=== PATIENT | male | born 1995 | race Caucasian/White ===

== ENCOUNTER → 2022-10-08 16:20 | Outpatient (BNVA) | payer SELFPAY | PROVIDERS: Family Provider Pediatrics Adolescent Medicine; PCP Pediatrics Adolescent Medicine; Visit Provider Registered Nurse Neonatal Intensive Care | DX: R50.9 Fever, unspecified (principal) | CPT/HCPCS: 87400 ==

== ENCOUNTER 2023-06-20 07:29 | Inpatient (IN) | payer SELFPAY ==
[2023-06-20] VITALS (50 sets, daily range): BP systolic 129–149; BP diastolic 83–101; PULSE 60–106; RESP 11–23; TEMP 36.9; O2SAT 97–100; BMI 21.7
--- NOTE | 2023-06-20 07:38 | ED_ITS ---
HPI - Abdominal Pain General: Chief Complaint: Abdominal Pain Stated Complaint: abd pain Time Seen by Provider: 06/20/23 07:37 Source: patient Mode of arrival: ambulatory History of Present Illness: 28 yo male presents to the emergency room with complaints of left lower quadrant abdominal pain that he states began yesterday. He denies any dysuria urgency or frequency he has been nauseated and vomited a couple of times. He has not had any hematochezia melena hematemesis or coffee-ground emesis. He is afebrile his vital signs are stable no hematuria dysuria urgency or frequency. MD elicited complaint: abdominal pain Onset (ago): day(s) (1) Location: [facility] Quality: cramping Exacerbating factors: nothing Relieving factors: nothing Associated Symptoms: Reports nausea and vomiting (x1); Denies anorexia, belching, bloating, change in bowel habits, change in stool character, chills, coffee ground emesis, constipation, GI cramping, diarrhea, dyspepsia, dysuria, excessive flatus, fever(s), heartburn, hematochezia, hematuria, hematemesis, fecal incontinence, loose stools, melena, poor appetite and syncope Review of Systems Const: Denies: fever(s) or chills ENMT: Denies: throat pain, ear or mastoid pain, nasal discharge or nasal congestion Card: Denies: chest pain or syncope Resp: Denies: dyspnea, productive cough or non-productive cough GI: Reports: abdominal pain, nausea and vomiting (x1); Denies: hematemesis, coffee ground emesis, heartburn, diarrhea, constipation, bloating, GI cramping, belching, excessive flatus, fecal incontinence, change in bowel habits, change in stool character, hematochezia or melena : Denies: dysuria, urinary frequency, urinary urgency or hematuria Skin/Breast: Denies: rash or pruritus PFSH ED PFSH: Family History (Updated 06/20/23 @ 09:34 by Mauro Harrell MD) Other Cancer Dementia Social History (Updated 06/20/23 @ 09:34 by Mauro Harrell MD) Smoking and tobacco status: current every day smoker Alcohol intake: current Substance/Drug Use: never Physical Exam Const: COMMON NORMALS: no acute distress GENERAL APPEARANCE: cooperative and comfortable ORIENTATION/CONSCIOUSNESS: Yes awake, Yes oriented to person, Yes oriented to place and Yes oriented to time HENMT: COMMON NORMALS: normocephalic, atraumatic and hearing grossly normal bilaterally HEAD & SCALP: normocephalic and atraumatic Resp: COMMON NORMALS: normal respiratory effort, No retractions, No use of accessory muscles and clear to auscultation bilaterally AUSCULTATION: clear to auscultation bilaterally Cardio: COMMON NORMALS: regular rate, regular rhythm and No murmurs present (Cardio) RATE: regular rate RHYTHM: regular rhythm GI: COMMON NORMALS: No hepatosplenomegaly present AUSCULTATION: Yes normoactive bowel sounds PALPATION: Yes Tenderness to palpation present (GI) Details: LLQ, No Guarding due to palpation present (GI) and Yes No hepatosplenomegaly present Extremity: COMMON NORMALS: normal to inspection, capillary refill normal, no clubbing, cyanosis or edema, no calf tenderness and no pedal edema Neuro: SENSORIUM/ORIENTATION: Yes oriented to person, Yes oriented to place and Yes oriented to time Skin: COMMON NORMALS: no rashes or lesions noted GENERAL SKIN EXAM: no rashes or lesions noted Course Vital Signs: Vital signs: Vital Signs Temperature 98.4 F 06/20/23 07:35 Pulse Rate 71 06/20/23 12:55 Respiratory Rate 12 06/20/23 12:55 Blood Pressure 138/101 06/20/23 12:55 Pulse Oximetry 98 06/20/23 12:55 Oxygen Delivery Me thod Room Air 06/20/23 10:26 MDM - Abdominal Pain Medical Decision Making Elevated liver enzymes and pancreatic enzymes. CT abdome showing the acute pancreatitis. No evidence of dilation and common bile duct there is some questi onable early necrotic areas on pancreas. We will admit discussed with hospitalist admit to ICU patient did admit to heavy alcohol use he is last drank 2 days ago he has had problems with withdrawal symptoms in the past Dr. Harrell seen the patient and written orders will admit to the ICU on [facility] protocol. Triglycerides are also elevated. Differential Diagnosis Likely abdominal pain, acute appendicitis, calculus of kidney, gastroenteritis and pancreatitis Medical Records I reviewed the patient's medical records. Lab Data I reviewed the patient's lab results. 06/20/23 07:43 06/20/23 07:43 Labs/Radiology: Laboratory Results WBC 9.78 10^3/uL (3.29-11.43) 06/20/23 07:43 RBC 5.08 10^6/uL (3.85-5.65) 06/20/23 07:43 Hgb 16.90 g/dL (11.27-16.99) 06/20/23 07:43 Hct 48.2 % (37-53) 06/20/23 07:43 MCV 94.9 fl (82-101) 06/20/23 07:43 MCH 33.3 pg (27-33) H 06/20/23 07:43 MCHC 35.1 g/dL (30-55) 06/20/23 07:43 RDW 10.6 % (12.1-15.1) L 06/20/23 07:43 Plt Count 147 10^3/cmm (157-399) L 06/20/23 07:43 MPV 10.6 fL (7.4-10.4) H 06/20/23 07:43 Neut % (Auto) 87.5 % 06/20/23 07:43 Lymph % (Auto) 8.5 % 06/20/23 07:43 [place] % (Auto) 3.4 % 06/20/23 07:43 Eos % (Auto) 0.1 % 06/20/23 07:43 Baso % (Auto) 0.3 % 06/20/23 07:43 Neut # (Auto) 8.56 10^3/uL (1.8-7.7) H 06/20/23 07:43 Lymph # (Auto) 0.8 10^3/uL (0.8-4.8) 06/20/23 07:43 [place] # (Auto) 0.3 10^3/uL (0.2-0.9) 06/20/23 07:43 Eos # (Auto) 0.0 10^3/uL (0.0-0.8) 06/20/23 07:43 Baso # (Auto) 0.0 10^3/uL (0.0-0.1) 06/20/23 07:43 Nucleated RBC % (auto) 0 % 06/20/23 07:43 Nucleated RBCs # 0.0 /100WBC 06/20/23 07:43 PT 12.90 SECONDS (12.1-14.9) 06/20/23 07:43 INR 0.95 (0.8-1.2) 06/20/23 07:43 Sodium 136 mmol/L (136-145) 06/20/23 07:43 Potassium 4.3 mmol/L (3.5-5.1) 06/20/23 07:43 Chloride 93 mmol/L (98-107) L 06/20/23 07:43 Carbon Dioxide 20 mmol/L (22-29) L 06/20/23 07:43 Anion Gap 27.3 (5-19) H 06/20/23 07:43 BUN 14 mg/dL (6-20) 06/20/23 07:43 Creatinine 0.7 mg/dL (0.7-1.2) 06/20/23 07:43 GFR Calculation 133.3 mL/min (90-130) H 06/20/23 07:43 Glucose 110 mg/dL (65-115) 06/20/23 07:43 Calculated Osmolality 283 mOsm/kg (285-295) L 06/20/23 07:43 Lactic Acid 1.1 mmol/L (0.5-2.2) 06/20/23 07:43 Calcium 9.8 mg/dL (8.5-10.5) 06/20/23 07:43 Magnesium 1.7 mg/dL (1.7-2.3) 06/20/23 07:43 Total Bilirubin 3.8 mg/dL (0.15-1.2) H 06/20/23 07:43 AST 357 U/L (0-40) H 06/20/23 07:43 ALT 141 U/L (0-41) H 06/20/23 07:43 Alkaline Phosphatase 343 U/L (40-130) H 06/20/23 07:43 Total Protein 8.8 g/dL (6.6-8.7) H 06/20/23 07:43 Albumin 4.5 g/dL (3.5-5.2) 06/20/23 07:43 Globulin 4.3 g/dL (1.3-4.6) 06/20/23 07:43 Triglycerides 691 mg/dL (0-150) H 06/20/23 07:43 LDL Cholesterol Direct 83 mg/dL (0-100) 06/20/23 07:43 Lipase 637 U/L (13-60) H 06/20/23 07:43 TSH 0.58 uIU/mL (0.27-4.20) 06/20/23 07:43 Urine Color [place] (Yellow) 06/20/23 07:52 Urine Appearance Hazy (CLEAR) A 06/20/23 07:52 Urine pH 5 (5-7) 06/20/23 07:52 Ur Specific [place] 1.025 (1.005-1.030) 06/20/23 07:52 Urine Protein Trace (Negative) 06/20/23 07:52 Urine Glucose (UA) Norm (Normal) 06/20/23 07:52 Urine Ketones 3+ (Negative) H 06/20/23 07:52 Urine Blood Trace (Negative) H 06/20/23 07:52 Urine Nitrate Negative (Negative) 06/20/23 07:52 Urine Bilirubin 2+ (Negative) H 06/20/23 07:52 Urine Urobilinogen 4 mg/dL (Negative) H 06/20/23 07:52 Ur Leukocyte Esterase Trace (Negative) H 06/20/23 07:52 Urine RBC 0-4 /hpf (0-2) H 06/20/23 07:52 Urine WBC 0-4 /hpf (0-5) H 06/20/23 07:52 Ur Squamous Epith Cells 0-4 /hpf (0-5) H 06/20/23 07:52 Ur Transition Epith Cell 0-4 /hpf 06/20/23 07:52 Amorphous Sediment Not Reportable 06/20/23 07:52 Urine Bacteria 2+ /hpf (NONE) H 06/20/23 07:52 Hyaline Casts 0-4 /lpf H 06/20/23 07:52 Coarse Granular Casts Rare /lpf 06/20/23 07:52 Urine Mucus 3+ /hpf 06/20/23 07:52 Hepatitis A IgM Ab Non-reactive (Nonreactive) 06/20/23 07:43 Hep Bs Antigen Non-reactive (Nonreactive) 06/20/23 07:43 Hep B Core IgM Ab Non-reactive (Nonreactive) 06/20/23 07:43 Hepatitis C Antibody Non-reactive (Nonreactive) 06/20/23 07:43 Discharge Plan Discharge Patient Disposition: Admitted As Inpatient Admit Provider: Mauro Harrell Clinical Impression: Acute pancreatitis, Hypertriglyceridemia, Alcoholism, Transaminitis Condition: Stable Coding Level of Care Code ED Research Group Director for [employer]
--- NOTE | 2023-06-20 07:55 | XR_ITS ---
WS: [id number] KUB, AP view, 06/20/2023 Clinical Data: abd pain Comparison: None. Findings: No abnormal intraabdominal masses or calcifications are seen. The central small bowel shows minimal d ilatation. There is air in the stomach and the colon. The bones of the lower thorax, lumbar spine, pe lvis and hips are unremarkable. Impression: Moderate dilatation of central small bowel loops which is probably from an ileus rather than an obstr uction.
[2023-06-20 07:56] LABS: Basophils % 0.3 %; Eosinophils % 0.1 %; Hematocrit 48.2 % (37-53); Lymphocytes # 0.8 10^3/uL (0.8-4.8); Lymphocytes % 8.5 %; Mean Corpuscular HGB Conc 35.1 g/dL (30-55); Mean Corpuscular Hemoglobin 33.3 pg (27-33); Mean Corpuscular Volume 94.9 fl (82-101); Mean Platelet Volume 10.6 fL (7.4-10.4); Monocytes # 0.3 10^3/uL (0.2-0.9); Monocytes % 3.4 %; Neutrophils # 8.56 10^3/uL (1.8-7.7); Neutrophils % 87.5 %; Nucleated Red Blood Cells % 0 %; Platelet Count 147 10^3/cmm (157-399); Red Blood Count 5.08 10^6/uL (3.85-5.65); Red Cell Distribution Width 10.6 % (12.1-15.1); White Blood Count 9.78 10^3/uL (3.29-11.43)
[2023-06-20 08:14] LABS: Add Urine Microscopic? YES; Bilirubin Urine 2+ (Negative); Blood Urine Trace (Negative); Glucose Urine UA Norm (Normal); Ketones Urine 3+ (Negative); Leukocyte Esterase Urine Trace (Negative); Nitrate Urine Negative (Negative); Protein Urine Trace (Negative); Specific Gravity, Urine 1.025 (1.005-1.030); Urine Appearance Hazy (CLEAR); Urine Color Amber (Yellow); Urobilinogen Urine 4 mg/dL (Negative); pH Urine 5 (5-7)
[2023-06-20 08:16] LABS: Bacteria Urine 2+ /hpf; Coarse Granular Casts Urine RARE /lpf; Hyaline Casts Urine 0-4 /lpf; Mucus Urine 3+ /hpf; RBC Urine 0-4 /hpf (0-2); Squamous Epithelial Cell Urine 0-4 /hpf (0-5); Transitional Epi Cells Urine 0-4 /hpf; WBC Urine 0-4 /hpf (0-5)
[2023-06-20 08:17] LABS: Add Urine Culture? No
[2023-06-20 08:18] LABS: Alanine Aminotransferase 141 U/L (0-41); Albumin Level 4.5 g/dL (3.5-5.2); Alkaline Phosphatase 343 U/L (40-130); Aspartate Amino Transferase 357 U/L (0-40); Blood Urea Nitrogen 14 mg/dL (6-20); Calcium 9.8 mg/dL (8.5-10.5); Carbon Dioxide 20 mmol/L (22-29); Chloride 93 mmol/L (98-107); Globulin 4.3 g/dL (1.3-4.6); Glomerular Filtration Rate 133.3 mL/min (90-130); Glucose 110 mg/dL (65-115); Osmolality Calculated 283 mOsm/kg (285-295); Sodium 136 mmol/L (136-145); Total Bilirubin 3.8 mg/dL (0.15-1.2); Total Protein 8.8 g/dL (6.6-8.7)
[2023-06-20 08:21] LABS: Anion Gap 27.3 (5-19); Potassium 4.3 mmol/L (3.5-5.1)
[2023-06-20 08:28] LABS: Lipase 637 U/L (13-60)
[2023-06-20] MEDS: lactated ringers 1,000 ML 999 ML IV ×2 (08:30→09:36)
--- NOTE | 2023-06-20 08:50 | CT_ITS ---
WS: [id number] CT ABDOMEN PELVIS TECHNIQUE: Contrast-enhanced CT of the abdomen and pelvis with coronal and sagittal reformatted image s. CLINICAL INFORMATION: abd pain COMPARISON: None. DLP: 394.[address] scans at [facility] use at least one of these dose optimization techniques: automated e xposure control; mA and/or kV adjustment per patient size (includes targeted exams where dose is matc hed to clinical indication); or iterative reconstruction. FINDINGS: Diffuse edema and heterogeneous enhancement involving pancreas worse involving the pancreatic head wi th diffuse surrounding fluid and edema compatible with acute pancreatitis. No drainable fluid collect ion or abscess. Portal vein and splenic vein appear patent. SMV appears patent. No intrahepatic bilia ry ductal dilatation. No significant common bile duct dilatation. Suggestion of pancreatic divisum. R ecommend follow-up to resolution. Mild gallbladder wall enhancement likely reactive. Hepatomegaly diffuse fatty filtration of the liver . Normal GE junction. Normal caliber abdominal aorta. Celiac and SMA are patent. Adrenal glands are normal. Normal renal pa renchymal enhancement. No hydronephrosis. Fluid and edema extends into the mid abdomen and RIGHT paracolic gutter. Small amount of free fluid i n the pelvis. Lung bases are well aerated. Normal lumbar spine. IMPRESSION: 1. Diffuse edema involving the pancreas worse involving the pancreatic head with diffuse heterogeneo us pancreatic parenchymal enhancement. Prominent surrounding fluid and edema compatible with acute pa ncreatitis. Suggestion of pancreatic divisum with prominent pancreatic head. Recommend follow-up to r esolution. 2. Hepatomegaly diffuse fatty infiltration of the liver. 3. Splenic vein and SMV are patent. Normal portal vein. 4. Common bile duct appears normal caliber of the pancreatic head. Mild reactive gallbladder wall en hancement Notified Alvaro Peck DO at 06/20/2023 9:46 AM.
[2023-06-20 09:12] LABS: INR 0.95 (0.8-1.2)
[2023-06-20 09:17] LABS: Lactic Sepsis W/Reflex 1.1 mmol/L (0.5-2.2); Triglycerides 691 mg/dL (0-150)
[2023-06-20] MEDS: iohexol 350 mg/mL 500 mL Btl (per mL) IV (09:20)
[2023-06-20 09:30] LABS: Hepatitis A Antibody IgM Non-Reactive (Nonreactive); Hepatitis B Core IgM Non-Reactive (Nonreactive); Hepatitis B Surface Antigen Non-Reactive (Nonreactive); Hepatitis C Virus Antibody Non-Reactive (Nonreactive)
--- NOTE | 2023-06-20 09:32 | P.HP_ITS ---
Providers/Chief Complaint Admitting Physician: Mauro Harrell MD Chief Complaint: abd pain History of Present Illness Patrick Gracia is a 28 year old male presenting to the emergency department with abdominal pain and vomiting. This started yesterday. No blood in emesis. No diarrhea. Last bowel movement yesterday, somewhat hard. Denies any past history of pancreatitis. Does admit to heavy drinking, many ounces per day for an extended period of time. Reports that when he stops drinking he usually withdraws within 2 days and it becomes severe enough that he starts drinking again. No history of any liver disease that he recalls. He denies taking any anti-inflammatories at home. No recent fevers, other ill family members, pancreas problems in the family. States his abdominal pain is mainly epigastric. No issues urinating. No history of IV drug use. Review of Systems General: Reports: 10 or more systems reviewed and unremarkable except in HPI and below Card: Denies: chest pain Resp: Denies: dyspnea GI: Reports: abdominal pain, nausea and vomiting; Denies: hematemesis, hematochezia or melena Medications/Allergies Home Medications Medication Instructions Recorded Confirmed Last Taken Type albuterol sulfate 90 mcg/actuation 2 puff inhalation Q6H PRN 10/08/22 06/20/23 Unknown Rx aerosol inhaler (Ventolin HFA) shortness of breath or wheezing #8.5 grams Allergies Allergy/AdvReac Type Severity Reaction Status Date / Time No Known Allergies Allergy Verified 06/20/23 07:39 PFSH Acute PFSH: Family History (Updated 06/20/23 @ 09:34 by Mauro Harrell MD) Other Cancer Dementia Social History (Updated 06/20/23 @ 09:34 by Mauro Harrell MD) Smoking and tobacco status: current every day smoker Alcohol intake: current Substance/Drug Use: never Vitals/I&O/Wt Last Vital Signs Temp 98.4 F 06/20/23 07:35 Pulse 76 06/20/23 07:35 Resp 18 06/20/23 07:35 BP 146/99 06/20/23 07:35 Pulse Ox 100 06/20/23 07:35 O2 Del Method Room Air 06/20/23 07:35 Weight last 48 hrs Weight 74.843 kg Physical Exam Narrative: General exam is a white male, reporting abdominal pain HEENT: Atraumatic and normocephalic. Oropharynx clear. Neck is supple no lymphadenopathy or thyromegaly Cardiovascular regular rate and rhythm without murmur, no S3 or S4 Lungs clear no wheezing or crackles Abdomen tenderness, supraumbilical, mainly in the epigastric and left upper quadrant area. Positive bowel sounds. Extremities no cyanosis clubbing or edema, cap refill brisk Skin no rash Neuro no obvious focal deficits. Data 06/20/23 07:43 06/20/23 07:43 Other Labs: Liver function tests are abnormal with a total bilirubin of 3.8, AST of 357, ALT 141, alk phos of 343. Calcium, albumin normal. Lactate that I obtained is 1.1. Triglyceride level which I instructed ER to obtain was 691. Lipase 637 TSH I have ordered and is pending Urinalysis 0-4 whites, 0-4 reds Hepatitis panel which I ordered is nonreactive KUB demonstrates moderate dilation of central bowel loops, possible ileus CT abdomen pelvis demonstrates diffuse edema of the pancreas, consistent with pancreatitis.Cannot rule out pancreatic divisum. Consider repeat scan in the future. Hepatomegaly is noted. No evidence of splenic or portal vein thrombosis. Bile duct does not appear obstructed. A&P Assessment and plan (1) Acute pancreatitis: Patient presents with symptomatology, and blood work consistent with acute pancreatitis. CT scan demonstrates findings as noted above. For triglyceridemia, will initiate insulin drip, D5, to lower triglyceride level Likely etiology is alcohol. We will provide him with rehabilitation i nformation. N.p.o. for now except ice chips. When no longer vomiting consider clear liquid diet Pain control with morphine No indication for antibiotics currently, continue to monitor closely Secondary to pancreatitis associated with hypertriglyceridemia in the face of alcoholism with high chance of withdrawal as he has reported withdrawal symptoms in the past at home he will be admitted to the ICU. (2) Hypertriglyceridemia: Likely secondary to alcoholism Secondary to pancreatitis with triglyceride level over 500 we will initiate insulin drip. This will require ICU care, close monitoring. Initiate insulin drip 0.1 units/kg/h Initiate D5 to prevent hypoglycemia. Goal of blood sugar 125-200. Check triglyceride level in 12 hours with electrolytes. Plan on discontinuing insulin drip when triglyceride level less than 500. Check TSH (3) Alcoholism: [facility] protocol Rehabilitation materials will be given (4) Transaminitis: Associated with elevated bilirubin as well. No evidence of obstruction on CT. Likely this is secondary to his alcoholism. Monitor this closely. I suspect with treatment his transaminitis will improve. Bilirubin may take several days before it starts decreasing. Repeat INR tomorrow Plan Full code Lovenox for DVT prophylaxis Attestations Medical Necessity Statement*: Will require greater than 2 midnight stay for evaluation and treatment of alc ohol induced pancreatitis Diagnoses Acute pancreatitis K85.90 Hypertriglyceridemia E78.1 Alcoholism F10.20 Transaminitis R74.01 Time Spent (min) 57
[2023-06-20] MEDS: sodium chloride 0.9% 1,000 ML 999 ML IV (09:36)
[2023-06-20 09:49] LABS: Magnesium 1.7 mg/dL (1.7-2.3); Thyroid Stimulating Hormone 0.58 uIU/mL (0.27-4.20)
[2023-06-20 10:01] LABS: LDL Cholesterol Direct 83 mg/dL (0-100)
[2023-06-20] MEDS: dextrose 5%-ns + KCl 20 20 MEQ/1,000 ML BAG 125 MEQ IV (11:19)
[2023-06-20] MEDS: pantoprazole 40 mg SDV IVP ×2 (11:20→22:01)
[2023-06-20] MEDS: morphine 4 mg/mL SDV 1 mL 2 MG IVP ×2 (11:20→13:02)
[2023-06-20] MEDS: enoxaparin 40 mg/0.4 mL Syringe SUBCUT (11:20)
[2023-06-20] MEDS: nicotine 21 mg Patch 1 PATCH TRANSDERMA (11:20)
[2023-06-20] MEDS: insulin regular-human 250 UNIT in sodium chloride 0.9% 250 ML 7.07 UNIT IV (11:22)
[2023-06-20 13:26] LABS: Glucose Point of Care 107 mg/dL (70-110)
[2023-06-20 13:26] LABS: Glucose Point of Care 87 mg/dL (70-110)
[2023-06-20 14:34] LABS: Glucose Point of Care 76 mg/dL (70-110)
[2023-06-20] MEDS: morphine 4 mg/mL SDV 1 mL IVP ×4 (15:10→23:53)
[2023-06-20] MEDS: dextrose 10% 1,000 ML 50 ML IV (16:05)
[2023-06-20 16:12] LABS: Glucose Point of Care 80 mg/dL (70-110)
[2023-06-20 17:20] LABS: Glucose Point of Care 57 mg/dL (70-110)
[2023-06-20 18:03] LABS: Glucose Point of Care 142 mg/dL (70-110)
[2023-06-20 18:16] LABS: Blood Urea Nitrogen 6 mg/dL (6-20); Calcium 8.4 mg/dL (8.5-10.5); Carbon Dioxide 26 mmol/L (22-29); Chloride 98 mmol/L (98-107); Glomerular Filtration Rate 159.3 mL/min (90-130); Glucose 145 mg/dL (65-115); Magnesium 1.7 mg/dL (1.7-2.3); Osmolality Calculated 278 mOsm/kg (285-295); Phosphorus 1.4 mg/dL (2.5-4.5); Sodium 134 mmol/L (136-145); Triglycerides 253 mg/dL (0-150)
[2023-06-20 18:18] LABS: Anion Gap 13.6 (5-19); Potassium 3.6 mmol/L (3.5-5.1)
[2023-06-20] MEDS: sodium chlor 0.9% + KCl 20 mEq 20 MEQ/1,000 ML BAG 125 MEQ IV (18:29)
[2023-06-20] MEDS: oxyCODONE-APAP 5-325 mg Tablet 1 TAB PO ×2 (19:26→23:03)
[2023-06-20 20:53] LABS: Glucose Point of Care 116 mg/dL (70-110)
[2023-06-21] VITALS (47 sets, daily range): BP systolic 113–148; BP diastolic 71–111; PULSE 57–101; RESP 13–23; TEMP 36.5–37.1; O2SAT 90–99
[2023-06-21] MEDS: TRAMadol 50 mg Tablet PO (00:47)
[2023-06-21] MEDS: LORazepam 2 mg/mL INJ 1 mL IVP ×2 (00:47→21:10)
[2023-06-21] MEDS: sodium chlor 0.9% + KCl 20 mEq 20 MEQ/1,000 ML BAG 125 MEQ IV ×3 (02:39→18:34)
[2023-06-21] MEDS: morphine 4 mg/mL SDV 1 mL IVP ×4 (02:42→14:11)
[2023-06-21 05:08] LABS: Basophils % 0.4 %; Eosinophils % 0.2 %; Hematocrit 43.3 % (37-53); Lymphocytes # 1.2 10^3/uL (0.8-4.8); Lymphocytes % 22.6 %; Mean Corpuscular HGB Conc 34.4 g/dL (30-55); Mean Corpuscular Hemoglobin 33.2 pg (27-33); Mean Corpuscular Volume 96.4 fl (82-101); Monocytes # 0.2 10^3/uL (0.2-0.9); Monocytes % 3.9 %; Neutrophils # 3.95 10^3/uL (1.8-7.7); Neutrophils % 72.5 %; Nucleated Red Blood Cells % 0 %; Platelet Count 98 10^3/cmm (157-399); Red Blood Count 4.49 10^6/uL (3.85-5.65); Red Cell Distribution Width 10.6 % (12.1-15.1); White Blood Count 5.44 10^3/uL (3.29-11.43)
[2023-06-21 05:27] LABS: Alanine Aminotransferase 82 U/L (0-41); Albumin Level 3.1 g/dL (3.5-5.2); Alkaline Phosphatase 218 U/L (40-130); Anion Gap 13.1 (5-19); Aspartate Amino Transferase 194 U/L (0-40); Blood Urea Nitrogen 6 mg/dL (6-20); Calcium 8.5 mg/dL (8.5-10.5); Carbon Dioxide 28 mmol/L (22-29); Chloride 99 mmol/L (98-107); Globulin 3.4 g/dL (1.3-4.6); Glomerular Filtration Rate 159.3 mL/min (90-130); Glucose 92 mg/dL (65-115); Magnesium 1.7 mg/dL (1.7-2.3); Osmolality Calculated 279 mOsm/kg (285-295); Potassium 4.1 mmol/L (3.5-5.1); Sodium 136 mmol/L (136-145); Total Bilirubin 2.8 mg/dL (0.15-1.2); Total Protein 6.5 g/dL (6.6-8.7); Triglycerides 198 mg/dL (0-150)
[2023-06-21 05:43] LABS: Slide Review Slide Review Perform
--- NOTE | 2023-06-21 08:54 | PC.NURSE ---
0730 Patient sleeping well with normal respirations, vitals stable.
[2023-06-21] MEDS: multivitamin therapeutic Tablet 1 TAB PO (09:22)
[2023-06-21] MEDS: folic acid 1 mg Tablet PO (09:31)
[2023-06-21] MEDS: thiamine 100 mg Tablet PO (09:31)
[2023-06-21] MEDS: enoxaparin 40 mg/0.4 mL Syringe SUBCUT (10:32)
[2023-06-21] MEDS: pantoprazole 40 mg SDV IVP ×2 (10:32→22:54)
[2023-06-21] MEDS: oxyCODONE-APAP 5-325 mg Tablet 1 TAB PO ×3 (10:54→21:10)
--- NOTE | 2023-06-21 13:34 | P.PN_ITS ---
Subjective Subjective: Patient tolerating clear liquids Complaining of mild discomfort midepigastric region Insulin drip turned off Vitals/I&O/Wt Last Vital Signs Temp 98.4 F 06/20/23 07:35 Pulse 76 06/21/23 08:30 Resp 16 06/21/23 10:54 BP 136/96 06/21/23 08:30 Pulse Ox 99 06/21/23 10:54 O2 Del Method Room Air 06/20/23 10:26 06/20/23 06/21/23 06/21/23 22:59 06:59 14:59 Intake Total 4043.598 / 5043.598 1000 / 6043.598 975 / 975 Output Total 600 / 600 500 / 500 Balance 4043.598 / 5043.598 400 / 5443.598 475 / 475 Weight last 48 hrs Weight 74.843 kg Physical Exam Narrative: Patient is awake and alert Mild tenderness midepigastric region Signs of dehydration improving Nonfocal neuro exam GCS 15 Currently on room Data 06/21/23 04:07 06/21/23 04:07 A&P Assessment and plan (1) Transaminitis: (2) Alcoholism: (3) Hypertriglyceridemia: (4) Acute pancreatitis: Plan I have asked patient to let us know if his pain is tolerable with advancement of diet which is clear liquids for today I have asked him to continue clear liquids for next 24 to 72 hours and then advance gradually, he will let us know by 4 PM if he would like to go home I will give him opioids, thiamine and folic acid He is motivated for alcohol cessation Full code Insulin drip turned off for hypertriglyceridemia Attestations Medical Necessity Statement*: Discharge later today versus tomorrow Diagnoses Transaminitis R74.01 Alcoholism F10.20 Hypertriglyceridemia E78.1 Acute pancreatitis K85.90
[2023-06-21] MEDS: ondansetron 2 mg/ML SDV 2 mL 4 MG IVP (21:10)
[2023-06-22] VITALS (10 sets, daily range): BP systolic 104–142; BP diastolic 78–96; PULSE 83–89; RESP 19–30; TEMP 36.9; O2SAT 96–97
[2023-06-22] MEDS: sodium chlor 0.9% + KCl 20 mEq 20 MEQ/1,000 ML BAG 125 MEQ IV (01:44)
--- NOTE | 2023-06-22 07:44 | P.DS_ITS ---
Discharge Providers Date of Admission: 06/20/23 09:12 Date of Discharge: June 21, 2023 Attending Provider at Admission: Mauro Harrell MD Attending Provider at Discharge: Richard Aguilera MD Diagnoses at Discharge Discharge Diagnosis (1) Acute pancreatitis: Status: Acute (2) Hypertriglyceridemia: Status: Acute (3) Alcoholism: Status: Acute (4) Transaminitis: Status: Acute Reason for Visit Reason for Visit: abd pain Hospital Course Hospital Course 28-year-old male who was admitted for management evaluation of abdominal pain, nausea and vomiting he was diagnosed with alcohol induced pancreatitis, he was started on insulin drip in the ICU for hypertriglyceridemia of 700, overnight his triglyceridemia improved he was started on clear liquid diet, insulin drip stopped, patient is requiring opioids for abdominal discomfort nausea vomiting has improved. I have counseled patient to quit alcohol. Patient is motivated for alcohol cessation. At the time of discharge I will give him opioids, thiamine and folic acid Physical Exam Narrative: Young male Signs of dehydration Mild abdominal tenderness on deep palpation midepigastric region Hemodynamically stable Afebrile Pleasant and cooperative No signs of confusion Discharge Data Studies Completed and Pending Completed Studies During Hospitalization Category Date Time Status CT abdomen pelvis w con* [id number] Stat Cat Scan 06/20/23 08:50 Completed XR KUB portable [id number] Stat Exams 06/20/23 07:55 Completed Laboratory Results WBC 5.44 10^3/uL (3.29-11.43) 06/21/23 04:07 RBC 4.49 10^6/uL (3.85-5.65) 06/21/23 04:07 Hgb 14.90 g/dL (11.27-16.99) 06/21/23 04:07 Hct 43.3 % (37-53) 06/21/23 04:07 MCV 96.4 fl (82-101) 06/21/23 04:07 MCH 33.2 pg (27-33) H 06/21/23 04:07 MCHC 34.4 g/dL (30-55) 06/21/23 04:07 RDW 10.6 % (12.1-15.1) L 06/21/23 04:07 Plt Count 98 10^3/cmm (157-399) L D 06/21/23 04:07 MPV 11.0 fL (7.4-10.4) H 06/21/23 04:07 Neut % (Auto) 72.5 % 06/21/23 04:07 Lymph % (Auto) 22.6 % 06/21/23 04:07 [place] % (Auto) 3.9 % 06/21/23 04:07 Eos % (Auto) 0.2 % 06/21/23 04:07 Baso % (Auto) 0.4 % 06/21/23 04:07 Neut # (Auto) 3.95 10^3/uL (1.8-7.7) 06/21/23 04:07 Lymph # (Auto) 1.2 10^3/uL (0.8-4.8) 06/21/23 04:07 [place] # (Auto) 0.2 10^3/uL (0.2-0.9) 06/21/23 04:07 Eos # (Auto) 0.0 10^3/uL (0.0-0.8) 06/21/23 04:07 Baso # (Auto) 0.0 10^3/uL (0.0-0.1) 06/21/23 04:07 Nucleated RBC % (auto) 0 % 06/21/23 04:07 Nucleated RBCs # 0.0 /100WBC 06/21/23 04:07 PT 12.90 SECONDS (12.1-14.9) 06/20/23 07:43 INR 0.95 (0.8-1.2) 06/20/23 07:43 Sodium 136 mmol/L (136-145) 06/21/23 04:07 Potassium 4.1 mmol/L (3.5-5.1) 06/21/23 04:07 Chloride 99 mmol/L (98-107) 06/21/23 04:07 Carbon Dioxide 28 mmol/L (22-29) 06/21/23 04:07 Anion Gap 13.1 (5-19) 06/21/23 04:07 BUN 6 mg/dL (6-20) 06/21/23 04:07 Creatinine 0.6 mg/dL (0.7-1.2) L 06/21/23 04:07 GFR Calculation 159.3 mL/min (90-130) H 06/21/23 04:07 Glucose 92 mg/dL (65-115) 06/21/23 04:07 POC Glucose 116 mg/dL (70-110) H 06/20/23 20:05 Calculated Osmolality 279 mOsm/kg (285-295) L 06/21/23 04:07 Lactic Acid 1.1 mmol/L (0.5-2.2) 06/20/23 07:43 Calcium 8.5 mg/dL (8.5-10.5) 06/21/23 04:07 Phosphorus 1.4 mg/dL (2.5-4.5) L 06/20/23 17:45 Magnesium 1.7 mg/dL (1.7-2.3) 06/21/23 04:07 Total Bilirubin 2.8 mg/dL (0.15-1.2) H 06/21/23 04:07 AST 194 U/L (0-40) H 06/21/23 04:07 ALT 82 U/L (0-41) H 06/21/23 04:07 Alkaline Phosphatase 218 U/L (40-130) H 06/21/23 04:07 Total Protein 6.5 g/dL (6.6-8.7) L D 06/21/23 04:07 Albumin 3.1 g/dL (3.5-5.2) L 06/21/23 04:07 Globulin 3.4 g/dL (1.3-4.6) 06/21/23 04:07 Triglycerides 198 mg/dL (0-150) H 06/21/23 04:07 LDL Cholesterol Direct 83 mg/dL (0-100) 06/20/23 07:43 Lipase 637 U/L (13-60) H 06/20/23 07:43 TSH 0.58 uIU/mL (0.27-4.20) 06/20/23 07:43 Urine Color [place] (Yellow) 06/20/23 07:52 Urine Appearance Hazy (CLEAR) A 06/20/23 07:52 Urine pH 5 (5-7) 06/20/23 07:52 Ur Specific [place] 1.025 (1.005-1.030) 06/20/23 07:52 Urine Protein Trace (Negative) 06/20/23 07:52 Urine Glucose (UA) Norm (Normal) 06/20/23 07:52 Urine Ketones 3+ (Negative) H 06/20/23 07:52 Urine Blood Trace (Negative) H 06/20/23 07:52 Urine Nitrate Negative (Negative) 06/20/23 07:52 Urine Bilirubin 2+ (Negative) H 06/20/23 07:52 Urine Urobilinogen 4 mg/dL (Negative) H 06/20/23 07:52 Ur Leukocyte Esterase Trace (Negative) H 06/20/23 07:52 Urine RBC 0-4 /hpf (0-2) H 06/20/23 07:52 Urine WBC 0-4 /hpf (0-5) H 06/20/23 07:52 Ur Squamous Epith Cells 0-4 /hpf (0-5) H 06/20/23 07:52 Ur Transition Epith Cell 0-4 /hpf 06/20/23 07:52 Amorphous Sediment Not Reportable 06/20/23 07:52 Urine Bacteria 2+ /hpf (NONE) H 06/20/23 07:52 Hyaline Casts 0-4 /lpf H 06/20/23 07:52 Coarse Granular Casts Rare /lpf 06/20/23 07:52 Urine Mucus 3+ /hpf 06/20/23 07:52 Hepatitis A IgM Ab Non-reactive (Nonreactive) 06/20/23 07:43 Hep Bs Antigen Non-reactive (Nonreactive) 06/20/23 07:43 Hep B Core IgM Ab Non-reactive (Nonreactive) 06/20/23 07:43 Hepatitis C Antibody Non-reactive (Nonreactive) 06/20/23 07:43 Vitals Last Vital Signs Temp 98.4 F 06/20/23 07:35 Pulse 76 06/21/23 08:30 Resp 16 06/21/23 10:54 BP 136/96 06/21/23 08:30 Pulse Ox 99 06/21/23 10:54 O2 Del Method Room Air 06/20/23 10:26 Discharge Plan Discharge Patient Disposition: Home Condition: Stable Prescriptions: New oxycodone-acetaminophen 5-325 mg Tablet 1 tab PO Q4H PRN (Reason: Moderate Pain) Qty: 14 0RF folic acid 1 mg Tablet 1 mg PO DAILY Qty: 30 0RF thiamine mononitrate (vit B1) [Vitamin B-1 (mononitrate)] 100 mg Tablet 100 mg PO DAILY Qty: 30 0RF ondansetron HCl 4 mg tablet 4 mg PO DAILY PRN (Reason: nausea and vomiting) 4 Days Qty: 14 0RF Continued acetaminophen 500 mg tablet 1,000 mg PO ONCE Qty: 2 0RF albuterol sulfate [Ventolin HFA] 90 mcg/actuation HFA aerosol inhaler 2 puff inhalation Q6H PRN (Reason: shortness of breath or wheezing) Qty: 8.5 0RF Discharge Orders: Discharge Order (Routine); Ordered 06/22/23 Ordered By: Richard Aguilera Discharge Diet: Clear Liquid Patient Instructions: Opioid Safety Discharge Attestations Time Spent in Discharge Care*: greater than 30 min Quality Metrics Clinical Quality Measures [ No reported AMI, CVA or VTE this stay] Coding Level of Care Code Acute Code for g Fwd Diagnoses Acute pancreatitis K85.90 Hypertriglyceridemia E78.1 Alcoholism F10.20 Transaminitis R74.01
[2023-06-22] MEDS: thiamine 100 mg Tablet PO (07:48)
[2023-06-22] MEDS: folic acid 1 mg Tablet PO (07:48)
[2023-06-22] MEDS: multivitamin therapeutic Tablet 1 TAB PO (07:49)
[2023-06-22] MEDS: oxyCODONE-APAP 5-325 mg Tablet 1 TAB PO (07:49)
== END 2023-06-22 10:22 | disposition home or self-care (01) | DRG 440 ==
LOC: ER 07:40 → ICU 09:44
PROVIDERS: Admitting Provider Internal Medicine; Emergency Provider Family Medicine; Visit Provider Internal Medicine
DX: K85.20 Alcohol induced acute pancreatitis without necrosis or infection (principal); E78.1 Pure hyperglyceridemia; E86.0 Dehydration; Z79.51 Long term (current) use of inhaled steroids; F10.20 Alcohol dependence, uncomplicated; F17.200 Nicotine dependence, unspecified, uncomplicated
CPT/HCPCS: 36415; 36416; 74018; 74177; 80048; 80053; 80074; 81001; 82962; 83605; 83690; 83721; 83735; 84100; 84443; 84478; 85025; 85610; 96360; 96361; 96372; 96376; 99285; C9113; J1650; J1815; J2060; J2270; J2405; J3411; J3480; J7030; J7050; J7120; Q9967

== ENCOUNTER 2023-06-24 20:13 | Emergency (ER) | payer SELFPAY ==
[2023-06-24 20:36] VITALS: BP 142/92; PULSE 97; RESP 18; TEMP 36.8; O2SAT 100; BMI 21.7
--- NOTE | 2023-06-24 21:32 | W.ED.ABDPA2 ---
Documented by User: Sammy Boyle MD 06/24/23 21:40 HPI - Abdominal Pain General: Chief Complaint: Abdominal Pain Stated Complaint: Eyes turning Yellow Time Seen by Provider: 06/24/23 20:24 Source: patient and family (mother and girlfriend) History of Present Illness: This 28-year-old male who was discharged from the hospital 3 days ago with acute pancreatitis, presents to the ER stating that his sclera and skin have been noticeably jaundiced and his urine has been deep yellow in color. He also complains of the left lower quadrant pain that has worsened. He denies fever, nausea or vomiting. He noted that as at yesterday, the jaundice was worse but today, it slightly better. He appears clinically stable. Associated Symptoms: Denies chills and dysuria Review of Systems Narrative: Jaundice Const: Denies: chills, body aches or change in appetite Eyes: Denies: change in vision or eye discharge ENMT: Denies: throat pain, dental pain or nasal discharge Card: Denies: chest pain or lightheadedness GI: Reports: abdominal pain (LLQ) : Denies: dysuria Musc: Denies: neck pain or back pain Neuro: Denies: headache(s) or weakness in extremities Psych: Denies: depression Asad/Lymph: Denies: easy bruising All/Imm: Denies: urticaria, tongue swelling or facial swelling PFSH ED PFSH: Medical History (Updated 06/25/23 @ 00:45 by Norman Vieyra DO) Acute pancreatitis Alcoholism Hypertriglyceridemia Transaminitis Family History (Updated 06/20/23 @ 09:34 by Mauro Harrell MD) Other Cancer Dementia Social History (Updated 06/20/23 @ 09:34 by Mauro Harrell MD) Smoking and tobacco status: current every day smoker Alcohol intake: current Substance/Drug Use: never Physical Exam Const: COMMON NORMALS: no acute distress, patient oriented x3, no limitations and alert HENMT: COMMON NORMALS: normocephalic HEAD & SCALP: normocephalic Eye: COMMON NORMALS: EOMs intact bilaterally Neck/C-Spine: COMMON NORMALS: full ROM and supple Chest: COMMONS NORMALS: normal inspection of the chest Resp: COMMON NORMALS: normal respiratory effort, No retractions, No use of accessory muscles and clear to auscultation bilaterally AUSCULTATION: clear to auscultation bilaterally Cardio: COMMON NORMALS: regular rate, regular rhythm and No murmurs present (Cardio) RATE: regular rate RHYTHM: regular rhythm GI: COMMON NORMALS: Normal to inspection, nondistended, normoactive bowel sounds present PALPATION: Yes Tenderness to palpation present (GI) Details: LLQ : COMMON NORMALS: Yes no CVA tenderness BLADDER/KIDNEY EXAM: Yes no CVA tenderness Back/Pelvis: COMMON NORMALS: no CVA tenderness and no thoracic nor lumbar tenderness Extremity: GENERAL: Yes normal exam except as noted Neuro: COMMON NORMALS: patient oriented x3 and no focal motor deficits SENSORIUM/ORIENTATION: Yes alert Psych: COMMON NORMALS: mental status grossly normal and cooperative Course Vital Signs: Vital signs: Vital Signs Temperature 98.2 F 06/24/23 20:36 Pulse Rate 84 06/25/23 00:42 Respiratory Rate 16 06/25/23 00:42 Blood Pressure 141/97 06/25/23 00:42 Pulse Oximetry 100 06/25/23 00:42 Oxygen Delivery Me thod Room Air 06/24/23 20:36 MDM - Abdominal Pain Lab Data 06/24/23 21:56 06/24/23 21:56 Labs/Radiology: Radiology Impressions Abdomen/Pelvis CT 06/24/23 21:40 IMPRESSION: Findings of pancreatitis showing some improvement compared with 06/20/2023. Laboratory Results WBC 5.34 10^3/uL (3.29-11.43) 06/24/23 21:56 RBC 3.65 10^6/uL (3.85-5.65) L 06/24/23 21:56 Hgb 12.10 g/dL (11.27-16.99) 06/24/23 21:56 Hct 34.8 % (37-53) L 06/24/23 21:56 MCV 95.3 fl (82-101) 06/24/23 21:56 MCH 33.2 pg (27-33) H 06/24/23 21:56 MCHC 34.8 g/dL (30-55) 06/24/23 21:56 RDW 10.8 % (12.1-15.1) L 06/24/23 21:56 Plt Count 179 10^3/cmm (157-399) 06/24/23 21:56 MPV 9.6 fL (7.4-10.4) 06/24/23 21:56 Neut % (Auto) 53.0 % 06/24/23 21:56 Lymph % (Auto) 27.3 % 06/24/23 21:56 Gregg % (Auto) 15.7 % 06/24/23 21:56 Eos % (Auto) 1.9 % 06/24/23 21:56 Baso % (Auto) 0.6 % 06/24/23 21:56 Neut # (Auto) 2.83 10^3/uL (1.8-7.7) 06/24/23 21:56 Lymph # (Auto) 1.5 10^3/uL (0.8-4.8) 06/24/23 21:56 Gregg # (Auto) 0.8 10^3/uL (0.2-0.9) 06/24/23 21:56 Eos # (Auto) 0.1 10^3/uL (0.0-0.8) 06/24/23 21:56 Baso # (Auto) 0.0 10^3/uL (0.0-0.1) 06/24/23 21:56 Nucleated RBC % (auto) 0 % 06/24/23 21:56 Nucleated RBCs # 0.0 /100WBC 06/24/23 21:56 PT 13.10 SECONDS (12.1-14.9) 06/24/23 21:56 INR 0.96 (0.8-1.2) 06/24/23 21:56 Sodium 138 mmol/L (136-145) 06/24/23 21:56 Potassium 3.2 mmol/L (3.5-5.1) L 06/24/23 21:56 Chloride 99 mmol/L (98-107) 06/24/23 21:56 Carbon Dioxide 29 mmol/L (22-29) 06/24/23 21:56 Anion Gap 13.2 (5-19) 06/24/23 21:56 BUN 6 mg/dL (6-20) 06/24/23 21:56 Creatinine 0.5 mg/dL (0.7-1.2) L 06/24/23 21:56 GFR Calculation 196.6 mL/min (90-130) H 06/24/23 21:56 Glucose 98 mg/dL (65-115) 06/24/23 21:56 Calculated Osmolality 284 mOsm/kg (285-295) L 06/24/23 21:56 Calcium 9.8 mg/dL (8.5-10.5) 06/24/23 21:56 Total Bilirubin 1.9 mg/dL (0.15-1.2) H 06/24/23 21:56 Total Bilirubin 2.0 mg/dL (0.15-1.2) H 06/24/23 21:56 Direct Bilirubin 1.00 mg/dL (0.00-0.30) H 06/24/23 21:56 Indirect Bilirubin 1.00 06/24/23 21:56 AST 89 U/L (0-40) H 06/24/23 21:56 ALT 60 U/L (0-41) H 06/24/23 21:56 Alkaline Phosphatase 201 U/L (40-130) H 06/24/23 21:56 Total Protein 7.7 g/dL (6.6-8.7) 06/24/23 21:56 Albumin 3.9 g/dL (3.5-5.2) 06/24/23 21:56 Globulin 3.8 g/dL (1.3-4.6) 06/24/23 21:56 Urine Color Dark yellow (Yellow) 06/24/23 22:08 Urine Appearance Clear (CLEAR) 06/24/23 22:08 Urine pH 7 (5-7) 06/24/23 22:08 Ur Specific [place] 1.020 (1.005-1.030) 06/24/23 22:08 Urine Protein Neg (Negative) 06/24/23 22:08 Urine Glucose (UA) Norm (Normal) 06/24/23 22:08 Urine Ketones Negative (Negative) 06/24/23 22:08 Urine Blood Neg (Negative) 06/24/23 22:08 Urine Nitrate Negative (Negative) 06/24/23 22:08 Urine Bilirubin 2+ (Negative) H 06/24/23 22:08 Urine Urobilinogen 4+ mg/dL (Negative) H 06/24/23 22:08 Ur Leukocyte Esterase Negative (Negative) 06/24/23 22:08 Discharge Plan Discharge Patient Disposition: Home Clinical Impression: Acute pancreatitis Qualifiers: Pancreatitis type: unspecified pancreatitis type Acute pancreatitis complication: unspecified Qualified Code(s): K85.90 - Acute pancreatitis without necrosis or infection, unspecified Condition: Stable Prescriptions: No Action acetaminophen 500 mg tablet 1,000 mg PO ONCE Qty: 2 0RF albuterol sulfate [Ventolin HFA] 90 mcg/actuation HFA aerosol inhaler 2 puff inhalation Q6H PRN (Reason: shortness of breath or wheezing) Qty: 8.5 0RF oxycodone-acetaminophen 5-325 mg Tablet 1 tab PO Q4H PRN (Reason: Moderate Pain) Qty: 14 0RF folic acid 1 mg Tablet 1 mg PO DAILY Qty: 30 0RF Vitamin B-1 (mononitrate) 100 mg Tablet 100 mg PO DAILY Qty: 30 0RF ondansetron HCl 4 mg tablet 4 mg PO DAILY PRN (Reason: nausea and vomiting) 4 Days Qty: 14 0RF Discharge Orders: Discharge ED (Routine); Ordered 06/25/23 Ordered By: Norman Vieyra Referrals: Katlin Sheppard FNP [Primary Care Provider] - 1 week Patient Instructions: Pancreatitis (ED) Activity Restrictions/Additional Instructions: Follow-up with your primary care practitioner within the next 7 days for further evaluation and testing including lab work. Sign Out Sign Out Data: Sign Out Comment: Patient was discharged from this hospital following an admission for acute pancreatitis. He presents with worsening jaundice and left lower quadrant pain. Labs and CT abdomen/pelvis ordered. Patient care transferred to Dr. Vieyra at end of shift. Last updated by Sammy Boyle MD at 06/24/23 22:51 Coding Level of Care Code ED Clinical Research Spec for Chg Fwd Documented by User: Norman Vieyra, 06/25/23 00:47 HPI - Abdominal Pain General: Chief Complaint: Abdominal Pain Stated Complaint: Eyes turning Yellow Time Seen by Provider: 06/24/23 20:24 PFSH ED PFSH: Medical History (Updated 06/25/23 @ 00:45 by Norman Vieyra DO) Acute pancreatitis Alcoholism Hypertriglyceridemia Transaminitis Family History (Updated 06/20/23 @ 09:34 by Mauro Harrell MD) Other Cancer Dementia Social History (Updated 06/20/23 @ 09:34 by Mauro Harrell MD) Smoking and tobacco status: current every day smoker Alcohol intake: current Substance/Drug Use: never Course Vital Signs: Vital signs: Vital Signs Temperature 98.2 F 06/24/23 20:36 Pulse Rate 84 06/25/23 00:42 Respiratory Rate 16 06/25/23 00:42 Blood Pressure 141/97 06/25/23 00:42 Pulse Oximetry 100 06/25/23 00:42 Oxygen Delivery Me thod Room Air 06/24/23 20:36 MDM - Abdominal Pain Medical Decision Making Patient presents to the ER with worsening jaundice and suspected diagnosis of pancreatitis on Friday. Lab work was obtained as well as CT scan all of which essentially are improving. Patient be discharged home to follow-up with PCP within the next 7 days. Medical Records I reviewed the patient's medical records. Lab Data I reviewed the patient's lab results. 06/24/23 21:56 06/24/23 21:56 Labs/Radiology: Radiology Impressions Abdomen/Pelvis CT 06/24/23 21:40 IMPRESSION: Findings of pancreatitis showing some improvement compared with 06/20/2023. Laboratory Results WBC 5.34 10^3/uL (3.29-11.43) 06/24/23 21:56 RBC 3.65 10^6/uL (3.85-5.65) L 06/24/23 21:56 Hgb 12.10 g/dL (11.27-16.99) 06/24/23 21:56 Hct 34.8 % (37-53) L 06/24/23 21:56 MCV 95.3 fl (82-101) 06/24/23 21:56 MCH 33.2 pg (27-33) H 06/24/23 21:56 MCHC 34.8 g/dL (30-55) 06/24/23 21:56 RDW 10.8 % (12.1-15.1) L 06/24/23 21:56 Plt Count 179 10^3/cmm (157-399) 06/24/23 21:56 MPV 9.6 fL (7.4-10.4) 06/24/23 21:56 Neut % (Auto) 53.0 % 06/24/23 21:56 Lymph % (Auto) 27.3 % 06/24/23 21:56 Gregg % (Auto) 15.7 % 06/24/23 21:56 Eos % (Auto) 1.9 % 06/24/23 21:56 Baso % (Auto) 0.6 % 06/24/23 21:56 Neut # (Auto) 2.83 10^3/uL (1.8-7.7) 06/24/23 21:56 Lymph # (Auto) 1.5 10^3/uL (0.8-4.8) 06/24/23 21:56 Gregg # (Auto) 0.8 10^3/uL (0.2-0.9) 06/24/23 21:56 Eos # (Auto) 0.1 10^3/uL (0.0-0.8) 06/24/23 21:56 Baso # (Auto) 0.0 10^3/uL (0.0-0.1) 06/24/23 21:56 Nucleated RBC % (auto) 0 % 06/24/23 21:56 Nucleated RBCs # 0.0 /100WBC 06/24/23 21:56 PT 13.10 SECONDS (12.1-14.9) 06/24/23 21:56 INR 0.96 (0.8-1.2) 06/24/23 21:56 Sodium 138 mmol/L (136-145) 06/24/23 21:56 Potassium 3.2 mmol/L (3.5-5.1) L 06/24/23 21:56 Chloride 99 mmol/L (98-107) 06/24/23 21:56 Carbon Dioxide 29 mmol/L (22-29) 06/24/23 21:56 Anion Gap 13.2 (5-19) 06/24/23 21:56 BUN 6 mg/dL (6-20) 06/24/23 21:56 Creatinine 0.5 mg/dL (0.7-1.2) L 06/24/23 21:56 GFR Calculation 196.6 mL/min (90-130) H 06/24/23 21:56 Glucose 98 mg/dL (65-115) 06/24/23 21:56 Calculated Osmolality 284 mOsm/kg (285-295) L 06/24/23 21:56 Calcium 9.8 mg/dL (8.5-10.5) 06/24/23 21:56 Total Bilirubin 1.9 mg/dL (0.15-1.2) H 06/24/23 21:56 Total Bilirubin 2.0 mg/dL (0.15-1.2) H 06/24/23 21:56 Direct Bilirubin 1.00 mg/dL (0.00-0.30) H 06/24/23 21:56 Indirect Bilirubin 1.00 06/24/23 21:56 AST 89 U/L (0-40) H 06/24/23 21:56 ALT 60 U/L (0-41) H 06/24/23 21:56 Alkaline Phosphatase 201 U/L (40-130) H 06/24/23 21:56 Total Protein 7.7 g/dL (6.6-8.7) 06/24/23 21:56 Albumin 3.9 g/dL (3.5-5.2) 06/24/23 21:56 Globulin 3.8 g/dL (1.3-4.6) 06/24/23 21:56 Urine Color Dark yellow (Yellow) 06/24/23 22:08 Urine Appearance Clear (CLEAR) 06/24/23 22:08 Urine pH 7 (5-7) 06/24/23 22:08 Ur Specific [place] 1.020 (1.005-1.030) 06/24/23 22:08 Urine Protein Neg (Negative) 06/24/23 22:08 Urine Glucose (UA) Norm (Normal) 06/24/23 22:08 Urine Ketones Negative (Negative) 06/24/23 22:08 Urine Blood Neg (Negative) 06/24/23 22:08 Urine Nitrate Negative (Negative) 06/24/23 22:08 Urine Bilirubin 2+ (Negative) H 06/24/23 22:08 Urine Urobilinogen 4+ mg/dL (Negative) H 06/24/23 22:08 Ur Leukocyte Esterase Negative (Negative) 06/24/23 22:08 Discharge Plan Discharge Patient Disposition: Home Clinical Impression: Acute pancreatitis Qualifiers: Pancreatitis type: unspecified pancreatitis type Acute pancreatitis complication: unspecified Qualified Code(s): K85.90 - Acute pancreatitis without necrosis or infection, unspecified Condition: Stable Prescriptions: No Action acetaminophen 500 mg tablet 1,000 mg PO ONCE Qty: 2 0RF albuterol sulfate [Ventolin HFA] 90 mcg/actuation HFA aerosol inhaler 2 puff inhalation Q6H PRN (Reason: shortness of breath or wheezing) Qty: 8.5 0RF oxycodone-acetaminophen 5-325 mg Tablet 1 tab PO Q4H PRN (Reason: Moderate Pain) Qty: 14 0RF folic acid 1 mg Tablet 1 mg PO DAILY Qty: 30 0RF Vitamin B-1 (mononitrate) 100 mg Tablet 100 mg PO DAILY Qty: 30 0RF ondansetron HCl 4 mg tablet 4 mg PO DAILY PRN (Reason: nausea and vomiting) 4 Days Qty: 14 0RF Discharge Orders: Discharge ED (Routine); Ordered 06/25/23 Ordered By: Norman Vieyra Referrals: Katlin Sheppard FNP [Primary Care Provider] - 1 week Patient Instructions: Pancreatitis (ED) Activity Restrictions/Additional Instructions: Follow-up with your primary care practitioner within the next 7 days for further evaluation and testing including lab work. Sign Out Sign Out Data: Sign Out Comment: Patient was discharged from this hospital following an admission for acute pancreatitis. He presents with worsening jaundice and left lower quadrant pain. Labs and CT abdomen/pelvis ordered. Patient care transferred to Dr. Vieyar at end of shift. Last updated by Sammy Boyle MD at 06/24/23 22:51 Coding Level of Care Code ED Clinical Research Spec for [facility]
--- NOTE | 2023-06-24 21:40 | CTR_ITS ---
PROCEDURE INFORMATION: Exam: CT Abdomen And Pelvis With Contrast Exam date and time: 06/24/2023 10:15 PM Age: 28 years old Clinical indication: Abdominal pain; Localized; Left lower quadrant (llq); Patient HX: Patient was just in icu here last weekend, abdn labs and pancreatitis. Patient says his urine has gotten really dark TECHNIQUE: Imaging protocol: Computed tomography of the abdomen and pelvis with contrast. Radiation optimization: All CT scans at this facility use at least one of these dose optimization techniques: automated exposure control; mA and/or kV adjustment per patient size (includes targeted exams where dose is matched to clinical indication); or iterative reconstruction. Contrast material: OMNI 350; Contrast volume: 80 ml; Contrast route: INTRAVENOUS (IV); REPORTING DATA: Count of CT and Cardiac NM exams in prior 12 months: This patient has received [address] and 0 known cardiac nuclear medicine studies in the 12 months prior to the current study. COMPARISON: CT abdomen pelvis w con* [id number] 06/20/2023 8:56 AM RADIATION DOSE METRICS: Total DLP (mGy-cm): 426.83 FINDINGS: Liver: There is no focal abnormality within the liver. Gallbladder and bile ducts: There is mild diffuse thickening of the gallbladder wall. Gallbladder is not distended. This could be reactive to the pancreatitis. There is no common bile duct dilation. Pancreas: Pancreas enhances uniformly. Spleen: The spleen is normal. Adrenal glands: The adrenal glands are normal. Kidneys and ureters: The kidneys are normal. There is no evidence of hydronephrosis. There is no evidence of renal or ureteral calcifications. Stomach and bowel: There is no evidence of colitis/diverticulitis. There is no evidence of intestinal obstruction. Appendix: Not identified Intraperitoneal space: There is a small amount of ascites within the posterior pelvis. Vasculature: The aorta is normal. There is no evidence of an abdominal aortic aneurysm. Lymph nodes: There are small periaortic lymph nodes but no adenopathy. Urinary bladder: Unremarkable as visualized. Reproductive: Unremarkable as visualized. Bones/joints: Unremarkable. No acute fracture. Soft tissues: There is enlargement of the pancreas diffusely with peripancreatic fluid and some fluid extending along Gerota's fascia on the left consistent with acute pancreatitis. The amount of peripancreatic fluid is decreased compared with 06/20/2023. No drainable fluid collection or pseudocyst is identified. CT/CT abdomen pelvis w con* [id number] IMPRESSION: Findings of pancreatitis showing some improvement compared with 06/20/2023.
[2023-06-24] MEDS: morphine 4 mg/mL SDV 1 mL IVP (21:55)
[2023-06-24 22:03] LABS: Basophils % 0.6 %; Eosinophils # 0.1 10^3/uL (0.0-0.8); Eosinophils % 1.9 %; Hematocrit 34.8 % (37-53); Lymphocytes # 1.5 10^3/uL (0.8-4.8); Lymphocytes % 27.3 %; Mean Corpuscular HGB Conc 34.8 g/dL (30-55); Mean Corpuscular Hemoglobin 33.2 pg (27-33); Mean Corpuscular Volume 95.3 fl (82-101); Mean Platelet Volume 9.6 fL (7.4-10.4); Monocytes # 0.8 10^3/uL (0.2-0.9); Monocytes % 15.7 %; Neutrophils # 2.83 10^3/uL (1.8-7.7); Nucleated Red Blood Cells % 0 %; Platelet Count 179 10^3/cmm (157-399); Red Blood Count 3.65 10^6/uL (3.85-5.65); Red Cell Distribution Width 10.8 % (12.1-15.1); White Blood Count 5.34 10^3/uL (3.29-11.43)
[2023-06-24 22:16] LABS: Add Urine Microscopic? NO; Charge for UA Resulting for Rev
[2023-06-24 22:17] LABS: INR 0.96 (0.8-1.2)
[2023-06-24] MEDS: iohexol 350 mg/mL 500 mL Btl (per mL) IV (22:19)
[2023-06-24 22:25] VITALS: BP 148/100; PULSE 95; RESP 16; O2SAT 96
[2023-06-24 22:28] LABS: Alanine Aminotransferase 60 U/L (0-41); Albumin Level 3.9 g/dL (3.5-5.2); Alkaline Phosphatase 201 U/L (40-130); Anion Gap 13.2 (5-19); Aspartate Amino Transferase 89 U/L (0-40); Blood Urea Nitrogen 6 mg/dL (6-20); Calcium 9.8 mg/dL (8.5-10.5); Carbon Dioxide 29 mmol/L (22-29); Chloride 99 mmol/L (98-107); Globulin 3.8 g/dL (1.3-4.6); Glomerular Filtration Rate 196.6 mL/min (90-130); Glucose 98 mg/dL (65-115); Osmolality Calculated 284 mOsm/kg (285-295); Potassium 3.2 mmol/L (3.5-5.1); Sodium 138 mmol/L (136-145); Total Bilirubin 1.9 mg/dL (0.15-1.2); Total Protein 7.7 g/dL (6.6-8.7)
[2023-06-24 22:31] LABS: Bilirubin Urine 2+ (Negative); Blood Urine Neg (Negative); Glucose Urine UA Norm (Normal); Ketones Urine Negative (Negative); Leukocyte Esterase Urine Negative (Negative); Nitrate Urine Negative (Negative); Protein Urine Neg (Negative); Urine Appearance Clear (CLEAR); Urine Color Dark Yellow (Yellow); Urobilinogen Urine 4+ mg/dL (Negative); pH Urine 7 (5-7)
[2023-06-25] MEDS: morphine 4 mg/mL SDV 1 mL IVP (00:27)
[2023-06-25 00:42] VITALS: BP 141/97; PULSE 84; RESP 16; O2SAT 100
[2023-06-25 00:59] VITALS: BP 141/97; PULSE 84; RESP 16; TEMP 36.8; O2SAT 100
== END 2023-06-25 00:59 | disposition home or self-care (01) ==
PROVIDERS: Emergency Provider Family Medicine; PCP Registered Nurse
DX: K85.90 Acute pancreatitis without necrosis or infection, unspecified (principal); F17.210 Nicotine dependence, cigarettes, uncomplicated
CPT/HCPCS: 36415; 74177; 80053; 81003; 82247; 82248; 85025; 85610; 96374; 96376; 99285; J2270; Q9967

== ENCOUNTER 2023-09-16 11:57 | Emergency (ER) | payer SELFPAY ==
[2023-09-16 12:00] VITALS: BP 159/108; PULSE 116; RESP 18; TEMP 36.8; O2SAT 98; BMI 21.7
--- NOTE | 2023-09-16 13:12 | W.ED.ABDPA2 ---
HPI - Abdominal Pain General: Chief Complaint: Abdominal Pain Stated Complaint: abd pain,dx pancreatitis Time Seen by Provider: 09/16/23 11:59 Source: patient Mode of arrival: ambulatory Limitations: no limitations History of Present Illness: Patient is a nice 28-year-old male who presents to ED today with complaint of upper abdominal pain. Patient states he has a history of pancreatitis related to alcohol use and states his symptoms feel similar. He is not reporting nausea or vomiting. No changes in bowel movements. He states pain started a few days ago and initially progressively worsened but upon arrival states I think I'm over the worst of it . Patient states his last drink was approximately 2 days ago. No fevers. MD elicited complaint: abdominal pain Pertinent past history: other (pancreatitis, chronic alcohol use) Onset (ago): day(s) Pain Consistency: constant Location: Epigastric, LUQ and RUQ Severity: severe Quality: stabbing and sharp Radiation: none Migration to: no migration Exacerbating factors: eating Relieving factors: nothing Context: history of similar episodes Associated Symptoms: Denies change in bowel habits, chills, diarrhea, dysuria, fever(s), hematochezia, melena, nausea and vomiting Review of Systems Const: Denies: fever(s), chills, body aches, fatigue or malaise Card: Denies: chest pain Resp: Denies: dyspnea GI: Reports: abdominal pain; Denies: nausea, vomiting, diarrhea, change in bowel habits, hematochezia or melena : Denies: flank pain, difficulty urinating, dysuria, urinary frequency, urinary urgency or urinary hesitancy Musc: Denies: neck pain, back pain, extremity pain or joint pain Skin/Breast: Denies: rash Neuro: Denies: headache(s), numbness in extremities, weakness in extremities or sensory changes PFSH ED PFSH: Medical History Transaminitis Alcoholism Hypertriglyceridemia Acute pancreatitis Family History Other Cancer Dementia Social History Smoking and tobacco/nicotine status: current every day tobacco/nicotine user Alcohol intake: current Substance/Drug Use: never Physical Exam Const: COMMON NORMALS: no acute distress, average body habitus, patient oriented x3, no limitations, healthy appearing, alert and well nourished GENERAL APPEARANCE: cooperative ORIENTATION/CONSCIOUSNESS: Yes awake, Yes oriented to person, Yes oriented to place and Yes oriented to time Eye: COMMON NORMALS: no scleral icterus Resp: COMMON NORMALS: normal respiratory effort and clear to auscultation bilaterally AUSCULTATION: clear to auscultation bilaterally Cardio: COMMON NORMALS: regular rate and regular rhythm RATE: regular rate RHYTHM: regular rhythm GI: COMMON NORMALS: Normal to inspection, nondistended, normoactive bowel sounds present, Soft to palpation, No hepatosplenomegaly present and no masses INSPECTION: Yes normal to inspection PALPATION: Yes Soft to palpation, Yes Tenderness to palpation present (GI) (throughout upper abdomen), No Guarding due to palpation present (GI), No Rigid due to palpation and Yes No hepatosplenomegaly present Extremity: GENERAL: Yes normal exam except as noted Neuro: DOMINGA COMA SCALE: document GCS findings Dominga coma scale eye opening: Spontaneous Davis coma scale verbal response: Orientated Davis coma scale motor response: Obey commands Dominga coma scale total score: 15 COMMON NORMALS: patient oriented x3, moves all extremities, no focal motor deficits, no sensory deficits noted and gait normal SENSORIUM/ORIENTATION: Yes alert, Yes oriented to person, Yes oriented to place and Yes oriented to time Skin: COMMON NORMALS: no rashes or lesions noted GENERAL SKIN EXAM: no rashes or lesions noted Course Vital Signs: Vital signs: Vital Signs Temperature 98.2 F 09/16/23 12:00 Pulse Rate 116 H 09/16/23 12:00 Respiratory Rate 15 09/16/23 14:03 Blood Pressure 159/108 09/16/23 12:00 Pulse Oximetry 100 09/16/23 14:03 Oxygen Delivery Me thod Room Air 09/16/23 12:00 MDM - Abdominal Pain Medical Decision Making Patient feeling better here with IV fluids/pain/nausea meds. Labs today show a normal tbili. He has minor elevations to his AST and alk phos. Lipase is 85. Patient feels like his pain can be controlled at home thus we will attempt outpatient management. Strict return to ED precautions given. Lab Data 09/16/23 12:58 09/16/23 12:58 Labs/Radiology: Laboratory Results WBC 6.03 10^3/uL (3.29-11.43) 09/16/23 12:58 RBC 4.92 10^6/uL (3.85-5.65) 09/16/23 12:58 Hgb 16.70 g/dL (11.27-16.99) 09/16/23 12:58 Hct 47.1 % (37-53) 09/16/23 12:58 MCV 95.7 fl (82-101) 09/16/23 12:58 MCH 33.9 pg (27-33) H 09/16/23 12:58 MCHC 35.5 g/dL (30-55) 09/16/23 12:58 RDW 11.4 % (12.1-15.1) L 09/16/23 12:58 Plt Count 153 10^3/cmm (157-399) L 09/16/23 12:58 MPV 10.5 fL (7.4-10.4) H 09/16/23 12:58 Neut % (Auto) 74.5 % 09/16/23 12:58 Lymph % (Auto) 19.6 % 09/16/23 12:58 [place] % (Auto) 5.1 % 09/16/23 12:58 Eos % (Auto) 0.3 % 09/16/23 12:58 Baso % (Auto) 0.3 % 09/16/23 12:58 Neut # (Auto) 4.49 10^3/uL (1.8-7.7) 09/16/23 12:58 Lymph # (Auto) 1.2 10^3/uL (0.8-4.8) 09/16/23 12:58 [place] # (Auto) 0.3 10^3/uL (0.2-0.9) 09/16/23 12:58 Eos # (Auto) 0.0 10^3/uL (0.0-0.8) 09/16/23 12:58 Baso # (Auto) 0.0 10^3/uL (0.0-0.1) 09/16/23 12:58 Nucleated RBC % (auto) 0 % 09/16/23 12:58 Nucleated RBCs # 0.0 /100WBC 09/16/23 12:58 Sodium 139 mmol/L (136-145) 09/16/23 12:58 Potassium 4.4 mmol/L (3.5-5.1) 09/16/23 12:58 Chloride 99 mmol/L (98-107) 09/16/23 12:58 Carbon Dioxide 26 mmol/L (22-29) 09/16/23 12:58 Anion Gap 18.4 (5-19) 09/16/23 12:58 BUN 8 mg/dL (6-20) 09/16/23 12:58 Creatinine 0.5 mg/dL (0.7-1.2) L 09/16/23 12:58 GFR Calculation 196.6 mL/min (90-130) H 09/16/23 12:58 Glucose 112 mg/dL (65-115) 09/16/23 12:58 Calculated Osmolality 287 mOsm/kg (285-295) 09/16/23 12:58 Calcium 10.6 mg/dL (8.5-10.5) H 09/16/23 12:58 Total Bilirubin 0.7 mg/dL (0.15-1.2) 09/16/23 12:58 AST 65 U/L (0-40) H 09/16/23 12:58 ALT 40 U/L (0-41) 09/16/23 12:58 Alkaline Phosphatase 190 U/L (40-130) H 09/16/23 12:58 Total Protein 9.2 g/dL (6.6-8.7) H 09/16/23 12:58 Albumin 5.0 g/dL (3.5-5.2) 09/16/23 12:58 Globulin 4.2 g/dL (1.3-4.6) 09/16/23 12:58 Lipase 85 U/L (13-60) H 09/16/23 12:58 No radiology studies performed this visit Discharge Plan Discharge Patient Disposition: Home Clinical Impression: Pancreatitis Qualifiers: Chronicity: acute Pancreatitis type: alcohol induced Acute pancreatitis complication: no infection or necrosis Qualified Code(s): K85.20 - Alcohol induced acute pancreatitis without necrosis or infection Condition: Stable Prescriptions: New hydrocodone-acetaminophen 5-325 mg tablet 1 tab PO Q4H PRN (Reason: pain) Qty: 15 0RF ondansetron 4 mg tablet,disintegrating 4 mg PO Q8H PRN (Reason: nausea and vomiting) Qty: 14 0RF Discharge Orders: Discharge ED (Routine); Ordered 09/16/23 Ordered By: Jasmin Nielson Referrals: Katlin Sheppard FNP [Primary Care Provider] - Patient Instructions: Pancreatitis Activity Restrictions/Additional Instructions: As we discussed I want you to do a clear liquid diet over the next 48 hours. From there you can slowly advance to soft foods and then slowly work up to a normal diet as tolerated. As we discussed you need to return to the emergency department for worsening abdominal pain, repeated episodes of nausea/vomiting, fevers, feeling worse or unwell, or any other concerns you may have. I hope you begin to feel better soon. As we discussed I would like to strongly urge you to consider placement into a rehabilitation facility for alcohol abuse or utilize counseling. Coding Level of Care Code ED Boarding Specialist for [facility]
[2023-09-16 13:15] LABS: Basophils % 0.3 %; Eosinophils % 0.3 %; Hematocrit 47.1 % (37-53); Lymphocytes # 1.2 10^3/uL (0.8-4.8); Lymphocytes % 19.6 %; Mean Corpuscular HGB Conc 35.5 g/dL (30-55); Mean Corpuscular Hemoglobin 33.9 pg (27-33); Mean Corpuscular Volume 95.7 fl (82-101); Mean Platelet Volume 10.5 fL (7.4-10.4); Monocytes # 0.3 10^3/uL (0.2-0.9); Monocytes % 5.1 %; Neutrophils # 4.49 10^3/uL (1.8-7.7); Neutrophils % 74.5 %; Nucleated Red Blood Cells % 0 %; Platelet Count 153 10^3/cmm (157-399); Red Blood Count 4.92 10^6/uL (3.85-5.65); Red Cell Distribution Width 11.4 % (12.1-15.1); White Blood Count 6.03 10^3/uL (3.29-11.43)
[2023-09-16 13:26] LABS: Alkaline Phosphatase 190 U/L (40-130); Blood Urea Nitrogen 8 mg/dL (6-20); Calcium 10.6 mg/dL (8.5-10.5); Carbon Dioxide 26 mmol/L (22-29); Chloride 99 mmol/L (98-107); Globulin 4.2 g/dL (1.3-4.6); Glomerular Filtration Rate 196.6 mL/min (90-130); Glucose 112 mg/dL (65-115); Lipase 85 U/L (13-60); Osmolality Calculated 287 mOsm/kg (285-295); Sodium 139 mmol/L (136-145); Total Bilirubin 0.7 mg/dL (0.15-1.2); Total Protein 9.2 g/dL (6.6-8.7)
[2023-09-16 13:27] LABS: Alanine Aminotransferase 40 U/L (0-41); Anion Gap 18.4 (5-19); Aspartate Amino Transferase 65 U/L (0-40); Potassium 4.4 mmol/L (3.5-5.1)
[2023-09-16] MEDS: ondansetron 2 mg/ML SDV 2 mL 4 MG IVP (13:28)
[2023-09-16 13:29] VITALS: RESP 14; O2SAT 98
[2023-09-16] MEDS: HYDROmorphone 1 mg/mL INJ 1 mL IVP (13:29)
[2023-09-16] MEDS: sodium chloride 0.9% 1,000 ML 999 ML IV (13:31)
[2023-09-16 14:03] VITALS: RESP 15; O2SAT 100
[2023-09-16] MEDS: fentaNYL 50 mcg/mL INJ 2mL IVP (14:03)
[2023-09-16] MEDS: lidocaine 2% viscous 15 ML, aluminum-mag hydrox-simethicon 30 ML, sucralfate oral liq 1 GM PO (14:03)
[2023-09-16 14:53] VITALS: BP 157/108; PULSE 75; O2SAT 97
== END 2023-09-16 14:57 | disposition home or self-care (01) ==
PROVIDERS: Emergency Medicine; Emergency Provider Physician Assistant; PCP Registered Nurse
DX: K85.20 Alcohol induced acute pancreatitis without necrosis or infection (principal); Z72.0 Tobacco use
CPT/HCPCS: 80053; 83690; 85025; 96374; 96375; 99284; J1170; J2405; J3010; J7030

== ENCOUNTER 2023-11-24 14:05 | Inpatient (IN) | payer MEDICAID, SELFPAY ==
[2023-11-24] VITALS (42 sets, daily range): BP systolic 136–152; BP diastolic 93–107; PULSE 62–93; RESP 0–25; TEMP 36.3; O2SAT 95–98; BMI 21.7
--- NOTE | 2023-11-24 14:16 | ED_ITS ---
HPI - Abdominal Pain 2 General: Chief Complaint: Abdominal Pain Stated Complaint: abd pain Time Seen by Provider: 11/24/23 14:10 Source: patient Mode of arrival: ambulatory Limitations: no limitations History of Present Illness: 28-year-old male who states that he has a history of pancreatitis from alcohol states he has been drinking he has been having abdominal pain is worsened since this morning states is epigastric in nature he rates it a 9 out of 10 he had nausea and vomiting as well he denies any fever denies any diarrhea. Associated Symptoms: Reports nausea and vomiting; Denies chills, diarrhea, dysuria and fever(s) Review of Systems 2 Const: Denies: fever(s), chills, body aches or change in appetite ENMT: Denies: throat pain or dental pain Card: Denies: chest pain Resp: Denies: dyspnea GI: Reports: abdominal pain, nausea and vomiting; Denies: diarrhea : Denies: dysuria Musc: Denies: neck pain or back pain Skin/Breast: Denies: rash Neuro: Denies: headache(s) PFSH ED 2 PFSH: Medical History Transaminitis Alcoholism Hypertriglyceridemia Acute pancreatitis Family History Other Cancer Dementia Social History Smoking and tobacco/nicotine status: current every day tobacco/nicotine user Alcohol intake: current Substance/Drug Use: never Physical Exam 2 Const: COMMON NORMALS: no acute distress, patient oriented x3 and healthy appearing HENMT: COMMON NORMALS: normocephalic and atraumatic HEAD & SCALP: n ormocephalic and atraumatic Neck/C-Spine: COMMON NORMALS: full ROM and supple Chest: COMMONS NORMALS: normal inspection of the chest Resp: COMMON NORMALS: normal respiratory effort, No retractions, No use of accessory muscles and clear to auscultation bilaterally AUSCULTATION: clear to auscultation bilaterally Cardio: COMMON NORMALS: regular rate, regular rhythm and No murmurs present (Cardio) RATE: regular rate RHYTHM: regular rhythm GI: COMMON NORMALS: Normal to inspection, nondistended, normoactive bowel sounds present, Soft to palpation and no masses PALPATION: Yes Soft to palpation OTHER: epigastric tenderness Extremity: COMMON NORMALS: normal to inspection and full ROM Neuro: COMMON NORMALS: patient oriented x3, moves all extremities and no focal motor deficits Psych: COMMON NORMALS: mental status grossly normal, Normal thought process present and cooperative THOUGHT PROCESS: Normal thought process present Skin: COMMON NORMALS: no rashes or lesions noted and no wounds GENERAL SKIN EXAM: no rashes or lesions noted Course 2 Vital Signs: Vital signs: Vital Signs Temperature 97.4 F L 11/24/23 14:09 Pulse Rate 80 11/24/23 14:09 Respiratory Rate 15 11/24/23 14:36 Blood Pressure 142/94 11/24/23 14:09 Pulse Oximetry 97 11/24/23 14:09 Oxygen Delivery Me thod Room Air 11/24/23 14:09 MDM - Abdominal Pain Medical Decision Making Patient presents with pancreatitis seen on CT with a mildly elevated lipase. States he continues to have pain and nausea I did speak to the hospitalist will admit for observation. Medical Records I reviewed the patient's medical records. Lab Data I reviewed the patient's lab results. 11/24/23 14:17 11/24/23 14:17 Labs/Radiology: Laboratory Results WBC 5.11 10^3/uL (3.29-11.43) 11/24/23 14:17 RBC 4.27 10^6/uL (3.85-5.65) 11/24/23 14:17 Hgb 14.90 g/dL (11.27-16.99) 11/24/23 14:17 Hct 40.8 % (37-53) 11/24/23 14:17 MCV 95.6 fl (82-101) 11/24/23 14:17 MCH 34.9 pg (27-33) H 11/24/23 14:17 MCHC 36.5 g/dL (30-55) 11/24/23 14:17 RDW 11.9 % (12.1-15.1) L 11/24/23 14:17 Plt Count 228 10^3/cmm (157-399) 11/24/23 14:17 MPV 9.3 fL (7.4-10.4) 11/24/23 14:17 Neut % (Auto) 68.8 % 11/24/23 14:17 Lymph % (Auto) 23.5 % 11/24/23 14:17 [place] % (Auto) 6.5 % 11/24/23 14:17 Eos % (Auto) 0.2 % 11/24/23 14:17 Baso % (Auto) 0.8 % 11/24/23 14:17 Neut # (Auto) 3.52 10^3/uL (1.8-7.7) 11/24/23 14:17 Lymph # (Auto) 1.2 10^3/uL (0.8-4.8) 11/24/23 14:17 [place] # (Auto) 0.3 10^3/uL (0.2-0.9) 11/24/23 14:17 Eos # (Auto) 0.0 10^3/uL (0.0-0.8) 11/24/23 14:17 Baso # (Auto) 0.0 10^3/uL (0.0-0.1) 11/24/23 14:17 Nucleated RBC % (auto) 0 % 11/24/23 14:17 Nucleated RBCs # 0.0 /100WBC 11/24/23 14:17 Sodium 136 mmol/L (136-145) 11/24/23 14:17 Potassium 4.1 mmol/L (3.5-5.1) 11/24/23 14:17 Chloride 96 mmol/L (98-107) L 11/24/23 14:17 Carbon Dioxide 25 mmol/L (22-29) 11/24/23 14:17 Anion Gap 19.1 (5-19) H 11/24/23 14:17 BUN 18 mg/dL (6-20) 11/24/23 14:17 Creatinine 0.7 mg/dL (0.7-1.2) 11/24/23 14:17 GFR Calculation 133.3 mL/min (90-130) H 11/24/23 14:17 Glucose 148 mg/dL (65-115) H 11/24/23 14:17 Calculated Osmolality 287 mOsm/kg (285-295) 11/24/23 14:17 Calcium 9.1 mg/dL (8.5-10.5) 11/24/23 14:17 Total Bilirubin 1.0 mg/dL (0.15-1.2) 11/24/23 14:17 AST 293 U/L (0-40) H 11/24/23 14:17 ALT 114 U/L (0-41) H 11/24/23 14:17 Alkaline Phosphatase 213 U/L (40-130) H 11/24/23 14:17 Total Protein 8.5 g/dL (6.6-8.7) 11/24/23 14:17 Albumin 4.4 g/dL (3.5-5.2) 11/24/23 14:17 Globulin 4.1 g/dL (1.3-4.6) 11/24/23 14:17 Lipase 165 U/L (13-60) H 11/24/23 14:17 All radiology interpretation(s) finalized by discharge Discharge Plan Discharge Patient Disposition: Admitted As Inpatient Clinical Impression: Pancreatitis Condition: Stable Prescriptions: No Action No Known Home Medications Referrals: Katlin Sheppard FNP [Primary Care Provider] - Coding Level of Care Code ED Deputy Coroner for Agueda Nation
[2023-11-24 14:26] LABS: Basophils % 0.8 %; Eosinophils % 0.2 %; Hematocrit 40.8 % (37-53); Lymphocytes # 1.2 10^3/uL (0.8-4.8); Lymphocytes % 23.5 %; Mean Corpuscular HGB Conc 36.5 g/dL (30-55); Mean Corpuscular Hemoglobin 34.9 pg (27-33); Mean Corpuscular Volume 95.6 fl (82-101); Mean Platelet Volume 9.3 fL (7.4-10.4); Monocytes # 0.3 10^3/uL (0.2-0.9); Monocytes % 6.5 %; Neutrophils # 3.52 10^3/uL (1.8-7.7); Neutrophils % 68.8 %; Nucleated Red Blood Cells % 0 %; Platelet Count 228 10^3/cmm (157-399); Red Blood Count 4.27 10^6/uL (3.85-5.65); Red Cell Distribution Width 11.9 % (12.1-15.1); White Blood Count 5.11 10^3/uL (3.29-11.43)
[2023-11-24] MEDS: sodium chloride 0.9% 1,000 ML 999 ML IV (14:32)
[2023-11-24] MEDS: ondansetron 2 mg/ML SDV 2 mL 4 MG IVP (14:34)
[2023-11-24] MEDS: HYDROmorphone 1 mg/mL INJ 1 mL IVP (14:36)
[2023-11-24 14:40] LABS: Alanine Aminotransferase 114 U/L (0-41); Albumin Level 4.4 g/dL (3.5-5.2); Alkaline Phosphatase 213 U/L (40-130); Anion Gap 19.1 (5-19); Aspartate Amino Transferase 293 U/L (0-40); Blood Urea Nitrogen 18 mg/dL (6-20); Calcium 9.1 mg/dL (8.5-10.5); Carbon Dioxide 25 mmol/L (22-29); Chloride 96 mmol/L (98-107); Globulin 4.1 g/dL (1.3-4.6); Glomerular Filtration Rate 133.3 mL/min (90-130); Glucose 148 mg/dL (65-115); Lipase 165 U/L (13-60); Osmolality Calculated 287 mOsm/kg (285-295); Potassium 4.1 mmol/L (3.5-5.1); Sodium 136 mmol/L (136-145); Total Protein 8.5 g/dL (6.6-8.7)
--- NOTE | 2023-11-24 14:44 | CT_ITS ---
WS: [id number] CT ABDOMEN AND PELVIS WITH CONTRAST HISTORY: abd pain, history of pancreatitis. TECHNIQUE: Imaging performed of the abdomen and pelvis with IV contrast. Single phase imaging of the abdomen. Coronal and sagittal reformats are submitted. All CT scans at [facility] use at [facility] st one of these dose optimization techniques: automated exposure control; mA and/or kV adjustment per patient size (includes targeted exams where dose is matched to clinical indication); or iterative re construction. IV CONTRAST: Omnipaque 350; 100 mL IV. Oral contrast: No DLP: 422.63 mGy.cm COMPARISON: 06/24/2023 Lower thorax: Lung bases are clear. Heart is normal size. No hiatal hernia. Liver/biliary system: Enlarged liver. No bile duct dilatation or mass. Gallbladder: Mildly hydropic gallbladder. There is mild wall thickening and a small amount of adjacen t fluid. Pancreas: Pancreas is abnormal. There is enlargement and heterogeneity involving the head, uncinate p rocess and neck of the pancreas with extension into the body. This is most consistent with acute panc reatitis. There is mild variable enhancement but there is no hemorrhage or necrosis at this time. Sim ilar findings were present on 06/24/2023. The acute pancreatitis is not as advanced as on the prior [facility]. Peripancreatic edema but no pseudocyst. The edema extends to involve the duodenum and the adjace nt gallbladder. Spleen: Normal size spleen. No mass or infarct. Adrenal glands: Normal. Right kidney: Normal. Left kidney: Normal. Aorta: Normal. Lymphadenopathy: None. Free fluid: There is free fluid surrounding the pancreas and the duodenum and extending into the mese ntery and along the RIGHT pararenal fascia. GI tract: Normal stomach. Mild hyperemia and wall thickening of the duodenal C-loop. No small bowel o bstruction. No colon obstruction. Appendix not identified.. Abdominal wall: Unremarkable abdominal wall. No hernia. Pelvis: No free fluid or adenopathy within the pelvis. Bones: Unremarkable. IMPRESSION: 1. Moderate acute pancreatitis. There is a large amount of fluid surrounding the pancreas and extend ing to involve the duodenum and the adjacent gallbladder. No necrosis or hemorrhagic pancreatitis. Si milar findings were present on the prior study of 06/24/2023 but there has been moderate improvement. 2. No pseudocyst. 3. No bile duct dilatation.
[2023-11-24] MEDS: iohexol 350 mg/mL 500 mL Btl (per mL) IV (14:55)
--- NOTE | 2023-11-24 16:26 | P.HP_ITS ---
Providers/Chief Complaint 2 Primary Care Provider: LAZARO Le Chief Complaint: abd pain History of Present Illness Patrick Gracia is a 28 year old male present to the hospital for worsening abdominal pain with recurrent vomiting. Patient stating that he drinks 6-8 shots of whiskey every day, he had a lot of alcohol at [employer], his symptoms started last night he is in excruciating pain that prompted his visit to the ER. He has been diagnosed with hypertriglyceridemia induced pancreatitis. He will go to ICU with insulin. He will stay n.p.o. on insulin drip, D5 LR with Accu- Cheks every hour. No fever will check drug screen. Will keep him n.p.o. Review of Systems 2 Const: Denies: fever(s) Eyes: Denies: change in vision ENMT: Denies: throat pain Card: Denies: chest pain Resp: Denies: dyspnea GI: Reports: abdominal pain, nausea and vomiting : Denies: flank pain Medications/Allergies Home Medications Medication Instructions Recorded Confirmed Last Taken Type No Known Home Medications 11/24/23 11/24/23 Unknown History Allergies Allergy/AdvReac Type Severity Reaction Status Date / Time No Known Allergies Allergy Verified 11/24/23 14:09 PFSH Acute 2 PFSH: Medical History (Updated 11/24/23 @ 18:45 by Richard Aguilera MD) Hypertriglyceridemia Transaminitis Alcoholism Acute pancreatitis Family History Other Cancer Dementia Social History Smoking and tobacco/nicotine status: current every day tobacco/nicotine user Alcohol intake: current Substance/Drug Use: never Vitals/I&O/Wt Last Vital Signs Temp 97.4 F L 11/24/23 14:09 Pulse 68 11/24/23 14:43 Resp 13 11/24/23 14:43 BP 150/107 11/24/23 14:43 Pulse Ox 97 11/24/23 14:43 O2 Del Method Room Air 11/24/23 14:09 11/24/23 11/24/23 11/24/23 06:59 14:59 22:59 Intake Total 1000 / 1000 Balance 1000 / 1000 Weight last 48 hrs Weight 74.843 kg Physical Exam 2 Narrative: Pleasant young male Laying supine Complaining of epigastric pain GCS 15 Looks dehydrated Sinus rhythm Currently on room air Hypertensive related pain Data 11/24/23 14:17 11/24/23 14:17 A&P Assessment and plan (1) Pancreatitis: (2) Hypertriglyceridemia: Plan Hypertriglyceridemia induced pancreatitis N.p.o. D5 LR at 100 mill per hour Accu-Cheks every hour Start insulin at 0.5 international units/kg/h If he becomes hypoglycemic we can run insulin at lower rate Patient is full code Never had any withdrawal symptoms Will keep him on thiamine folic acid and Ativan on as-needed basis Hypotension is related to his abdominal pain No sign of pseudocyst No sign of necrotic pancreas Alcohol use CIWA protocol along thiamine and folic acid Attestations 2 Medical Necessity Statement*: Admit to ICU for insulin Diagnoses Pancreatitis K85.90 Hypertriglyceridemia E78.1
[2023-11-24 17:09] LABS: Triglycerides 1396 mg/dL (0-150)
[2023-11-24 17:21] LABS: LDL Cholesterol Direct 19 mg/dL (0-100)
[2023-11-24] MEDS: HYDROmorphone 1 mg/mL INJ 1 mL 0.4 MG IVP ×2 (17:23→22:00)
[2023-11-24] MEDS: enoxaparin 40 mg/0.4 mL Syringe SUBCUT (17:23)
[2023-11-24] MEDS: pantoprazole 40 mg SDV IVP (17:23)
[2023-11-24] MEDS: dextrose 5%-lactated ringers 1,000 ML 100 ML IV (17:23)
[2023-11-24 17:32] LABS: Amphetamines Screen Urine Negative (Negative); Barbiturates Screen Urine Negative (Negative); Benzodiazepines Screen Urine Negative (Negative); Cocaine Screen Urine Negative (Negative); Opiate Screen Urine Positive (Negative); PCP Screen Urine Negative (Negative); THC Screen Urine Positive (Negative)
[2023-11-24] MEDS: morphine IR 15 mg Tablet PO (18:35)
[2023-11-24 19:34] LABS: Triglycerides 1279 mg/dL (0-150)
[2023-11-24 20:22] LABS: Glucose Point of Care 136 mg/dL (70-110)
[2023-11-24 20:43] LABS: LDL Cholesterol Direct 21 mg/dL (0-100)
[2023-11-24 20:47] LABS: Glucose Point of Care 117 mg/dL (70-110)
--- NOTE | 2023-11-24 21:37 | PC.NURSE ---
Transfer to ICU: At shift change pt was to be transferred to ICU to start an insulin drip. Report already called by the day shift nurse.
[2023-11-24] MEDS: insulin regular-human 250 UNIT in sodium chloride 0.9% 250 ML 5.05 UNIT IV (21:45)
[2023-11-24 22:06] LABS: Glucose Point of Care 127 mg/dL (70-110)
[2023-11-24] MEDS: ketorolac 30 mg/mL INJ IVP (22:38)
[2023-11-24 23:03] LABS: Glucose Point of Care 103 mg/dL (70-110)
[2023-11-25] VITALS (88 sets, daily range): BP systolic 120–152; BP diastolic 83–105; PULSE 62–93; RESP 10–29; TEMP 36.8–37.2; O2SAT 92–98
[2023-11-25 00:04] LABS: Glucose Point of Care 80 mg/dL (70-110)
[2023-11-25] MEDS: dextrose 10% 1,000 ML 50 ML IV (00:19)
[2023-11-25] MEDS: HYDROmorphone 1 mg/mL INJ 1 mL IVP ×3 (00:19→08:56)
[2023-11-25 00:43] LABS: Estmated Average Glucose 97
[2023-11-25 01:14] LABS: Glucose Point of Care 91 mg/dL (70-110)
[2023-11-25] MEDS: dextrose 5%-lactated ringers 1,000 ML 150 ML IV (01:45)
[2023-11-25 02:02] LABS: Glucose Point of Care 84 mg/dL (70-110)
[2023-11-25 03:03] LABS: Glucose Point of Care 79 mg/dL (70-110)
[2023-11-25] MEDS: morphine IR 15 mg Tablet PO ×2 (04:10→12:00)
[2023-11-25 04:18] LABS: Glucose Point of Care 77 mg/dL (70-110)
[2023-11-25 05:14] LABS: Glucose Point of Care 71 mg/dL (70-110)
[2023-11-25 05:22] LABS: Basophils % 0.1 %; Eosinophils % 0.1 %; Hematocrit 37.6 % (37-53); Lymphocytes # 0.7 10^3/uL (0.8-4.8); Lymphocytes % 10.1 %; Mean Corpuscular HGB Conc 36.2 g/dL (30-55); Mean Corpuscular Hemoglobin 34.5 pg (27-33); Mean Corpuscular Volume 95.4 fl (82-101); Mean Platelet Volume 9.6 fL (7.4-10.4); Monocytes # 0.4 10^3/uL (0.2-0.9); Monocytes % 5.7 %; Neutrophils # 5.99 10^3/uL (1.8-7.7); Neutrophils % 83.7 %; Nucleated Red Blood Cells % 0 %; Platelet Count 169 10^3/cmm (157-399); Red Blood Count 3.94 10^6/uL (3.85-5.65); Red Cell Distribution Width 11.9 % (12.1-15.1); White Blood Count 7.16 10^3/uL (3.29-11.43)
--- NOTE | 2023-11-25 05:23 | PC.NURSE ---
Hospitalist notified of concerns over starting insulin dose rate of 37.5 per mar. Hospitalist ordered starting rate of 5 units and increased D5LR.
[2023-11-25 05:48] LABS: Alanine Aminotransferase 83 U/L (0-41); Albumin Level 3.8 g/dL (3.5-5.2); Alkaline Phosphatase 174 U/L (40-130); Blood Urea Nitrogen 10 mg/dL (6-20); C Reactive Protein 10.1 mg/L (0.0-4.9); Carbon Dioxide 27 mmol/L (22-29); Chloride 98 mmol/L (98-107); Globulin 3.5 g/dL (1.3-4.6); Glomerular Filtration Rate 159.3 mL/min (90-130); Glucose 67 mg/dL (65-115); Magnesium 1.8 mg/dL (1.7-2.3); Osmolality Calculated 281 mOsm/kg (285-295); Sodium 137 mmol/L (136-145); Total Bilirubin 1.6 mg/dL (0.15-1.2); Total Protein 7.3 g/dL (6.6-8.7)
[2023-11-25 05:49] LABS: Anion Gap 15.5 (5-19); Aspartate Amino Transferase 185 U/L (0-40); Potassium 3.5 mmol/L (3.5-5.1)
--- NOTE | 2023-11-25 05:53 | PC.NURSE ---
Hospitalist notified of dropping BG and orders received to adjust D10. BG dropped to 71 @ 0500. Order to pause insulin and increase D10 to 175mls/hr and hold D5LR. BG returned to 116 and Insulin restarted.
[2023-11-25 05:55] LABS: Triglycerides 505 mg/dL (0-150)
[2023-11-25 06:01] LABS: Glucose Point of Care 116 mg/dL (70-110)
[2023-11-25 06:08] LABS: LDL Cholesterol Direct 37 mg/dL (0-100)
[2023-11-25 07:07] LABS: Glucose Point of Care 99 mg/dL (70-110)
[2023-11-25] MEDS: ketorolac 30 mg/mL INJ IVP (07:12)
[2023-11-25] MEDS: pantoprazole 40 mg SDV IVP (08:57)
--- NOTE | 2023-11-25 10:54 | PM.DCS ---
Discharge Providers Date of Admission: 11/24/23 15:32 Date of Discharge: November 25, 2023 Attending Provider at Admission: Richard Aguilera MD Attending Provider at Discharge: Richard Aguilera MD Primary Care Provider: LAZARO Le Diagnoses at Discharge Discharge Diagnosis (1) Pancreatitis: Status: Acute (2) Hypertriglyceridemia: Status: Acute Reason for Visit Reason for Visit: abd pain Hospital Course Hospital Course 28 male with history of alcohol abuse, presented with pancreatitis he was diagnosed with hypertriglyceridemia, I started him on insulin drip because hyperglycemia we had to use very low concentration,, his triglyceride improved from 1300-to 500 within 24 hours, patient did not experience any withdrawal symptoms of alcohol, lipase 165, 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 Abnormal transaminases: Improving no active emesis, I will discharge him home with counseling to avoid alcohol Physical Exam Narrative: Awake and alert Signs of dehydration improving abdomen soft midepigastric tenderness GCS 15 nonfocal neuroexam S1, S2 Discharge Data Studies Completed and Pending Completed Studies During Hospitalization Category Date Time Status CT abdomen pelvis w con* [id number] Stat Cat Scan 11/24/23 14:44 Completed Pending at discharge Category Date Time Status Triglycerides Q12H Lab 11/25/23 18:27 Ordered Triglycerides Q12H Lab 11/26/23 06:27 Ordered Laboratory Results WBC 7.16 10^3/uL (3.29-11.43) 11/25/23 05:09 RBC 3.94 10^6/uL (3.85-5.65) 11/25/23 05:09 Hgb 13.60 g/dL (11.27-16.99) 11/25/23 05:09 Hct 37.6 % (37-53) 11/25/23 05:09 MCV 95.4 fl (82-101) 11/25/23 05:09 MCH 34.5 pg (27-33) H 11/25/23 05:09 MCHC 36.2 g/dL (30-55) 11/25/23 05:09 RDW 11.9 % (12.1-15.1) L 11/25/23 05:09 Plt Count 169 10^3/cmm (157-399) 11/25/23 05:09 MPV 9.6 fL (7.4-10.4) 11/25/23 05:09 Neut % (Auto) 83.7 % 11/25/23 05:09 Lymph % (Auto) 10.1 % 11/25/23 05:09 [place] % (Auto) 5.7 % 11/25/23 05:09 Eos % (Auto) 0.1 % 11/25/23 05:09 Baso % (Auto) 0.1 % 11/25/23 05:09 Neut # (Auto) 5.99 10^3/uL (1.8-7.7) 11/25/23 05:09 Lymph # (Auto) 0.7 10^3/uL (0.8-4.8) L 11/25/23 05:09 [place] # (Auto) 0.4 10^3/uL (0.2-0.9) 11/25/23 05:09 Eos # (Auto) 0.0 10^3/uL (0.0-0.8) 11/25/23 05:09 Baso # (Auto) 0.0 10^3/uL (0.0-0.1) 11/25/23 05:09 Nucleated RBC % (auto) 0 % 11/25/23 05:09 Nucleated RBCs # 0.0 /100WBC 11/25/23 05:09 Sodium 137 mmol/L (136-145) 11/25/23 05:09 Potassium 3.5 mmol/L (3.5-5.1) 11/25/23 05:09 Chloride 98 mmol/L (98-107) 11/25/23 05:09 Carbon Dioxide 27 mmol/L (22-29) 11/25/23 05:09 Anion Gap 15.5 (5-19) 11/25/23 05:09 BUN 10 mg/dL (6-20) 11/25/23 05:09 Creatinine 0.6 mg/dL (0.7-1.2) L 11/25/23 05:09 GFR Calculation 159.3 mL/min (90-130) H 11/25/23 05:09 Glucose 67 mg/dL (65-115) 11/25/23 05:09 POC Glucose 99 mg/dL (70-110) 11/25/23 07:00 Estimat Average Glucose 97 11/24/23 14:17 Hemoglobin A1c 5.0 % (4.0-6.0) 11/24/23 14:17 Calculated Osmolality 281 mOsm/kg (285-295) L 11/25/23 05:09 Calcium 9.0 mg/dL (8.5-10.5) 11/25/23 05:09 Magnesium 1.8 mg/dL (1.7-2.3) 11/25/23 05:09 Total Bilirubin 1.6 mg/dL (0.15-1.2) H 11/25/23 05:09 AST 185 U/L (0-40) H 11/25/23 05:09 ALT 83 U/L (0-41) H 11/25/23 05:09 Alkaline Phosphatase 174 U/L (40-130) H 11/25/23 05:09 C-Reactive Protein 10.1 mg/L (0.0-4.9) H 11/25/23 05:09 Total Protein 7.3 g/dL (6.6-8.7) 11/25/23 05:09 Albumin 3.8 g/dL (3.5-5.2) 11/25/23 05:09 Globulin 3.5 g/dL (1.3-4.6) 11/25/23 05:09 Triglycerides 505 mg/dL (0-150) H 11/25/23 05:09 LDL Cholesterol Direct 37 mg/dL (0-100) 11/25/23 05:09 Lipase 165 U/L (13-60) H 11/24/23 14:17 Urine Opiates Screen Positive ng/mL (Negative) H 11/24/23 17:06 Ur Barbiturates Screen Negative ng/mL (Negative) 11/24/23 17:06 Ur Phencyclidine Scrn Negative ng/mL (Negative) 11/24/23 17:06 Ur Amphetamines Screen Negative ng/mL (Negative) 11/24/23 17:06 U Benzodiazepines Scrn Negative ng/mL (Negative) 11/24/23 17:06 Urine Cocaine Screen Negative ng/mL (Negative) 11/24/23 17:06 U Marijuana (THC) Screen Positive ng/mL (Negative) H 11/24/23 17:06 Vitals Last Vital Signs Temp 99 F 11/25/23 01:10 Pulse 77 11/25/23 10:00 Resp 18 11/25/23 10:00 BP 134/93 11/25/23 06:05 Pulse Ox 96 11/25/23 10:00 O2 Del Method Room Air 11/25/23 10:00 Discharge Plan Discharge Patient Disposition: Home Condition: Stable Prescriptions: New oxycodone-acetaminophen 5-325 mg tablet 1 tab PO Q8H PRN (Reason: pain) Qty: 10 0RF fenofibrate 150 mg capsule 150 mg PO DAILY Qty: 30 0RF Discharge Orders: Discharge Order (Routine); Ordered 11/25/23 Ordered By: Richard Aguilera Referrals: Katlin Sheppard FNP [Primary Care Provider] - Patient Instructions: Opioid Safety Activity Restrictions/Additional Instructions: Please avoid alcohol this will be considered very toxic for your pancreas and liver I am giving you pain medications please use it only as needed because they can cause severe constipation High triglyceride you can use fenofibrate and discussed with the primary care doctor if you need to continue I do believe this is related to alcohol abuse. To avoid worsening abdominal pain keep yourself on clear liquid diet for next 2 days and gradually advance her diet in next 10 days Discharge Attestations Time Spent in Discharge Care*: greater than 30 min Quality Metrics Clinical Quality Measures [ No reported AMI, CVA or VTE this stay] Coding Level of Care Code Acute Code for Chg Fwd Diagnoses Pancreatitis K85.90 Hypertriglyceridemia E78.1
[2023-11-25 12:03] LABS: Glucose Point of Care 92 mg/dL (70-110)
[2023-11-25 12:03] LABS: Glucose Point of Care 79 mg/dL (70-110)
[2023-11-25 12:14] LABS: Glucose Point of Care 104 mg/dL (70-110)
--- NOTE | 2023-11-25 12:20 | PC.NURSE ---
Pt's IV sites removed. Catheter tip intact. Pt tolerated well. Pt states pain level remains high but has not worsened since arrival. Discharge instructions given. Pt denies questions.
== END 2023-11-25 12:15 | disposition home or self-care (01) | DRG 440 ==
LOC: ER 15:38 → MEDSURG 16:27 → ICU 20:47
PROVIDERS: Admitting Provider Internal Medicine; Emergency Provider Emergency Medicine; PCP Registered Nurse; Visit Provider Internal Medicine
DX: K85.80 Other acute pancreatitis without necrosis or infection (principal); I95.9 Hypotension, unspecified; E86.0 Dehydration; F17.210 Nicotine dependence, cigarettes, uncomplicated; E78.1 Pure hyperglyceridemia; F10.20 Alcohol dependence, uncomplicated
CPT/HCPCS: 36415; 36416; 74177; 80053; 80306; 82962; 83036; 83690; 83721; 83735; 84478; 85025; 86140; 96372; 96374; 96375; 96376; 99285; C9113; J1170; J1650; J1815; J1885; J2405; J7030; J7050; J7121; Q9967

== ENCOUNTER 2024-10-20 12:29 | Emergency (ER) | payer BC, MEDICAID, SELFPAY ==
[2024-10-20] VITALS (9 sets, daily range): BP systolic 138–159; BP diastolic 84–103; PULSE 80–110; RESP 16–18; TEMP 36.6; O2SAT 95–98
[2024-10-20 13:23] LABS: Basophils % 0.3 %; Hematocrit 50.5 % (37-53); Lymphocytes # 1.1 10^3/uL (0.8-4.8); Lymphocytes % 11.1 %; Mean Corpuscular HGB Conc 34.1 g/dL (30-55); Mean Corpuscular Hemoglobin 31.3 pg (27-33); Mean Platelet Volume 9.7 fL (7.4-10.4); Monocytes # 0.3 10^3/uL (0.2-0.9); Monocytes % 3.3 %; Neutrophils # 8.36 10^3/uL (1.8-7.7); Nucleated Red Blood Cells % 0 %; Platelet Count 264 10^3/cmm (157-399); Red Blood Count 5.49 10^6/uL (3.85-5.65); Red Cell Distribution Width 10.5 % (12.1-15.1); White Blood Count 9.83 10^3/uL (3.29-11.43)
--- NOTE | 2024-10-20 13:31 | W.ED.ABDPA2 ---
HPI - Abdominal Pain General: Chief Complaint: Abdominal Pain Stated Complaint: Pancre Flare up Time Seen by Provider: 10/20/24 13:25 History of Present Illness: 29-year-old male presents with epigastric pain. Patient has a history of recurrent alcoholic pancreatitis. Patient reports that his symptoms have been going on for couple days. That he had a small drink today but is recently went through some withdrawals. Patient reports he has not been able to eat anything for the last 2 days. Patient reports has been hospitalized in the ICU a couple times due to his pancreatitis. Associated Symptoms: Reports nausea; Denies chills and fever(s) Related Data Home Medications Medication Instructions Recorded Confirmed buspirone 10 mg tablet 10 mg PO TID 05/11/24 10/20/24 Previous Rx's Medication Instructions Recorded pantoprazole 40 mg tablet,delayed 40 mg PO BID 14 days #28 tabs 10/20/24 release sucralfate 100 mg/mL oral 1 g (10 mL) PO BID 8 weeks #1,120 10/20/24 suspension (Carafate) mL Allergies Allergy/AdvReac Type Severity Reaction Status Date / Time No Known Allergies Allergy Verified 05/12/24 11:45 Review of Systems Const: Reports: malaise; Denies: fever(s) or chills Card: Denies: chest pain or palpitations Resp: Denies: dyspnea or productive cough GI: Reports: abdominal pain and nausea : Denies: flank pain or difficulty urinating Musc: Denies: neck pain or back pain Psych: Denies: anxiety or depression [facility] ED PFSH: Medical History Hypertriglyceridemia Transaminitis Alcoholism Acute pancreatitis Family History Other Cancer Dementia Social History Smoking and tobacco/nicotine status: unknown if used tobacco/nicotine Alcohol intake: current Substance/Drug Use: never Physical Exam Const: COMMON NORMALS: average body habitus, patient oriented x3 and alert Resp: COMMON NORMALS: normal respiratory effort, No retractions and No use of accessory muscles Cardio: COMMON NORMALS: regular rhythm RATE: tachycardic RHYTHM: regular rhythm GI: COMMON NORMALS: Soft to palpation PALPATION: Yes Soft to palpation and Yes Tenderness to palpation present (GI) (Epigastric) Neuro: COMMON NORMALS: patient oriented x3, no focal motor deficits and no sensory deficits noted SENSORIUM/ORIENTATION: Yes alert Psych: COMMON NORMALS: Normal thought process present and cooperative THOUGHT PROCESS: Normal thought process present Skin: COMMON NORMALS: no rashes or lesions noted and turgor normal GENERAL SKIN EXAM: no rashes or lesions noted and turgor normal Course Vital Signs: Vital signs: Vital Signs Temperature 97.8 F 10/20/24 12:51 Pulse Rate 102 H 10/20/24 18:57 Respiratory Rate 16 10/20/24 18:57 Blood Pressure 146/99 10/20/24 18:57 Pulse Oximetry 96 10/20/24 18:57 Oxygen Delivery Me thod Room Air 10/20/24 18:57 MDM - Abdominal Pain Medical Decision Making Patient's diagnostic studies were ordered reviewed interpreted by me. Patient's labs showed no significant acute findings. Patient was concerned and they requested a abdominal CT. Findings were compatible with a likely peptic ulcer. Did discuss findings with general surgery. They recommended Protonix 40 mg twice daily along with Carafate twice daily. That he will likely need a EGD in about 6 weeks but not while it is acutely inflamed. I discussed findings with patient who voices understanding. Recommended they should consider refraining from ibuprofen at this time. Patient is stable and discharged home Lab Data 10/20/24 13:11 10/20/24 13:11 Labs/Radiology: Radiology Impressions Abdomen/Pelvis CT 10/20/24 16:15 IMPRESSION: 1. Severe irregular wall thickening of the gastric antrum and duodenal sweep with probable associated ulceration is a perigastric/periduodenal edema. Findings are compatible with gastroenteritis/peptic ulcer disease. Consider endoscopy. 2. Additional findings, as above. Laboratory Results WBC 9.83 10^3/uL (3.29-11.43) 10/20/24 13:11 RBC 5.49 10^6/uL (3.85-5.65) 10/20/24 13:11 Hgb 17.20 g/dL (11.27-16.99) H 10/20/24 13:11 Hct 50.5 % (37-53) 10/20/24 13:11 MCV 92.0 fl (82-101) 10/20/24 13:11 MCH 31.3 pg (27-33) 10/20/24 13:11 MCHC 34.1 g/dL (30-55) 10/20/24 13:11 RDW 10.5 % (12.1-15.1) L 10/20/24 13:11 Plt Count 264 10^3/cmm (157-399) 10/20/24 13:11 MPV 9.7 fL (7.4-10.4) 10/20/24 13:11 Neut % (Auto) 85.0 % 10/20/24 13:11 Lymph % (Auto) 11.1 % 10/20/24 13:11 [place] % (Auto) 3.3 % 10/20/24 13:11 Eos % (Auto) 0.0 % 10/20/24 13:11 Baso % (Auto) 0.3 % 10/20/24 13:11 Neut # (Auto) 8.36 10^3/uL (1.8-7.7) H 10/20/24 13:11 Lymph # (Auto) 1.1 10^3/uL (0.8-4.8) 10/20/24 13:11 [place] # (Auto) 0.3 10^3/uL (0.2-0.9) 10/20/24 13:11 Eos # (Auto) 0.0 10^3/uL (0.0-0.8) 10/20/24 13:11 Baso # (Auto) 0.0 10^3/uL (0.0-0.1) 10/20/24 13:11 Nucleated RBC % (auto) 0 % 10/20/24 13:11 Nucleated RBCs # 0.0 /100WBC 10/20/24 13:11 Sodium 135 mmol/L (136-145) L 10/20/24 13:11 Potassium 4.2 mmol/L (3.5-5.1) 10/20/24 13:11 Chloride 93 mmol/L (98-107) L 10/20/24 13:11 Carbon Dioxide 20 mmol/L (22-29) L 10/20/24 13:11 Anion Gap 26.2 (5-19) H 10/20/24 13:11 BUN 14 mg/dL (6-20) 10/20/24 13:11 Creatinine 0.9 mg/dL (0.7-1.2) 10/20/24 13:11 GFR Calculation 99.1 mL/min (90-130) 10/20/24 13:11 Glucose 98 mg/dL (65-115) 10/20/24 13:11 Calculated Osmolality 280 mOsm/kg (285-295) L 10/20/24 13:11 Calcium 9.9 mg/dL (8.5-10.5) 10/20/24 13:11 Total Bilirubin 0.7 mg/dL (0.15-1.2) 10/20/24 13:11 AST 20 U/L (0-40) 10/20/24 13:11 ALT 14 U/L (0-41) 10/20/24 13:11 Alkaline Phosphatase 104 U/L (40-130) 10/20/24 13:11 Total Protein 8.5 g/dL (6.6-8.7) 10/20/24 13:11 Albumin 4.9 g/dL (3.5-5.2) 10/20/24 13:11 Globulin 3.6 g/dL (1.3-4.6) 10/20/24 13:11 Lipase 96 U/L (13-60) H 10/20/24 13:11 All radiology interpretation(s) finalized by discharge Discharge Plan Discharge Patient Disposition: Home Clinical Impression: Peptic ulcer disease Condition: Stable Prescriptions: New pantoprazole 40 mg tablet,delayed release (DR/EC) 40 mg PO BID 14 Days Qty: 28 0RF sucralfate [Carafate] 100 mg/mL suspension 1 g PO BID 56 Days Qty: 1120 0RF No Action buspirone 10 mg tablet 10 mg PO TID Discharge Orders: Discharge ED (Routine); Ordered 10/20/24 Ordered By: Miles Hwang Referrals: Katlin Sheppard FNP [Primary Care Provider] - Discharge Diet: Advance as tolerated Discharge Activity: Resume usual activity Patient Instructions: Peptic Ulcer (ED), Diet for Stomach Ulcers and Gastritis (ED), Opioid Safety, Pain Management Activity Restrictions/Additional Instructions: Please follow-up with a GI specialist or general surgery for further outpatient management. Please follow your primary care provider as needed for medication renewal Stand Alone Forms: Work/School Release Coding Level of Care Code ED Library Paraprofessional for Chg Fwd
[2024-10-20 13:38] LABS: Alanine Aminotransferase 14 U/L (0-41); Albumin Level 4.9 g/dL (3.5-5.2); Alkaline Phosphatase 104 U/L (40-130); Anion Gap 26.2 (5-19); Aspartate Amino Transferase 20 U/L (0-40); Blood Urea Nitrogen 14 mg/dL (6-20); Calcium 9.9 mg/dL (8.5-10.5); Carbon Dioxide 20 mmol/L (22-29); Chloride 93 mmol/L (98-107); Globulin 3.6 g/dL (1.3-4.6); Glomerular Filtration Rate 99.1 mL/min (90-130); Glucose 98 mg/dL (65-115); Lipase 96 U/L (13-60); Osmolality Calculated 280 mOsm/kg (285-295); Potassium 4.2 mmol/L (3.5-5.1); Sodium 135 mmol/L (136-145); Total Bilirubin 0.7 mg/dL (0.15-1.2); Total Protein 8.5 g/dL (6.6-8.7)
[2024-10-20] MEDS: ondansetron 2 mg/ML SDV 2 mL 4 MG IVP (13:50)
[2024-10-20] MEDS: morphine 4 mg/mL SDV 1 mL IVP (13:56)
[2024-10-20] MEDS: pantoprazole 40 mg SDV IVP (14:02)
[2024-10-20] MEDS: lidocaine 2% viscous 15 ML, aluminum-mag hydrox-simethicon 30 ML, sucralfate oral liq 1 GM PO (14:51)
[2024-10-20] MEDS: lactated ringers 1,000 ML 999 ML IV (15:34)
--- NOTE | 2024-10-20 16:15 | CTR_ITS ---
PROCEDURE INFORMATION: Exam: CT Abdomen And Pelvis With Contrast Exam date and time: 10/20/2024 5:55 PM Age: 29 years old Clinical indication: Abdominal pain; Additional info: Abdominal pain, history of recurrent pancreatitis TECHNIQUE: Imaging protocol: Computed tomography of the abdomen and pelvis with contrast. Axial, coronal and sagittal reformatted images were created and reviewed. Radiation optimization: All CT scans at this facility use at least one of these dose optimization techniques: automated exposure control; mA and/or kV adjustment per patient size (includes targeted exams where dose is matched to clinical indication); or iterative reconstruction. Contrast material: OMNI 350; Contrast volume: 100 ml; Contrast route: INTRAVENOUS (IV); COMPARISON: CT abdomen pelvis w con* [id number] 11/24/2023 2:51 PM RADIATION DOSE METRICS: Total DLP (mGy-cm): 428.4 FINDINGS: Liver: Unremarkable. Gallbladder and biliary ducts: No radiodense gallstones. No biliary ductal dilatation. Pancreas: Unremarkable. Spleen: Unremarkable. Adrenal glands: Normal. No mass. Kidneys and ureters: No mass. No radiodense calculi. No hydronephrosis. Stomach and bowel: Severe irregular wall thickening of the gastric antrum and duodenal sweep with probable associated ulceration is a perigastric/periduodenal edema. No obstruction. No pneumatosis. Appendix: Normal. Intraperitoneal space: No free fluid. No organized fluid collection. No free air. Vasculature: Unremarkable. No aneurysm. Lymph nodes: No pathologically enlarged lymph nodes. Urinary bladder: Unremarkable as visualized. Reproductive: Unremarkable. Bones/joints: No acute osseous abnormality. Soft tissues: Unremarkable. CT/CT abdomen pelvis w con* [id number] IMPRESSION: 1. Severe irregular wall thickening of the gastric antrum and duodenal sweep with probable associated ulceration is a perigastric/periduodenal edema. Findings are compatible with gastroenteritis/peptic ulcer disease. Consider endoscopy. 2. Additional findings, as above.
[2024-10-20] MEDS: ketorolac 30 mg/mL INJ 15 MG IVP (16:41)
[2024-10-20] MEDS: iohexol 350 mg/mL 500 mL Btl (per mL) IV (17:59)
[2024-10-20] MEDS: acetaminophen 1,000 MG/100 ML PIGGYBACK 400 MG IV (19:13)
== END 2024-10-20 19:47 | disposition home or self-care (01) ==
PROVIDERS: Emergency Medicine; Emergency Provider Student in an Organized Health Care Education/Training Program; PCP Registered Nurse
DX: K27.9 Peptic ulcer, site unspecified, unspecified as acute or chronic, without hemorrhage or perforation (principal)
CPT/HCPCS: 36415; 74177; 80053; 83690; 85025; 96361; 96374; 96375; 99285; J0131; J1885; J2270; J2405; J2470; J7120

== ENCOUNTER 2024-11-09 12:17 | Inpatient (IN) | payer BC, SELFPAY ==
[2024-11-09] VITALS (17 sets, daily range): BP systolic 132–150; BP diastolic 88–99; PULSE 72–117; RESP 16–18; TEMP 36.7; O2SAT 93–98; BMI 22.4
[2024-11-09 14:05] LABS: Basophils % 0.2 %; Hematocrit 47.4 % (37-53); Lymphocytes # 0.7 10^3/uL (0.8-4.8); Lymphocytes % 9.1 %; Mean Corpuscular HGB Conc 34.8 g/dL (30-55); Mean Corpuscular Hemoglobin 31.6 pg (27-33); Mean Corpuscular Volume 90.8 fl (82-101); Mean Platelet Volume 9.4 fL (7.4-10.4); Monocytes # 0.4 10^3/uL (0.2-0.9); Monocytes % 4.7 %; Neutrophils # 6.99 10^3/uL (1.8-7.7); Neutrophils % 85.8 %; Nucleated Red Blood Cells % 0 %; Platelet Count 236 10^3/cmm (157-399); Red Blood Count 5.22 10^6/uL (3.85-5.65); Red Cell Distribution Width 11.3 % (12.1-15.1); White Blood Count 8.15 10^3/uL (3.29-11.43)
--- NOTE | 2024-11-09 14:19 | ED_ITS ---
HPI - Abdominal Pain 2 General: Chief Complaint: Abdominal Pain Stated Complaint: severe upper abd pain Time Seen by Provider: 11/09/24 14:09 History of Present Illness: 29-year-old male presents emergency room complaining of upper abdominal abdominal pain radiating to his back. Associated Symptoms: Denies chills, dysuria and fever(s) Related Data Home Medications Medication Instructions Recorded Confirmed buspirone 10 mg tablet 10 mg PO TID 05/11/24 11/09/24 Previous Rx's Medication Instructions Recorded sucralfate 100 mg/mL oral 1 g (10 mL) PO BID 8 weeks #1,120 10/20/24 suspension (Carafate) mL Allergies Allergy/AdvReac Type Severity Reaction Status Date / Time No Known Allergies Allergy Verified 11/09/24 12:25 Review of Systems 2 Const: Denies: fever(s) or chills Card: Denies: chest pain Resp: Denies: dyspnea GI: Denies: abdominal pain : Denies: dysuria, urinary frequency or urinary urgency Musc: Denies: neck pain or back pain Skin/Breast: Denies: rash PFSH ED 2 PFSH: Medical History Hypertriglyceridemia Transaminitis Alcoholism Acute pancreatitis Family History Other Cancer Dementia Social History Smoking and tobacco/nicotine status: unknown if used tobacco/nicotine Alcohol intake: current Substance/Drug Use: never Physical Exam 2 Const: COMMON NORMALS: no acute distress GENERAL APPEARANCE: cooperative and comfortable ORIENTATION/CONSCIOUSNESS: Yes awake, Yes oriented to person, Yes oriented to place and Yes oriented to time HENMT: COMMON NORMALS: normocephalic, atraumatic and hearing grossly normal bilaterally HEAD & SCALP: normocephalic and atraumatic Resp: COMMON NORMALS: normal respiratory effort, No retractions, No use of accessory muscles and clear to auscultation bilaterally AUSCULTATION: clear to auscultation bilaterally Cardio: COMMON NORMALS: regular rate, regular rhythm and No murmurs present (Cardio) RATE: regular rate RHYTHM: regular rhythm GI: COMMON NORMALS: Soft to palpation and No hepatosplenomegaly present A USCULTATION: Yes normoactive bowel sounds PALPATION: Yes Soft to palpation, No Tenderness to palpation present (GI), No Guarding due to palpation present (GI) and Yes No hepatosplenomegaly present Extremity: COMMON NORMALS: normal to inspection, capillary refill normal, no clubbing, cyanosis or edema, no calf tenderness and no pedal edema Neuro: SENSORIUM/ORIENTATION: Yes oriented to person, Yes oriented to place and Yes oriented to time Skin: COMMON NORMALS: no rashes or lesions noted GENERAL SKIN EXAM: no rashes or lesions noted Course 2 Vital Signs: Vital signs: Vital Signs Temperature 98.1 F 11/09/24 12:21 Pulse Rate 92 11/09/24 12:21 Blood Pressure 141/99 11/09/24 12:21 Pulse Oximetry 98 11/09/24 12:21 Oxygen Delivery Me thod Room Air 11/09/24 12:21 MDM - Abdominal Pain Lab Data 11/09/24 13:55 11/09/24 13:55 Labs/Radiology: Laboratory Results WBC 8.15 10^3/uL (3.29-11.43) 11/09/24 13:55 RBC 5.22 10^6/uL (3.85-5.65) 11/09/24 13:55 Hgb 16.50 g/dL (11.27-16.99) 11/09/24 13:55 Hct 47.4 % (37-53) 11/09/24 13:55 MCV 90.8 fl (82-101) 11/09/24 13:55 MCH 31.6 pg (27-33) 11/09/24 13:55 MCHC 34.8 g/dL (30-55) 11/09/24 13:55 RDW 11.3 % (12.1-15.1) L 11/09/24 13:55 Plt Count 236 10^3/cmm (157-399) 11/09/24 13:55 MPV 9.4 fL (7.4-10.4) 11/09/24 13:55 Neut % (Auto) 85.8 % 11/09/24 13:55 Lymph % (Auto) 9.1 % 11/09/24 13:55 [place] % (Auto) 4.7 % 11/09/24 13:55 Eos % (Auto) 0.0 % 11/09/24 13:55 Baso % (Auto) 0.2 % 11/09/24 13:55 Neut # (Auto) 6.99 10^3/uL (1.8-7.7) 11/09/24 13:55 Lymph # (Auto) 0.7 10^3/uL (0.8-4.8) L 11/09/24 13:55 [place] # (Auto) 0.4 10^3/uL (0.2-0.9) 11/09/24 13:55 Eos # (Auto) 0.0 10^3/uL (0.0-0.8) 11/09/24 13:55 Baso # (Auto) 0.0 10^3/uL (0.0-0.1) 11/09/24 13:55 Nucleated RBC % (auto) 0 % 11/09/24 13:55 Nucleated RBCs # 0.0 /100WBC 11/09/24 13:55 Discharge Plan Discharge Condition: Stable Prescriptions: No Action buspirone 10 mg tablet 10 mg PO TID sucralfate [Carafate] 100 mg/mL suspension 1 g PO BID 56 Days Qty: 1120 0RF Referrals: Katlin Sheppard FNP [Primary Care Provider] - Coding Level of Care Code ED Fixture Relamper for Agueda Nation
[2024-11-09 14:20] LABS: Alanine Aminotransferase 23 U/L (0-41); Albumin Level 4.7 g/dL (3.5-5.2); Alkaline Phosphatase 102 U/L (40-130); Anion Gap 16.3 (5-19); Aspartate Amino Transferase 24 U/L (0-40); Blood Urea Nitrogen 9 mg/dL (6-20); Carbon Dioxide 27 mmol/L (22-29); Chloride 101 mmol/L (98-107); Creatinine Clr Calc Pharmacy 166.9582; Globulin 3.3 g/dL (1.3-4.6); Glomerular Filtration Rate 132.4 mL/min (90-130); Glucose 146 mg/dL (65-115); Lipase 180 U/L (13-60); Osmolality Calculated 291 mOsm/kg (285-295); Potassium 4.3 mmol/L (3.5-5.1); Sodium 140 mmol/L (136-145); Total Bilirubin 0.6 mg/dL (0.15-1.2)
--- NOTE | 2024-11-09 14:32 | CTR_ITS ---
PROCEDURE INFORMATION: Exam: CT Abdomen And Pelvis With Contrast Exam date and time: 11/09/2024 2:52 PM Age: 29 years old Clinical indication: Abdominal pain; Additional info: Umbilical abd pain x 4 days. Recently dx with ulcer. HX of recurrent pancreatitis. No trauma TECHNIQUE: Imaging protocol: Computed tomography of the abdomen and pelvis with contrast. Radiation optimization: All CT scans at this facility use at least one of these dose optimization techniques: automated exposure control; mA and/or kV adjustment per patient size (includes targeted exams where dose is matched to clinical indication); or iterative reconstruction. Contrast material: OMNI 350; Contrast volume: 100 ml; Contrast route: INTRAVENOUS (IV); COMPARISON: CT abdomen pelvis w con* [id number] 10/20/2024 5:55 PM RADIATION DOSE METRICS: Total DLP (mGy-cm): 459.93 FINDINGS: Liver: Normal. No mass. Gallbladder and biliary ducts: No biliary ductal dilation. Pancreas: No significant peripancreatic inflammatory changes or ductal dilation. Spleen: Normal. No splenomegaly. Adrenal glands: Normal. No mass. Kidneys and ureters: Normal. No hydronephrosis. Stomach and bowel: Severe inflammation to the gastric antrum and 1st-2nd duodenal segments with a large amount of surrounding free fluid and a questionable 1.8 x 1.6 cm fluid collection in the pancreatico duodenal groove. Mild contiguous inflammation to the pancreatic head hepatic flexure, and CBD. No bowel obstruction or other significant bowel wall thickening. Appendix: Appendix is distended with intraluminal fecal material, measuring up to 1 cm, but without any inflammatory changes. This is of chronic etiology and does not represent acute appendicitis at this time. Intraperitoneal space: Free fluid and inflammatory changes throughout the right upper quadrant mesentery with additional free fluid layering along the pelvis and tracking along the right paracolic gutter. No free intraperitoneal air. Vasculature: Unremarkable. No abdominal aortic aneurysm. Lymph nodes: Unremarkable. No enlarged lymph nodes. Urinary bladder: Unremarkable as visualized. Reproductive: Unremarkable as visualized. Bones/joints: Unremarkable. No acute fracture. Soft tissues: Unremarkable. CT/CT abdomen pelvis w con* [id number] IMPRESSION: 1. Severe inflammation to the gastric antrum and proximal duodenal segments with a questionable fluid collection in the duodenal wall (possible ulceration), again highly concerning for peptic ulcer disease. Gastroenterology consultation is recommended. 2. Mild contiguous inflammation to the pancreatic head hepatic flexure, and CBD. 3. Mild reactive ascites.
[2024-11-09] MEDS: iohexol 350 mg/mL 500 mL Btl (per mL) IV (14:53)
[2024-11-09] MEDS: ondansetron 2 mg/ML SDV 2 mL 4 MG IVP (15:09)
[2024-11-09] MEDS: morphine 4 mg/mL SDV 1 mL IVP (15:11)
--- NOTE | 2024-11-09 16:31 | P.HP_ITS ---
Providers/Chief Complaint 2 Primary Care Provider: LAZARO Le Chief Complaint: severe upper abd pain History of Present Illness Patrick Gracia is a 29 year old male with a past medical history of acute pancreatitis, hypertriglyceridemia induced pancreatitis, alcoholism, nausea, vomiting, abdominal pain, diarrhea. Patient since June 2023, has had 2 hospitalizations for acute pancreatitis, both hypertriglyceridemia induced pancreatitis requiring insulin drip. He in addition has had 5 ER visits in the last year for abdominal pain.Patient was seen in the emergency room on 06/01/2025, for abdominal pain, with concerns for alcoholism, concern for withdrawals, imaging at that time showed concerns for possible peptic ulcer disease, he was supposed to follow-up with general surgery as outpatient for EGD, managed on Protonix. And Carafate. He tells me that since then he continues to have abdominal pain, nausea, vomiting, diarrhea reports drinking up to 5 beers a day, no other alcohol use, he does report vaping, does report using cigarettes, he denies current drug use but has reported drug abuse in the past. He denies any hemoptysis or hematemesis or bloody or black tarry stools. Or coffee-ground emesis. No family history of gastric ulcers, for his hypertriglyceridemia he is not on any medications he has not followed up with primary care provider or endocrinology. In the emergency room, he was diagnosed with severe inflammation of the gastric And proximal duodenum segments highly concerning for peptic ulcer disease, fluid collection 1.8 x 1.6 cm in the pancreas duodenal groove. Mild contiguous inflammation to the pancreatic head hepatic flexure and CBD. Mild reactive ascites. Lipase was 180. General surgery has been consulted, plans on EGD tomorrow morning. Concerns for pancreatitis, has been given Protonix, Zofran, pain control. Discussed with ER provider will get a triglyceride level, if triglycerides are over 500, will likely require ICU admission for insulin drip, Review of Systems 2 Const: Denies: fever(s) or chills Card: Denies: chest pain Resp: Denies: dyspnea GI: Reports: abdominal pain, nausea, vomiting, heartburn and diarrhea; Denies: coffee ground emesis, hematochezia, melena or mucus in stool Medications/Allergies Home Medications Medication Instructions Recorded Confirmed Last Taken Type buspirone 10 mg tablet 10 mg PO TID 05/11/24 11/09/2425 History sucralfate 100 mg/mL oral 1 g (10 mL) PO BID 8 weeks #1,120 10/20/24 11/09/24 Unknown Rx suspension (Carafate) mL Allergies Allergy/AdvReac Type Severity Reaction Status Date / Time No Known Allergies Allergy Verified 11/09/24 12:25 PFSH Acute 2 PFSH: Medical History Hypertriglyceridemia Transaminitis Alcoholism Acute pancreatitis Family History Other Cancer Dementia Social History Smoking and tobacco/nicotine status: unknown if used tobacco/nicotine Alcohol intake: current Substance/Drug Use: never Vitals/I&O/Wt Last Vital Signs Temp 98.1 F 11/09/24 12:21 Pulse 92 11/09/24 12:21 Resp 16 11/09/24 15:11 BP 141/99 11/09/24 12:21 Pulse Ox 96 11/09/24 15:11 O2 Del Method Room Air 11/09/24 12:21 Weight last 48 hrs Weight 74.843 kg Physical Exam 2 Const: COMMON NORMALS: no acute distress and patient oriented x3 HENMT: COMMON NORMALS: normocephalic HEAD & SCALP: normocephalic Neck/C-Spine: COMMON NORMALS: no JVD Resp: COMMON NORMALS: normal respiratory effort, No retractions, No use of accessory muscles and clear to auscultation bilaterally AUSCULTATION: clear to auscultation bilaterally Cardio: COMMON NORMALS: no JVD, regular rate, regular rhythm, S1 normal heart sound present and S2 normal heart sound present RATE: regular rate RHYTHM: regular rhythm HEART SOUNDS: S1 normal heart sound present and S2 normal heart sound present GI: OTHER: Abdomen is soft, distended, diminished bowel sounds in all 4 quadrants, no guarding, no rebound, no rigidity, but does have diffuse tenderness Extremity: COMMON NORMALS: no calf tenderness and no pedal edema Neuro: COMMON NORMALS: patient oriented x3, CN's II-XII intact bilaterally and moves all extremities Psych: COMMON NORMALS: mental status grossly normal Data 11/09/24 13:55 11/09/24 13:55 A&P Assessment and plan (1) Pancreatitis: Qualifiers: Acute pancreatitis complication: no infection or necrosis Chronicity: a cute Pancreatitis type: alcohol induced Qualified Code(s): K85.20 - Alcohol induced acute pancreatitis without necrosis or infection (2) Duodenitis: (3) Peptic ulcer disease: (4) Alcohol withdrawal: (5) Alcoholism: (6) Hypertriglyceridemia: Plan Concern for peptic ulcer disease, concerns for gastric/duodenal ulcer, duodenitis, gastritis CT/CT abdomen pelvis w con* [id number] IMPRESSION: 1. Severe inflammation to the gastric antrum and proximal duodenal segments with a questionable fluid collection in the duodenal wall (possible ulceration), again highly concerning for peptic ulcer disease. Gastroenterology consultation is recommended. 2. Mild contiguous inflammation to the pancreatic head hepatic flexure, and CBD. 3. Mild reactive ascites. Plan -General Surgery consulted -N.p.o. -IV fluids -Protonix 40 IV twice daily -Carafate -Zosyn -Nausea control Zofran, Reglan -Plans on EGD tomorrow Pancreatitis -Check for triglycerides over 500 likely has a component of hypertriglyceridemia pancreatitis in addition to alcoholism -Will need ICU admission for insulin drip -IV fluids -N.p.o. -Protonix -Zosyn -Dilaudid for pain control -Nausea control Zofran, Reglan -Abdominal exams Hypertriglyceridemia- -will have to start patient on gemfibrozil, statin -IV fluids Alcohol withdrawal, CIWA protocol Full code SCDs for DVT prophylax Lovenox relatively contraindicated given concerns for gastric/duodenal ulcer Attestations 2 Medical Necessity Statement*: Patient requires hospitalization, inpatient, greater than 2 minutes, for acute pancreatitis, duodenitis, concerns for hypertriglyceridemia due to pancreatitis, peptic ulcer disease, alcohol withdrawal, Diagnoses Pancreatitis K85.20 Acute pancreatitis complication: no infection or necrosis Chronicity: acute Pancreatitis type: alcohol induced Duodenitis K29.80 Peptic ulcer disease K27.9 Alcohol withdrawal F10.939 Alcoholism F10.20 Hypertriglyceridemia E78.1
--- NOTE | 2024-11-09 16:42 | P.CONIM_ITS ---
Providers/Reason For Consult 2 Consulting Physician/Specialty*: General Surgery Reason for Consult*: Severe duodenitis Primary Care Provider: LAZARO Le History of Present Illness History of Present Illness Patrick Gracia is a 29 year old male Who has a history of alcohol induced pancreatitis, hypertriglyceridemia and history of duodenitis. Presents with severe upper abdominal pain nausea and vomiting. Patient presented with similar symptoms at the beginning of October CT scan show evidence of severe duodenitis with possible ulceration. Patient was placed on twice a day PPI and Carafate. Since then his symptoms mildly improved but 3 days ago symptoms worsened significantly. According to the patient he is still drinking intermittently, almost every other day 2-3 beers. Review of Systems 2 General: Reports: 10 or more systems reviewed and unremarkable except in HPI and below Medications/Allergies Home Medications Medication Instructions Recorded Confirmed Last Taken Type buspirone 10 mg tablet 10 mg PO TID 05/11/24 11/09/24 10/19/24 History sucralfate 100 mg/mL oral 1 g (10 mL) PO BID 8 weeks #1,120 10/20/24 11/09/24 Unknown Rx suspension (Carafate) mL Allergies Allergy/AdvReac Type Severity Reaction Status Date / Time No Known Allergies Allergy Verified 11/09/24 12:25 PFSH Acute 2 PFSH: Medical History Hypertriglyceridemia Transaminitis Alcoholism Acute pancreatitis Family History Other Cancer Dementia Social History Smoking and tobacco/nicotine status: unknown if used tobacco/nicotine Alcohol intake: current Substance/Drug Use: never Vitals/I&O/Wt Last Vital Signs Temp 98.1 F 11/09/24 12:21 Pulse 92 11/09/24 12:21 Resp 16 11/09/24 15:11 BP 141/99 11/09/24 12:21 Pulse Ox 96 11/09/24 15:11 O2 Del Method Room Air 11/09/24 12:21 Weight last 48 hrs Weight 165 lb Physical Exam 2 Narrative: General : Patient is well developed , no acute distress, oriented x3 Head : Normal cephalic, a-traumatic. Nose : Mucous membranes are without erythema. Lungs : Equal chest rise bilaterally, no use of accessory muscles, trachea is midline. CV : Rate and rhythm are normal. Abdomen : Soft, Tender in the epigastrium, nondistended. Extremities : No edema. Upper extremities are normal bilaterally. Back : non-tender to palpation, no CVA tenderness. Data 11/09/24 13:55 11/09/24 13:55 A&P Assessment and plan (1) Duodenitis: (2) Alcohol withdrawal: Plan After complete history, physical examination and review of all available clinical data the following is my assessment. Patient presents with severe duodenitis pancreatitis in the setting of chronic alcohol intake. At this moment patient will require supportive care with IV fluid resuscitation, IV antibiotics, IV Protonix and Carafate. At the moment there is no signs or symptoms concerning for the possibility of perforation. Vital signs are stable and abdominal exam is grossly benign. While there is severe inflammation at this time, since the picture has been persistent for almost 20 days I think we we will require to proceed with upper endoscopy for possible biopsy. I have discussed with the patient and family members the risks of proceeding with endoscopy including the risk of perforation of the esophagus stomach or duodenum, I have explained to them that the risk of perforation of the duodenum is significantly increasing this case due to the severe inflammatory reaction that is seen in CT scan. He also has what appears to be a duodenal ulcer. Patient family member showed understanding and they are agreeable to proceed with endoscopy. We will book endoscopy for tomorrow morning. Coding Level of Care Code 09841 Diagnoses Duodenitis K29.80 Alcohol withdrawal F10.939
[2024-11-09] MEDS: pantoprazole 40 mg SDV 80 MG IVP (17:07)
[2024-11-09 17:08] LABS: Estmated Average Glucose 100; Hemoglobin A1C 5.1 % (4.0-6.0)
[2024-11-09] MEDS: folic acid 1 mg Tablet PO (17:12)
[2024-11-09] MEDS: thiamine 100 mg Tablet PO (17:12)
[2024-11-09] MEDS: multivitamin therapeutic Tablet 1 TAB PO (17:12)
[2024-11-09] MEDS: sucralfate 1 gm/10 mL Oral Liq UDC PO ×2 (17:12→22:31)
[2024-11-09] MEDS: piperacillin-tazobactam 3.375 GM in sodium chloride 0.9% (plus) 50 ML IV ×2 (17:14→22:32)
[2024-11-09] MEDS: thiamine 100 mg/mL 2mL SDV IM (17:16)
[2024-11-09 17:35] LABS: INR 0.88 (0.8-1.2)
[2024-11-09 17:54] LABS: Ketone (Acetest) Serum Negative (Negative)
[2024-11-09 18:00] LABS: Ammonia 35 umol/L (16-60)
[2024-11-09 18:00] LABS: Gamma Glutamyl Transferase 227 U/L (8-61)
[2024-11-09 18:01] LABS: Alcohol Level < 10 mg/dL (0-10)
[2024-11-09 18:05] LABS: Triglycerides 99 mg/dL (0-150)
[2024-11-09] MEDS: HYDROmorphone 1 mg/mL INJ 1 mL 0.5 MG IVP ×3 (18:19→23:56)
[2024-11-09] MEDS: sodium chloride 0.9% 1,000 ML 150 ML IV (19:35)
[2024-11-09] MEDS: nicotine 21 mg Patch 1 PATCH TRANSDERMA (19:50)
[2024-11-09 22:49] LABS: Bilirubin Urine Negative (Negative); Blood Urine Negative (Negative); Glucose Urine UA Negative (Normal); Ketones Urine Negative (Negative); Leukocyte Esterase Urine Negative (Negative); Nitrate Urine Negative (Negative); Protein Urine Trace (Negative); Urine Appearance Clear (CLEAR); Urine Color Yellow (Yellow); pH Urine 5.5 (5-7)
[2024-11-09 22:54] LABS: Add Urine Microscopic? YES; Bacteria Urine None Seen /hpf; Hyaline Casts Urine 0-4 /lpf; RBC Urine 0-2 /hpf (0-2); Squamous Epithelial Cell Urine 0-5 /hpf (0-5); WBC Urine 0-5 /hpf (0-5)
[2024-11-09 22:55] LABS: Amphetamines Screen Urine Negative (Negative); Barbiturates Screen Urine Negative (Negative); Benzodiazepines Screen Urine Negative (Negative); Cocaine Screen Urine Negative (Negative); Opiate Screen Urine Positive (Negative); PCP Screen Urine Negative (Negative); THC Screen Urine Positive (Negative)
[2024-11-09 23:01] LABS: Specific Gravity, Urine 1.066 (1.005-1.030)
[2024-11-10] VITALS (14 sets, daily range): BP systolic 120–155; BP diastolic 73–100; PULSE 62–97; RESP 16–18; TEMP 36.5–37.2; O2SAT 96–98
[2024-11-10] MEDS: sodium chloride 0.9% 1,000 ML 150 ML IV ×2 (01:31→09:22)
[2024-11-10] MEDS: pantoprazole 40 mg SDV IVP ×2 (03:29→16:03)
[2024-11-10] MEDS: sucralfate 1 gm/10 mL Oral Liq UDC PO ×3 (03:29→22:21)
[2024-11-10 05:44] LABS: Basophils % 0.3 %; Eosinophils # 0.1 10^3/uL (0.0-0.8); Eosinophils % 2.1 %; Hematocrit 40.1 % (37-53); Lymphocytes # 1.7 10^3/uL (0.8-4.8); Lymphocytes % 29.5 %; Mean Corpuscular HGB Conc 33.7 g/dL (30-55); Mean Corpuscular Hemoglobin 31.8 pg (27-33); Mean Corpuscular Volume 94.6 fl (82-101); Mean Platelet Volume 9.8 fL (7.4-10.4); Monocytes # 0.6 10^3/uL (0.2-0.9); Monocytes % 9.5 %; Neutrophils # 3.36 10^3/uL (1.8-7.7); Neutrophils % 58.4 %; Nucleated Red Blood Cells % 0 %; Platelet Count 188 10^3/cmm (157-399); Red Blood Count 4.24 10^6/uL (3.85-5.65); Red Cell Distribution Width 11.5 % (12.1-15.1); White Blood Count 5.76 10^3/uL (3.29-11.43)
[2024-11-10 06:09] LABS: INR 0.95 (0.8-1.2)
[2024-11-10 06:12] LABS: Alanine Aminotransferase 16 U/L (0-41); Albumin Level 3.8 g/dL (3.5-5.2); Alkaline Phosphatase 78 U/L (40-130); Anion Gap 13.6 (5-19); Aspartate Amino Transferase 21 U/L (0-40); Blood Urea Nitrogen 9 mg/dL (6-20); C Reactive Protein 9.3 mg/L (0.0-4.9); Carbon Dioxide 27 mmol/L (22-29); Chloride 106 mmol/L (98-107); Globulin 2.6 g/dL (1.3-4.6); Glomerular Filtration Rate 113.5 mL/min (90-130); Glucose 98 mg/dL (65-115); Magnesium 1.9 mg/dL (1.7-2.3); Osmolality Calculated 295 mOsm/kg (285-295); Phosphorus 4.3 mg/dL (2.5-4.5); Potassium 3.6 mmol/L (3.5-5.1); Sodium 143 mmol/L (136-145); Total Bilirubin 0.9 mg/dL (0.15-1.2); Total Protein 6.4 g/dL (6.6-8.7)
[2024-11-10 06:13] LABS: Procalcitonin 0.05 ng/mL (0-0.5)
[2024-11-10] MEDS: HYDROmorphone 1 mg/mL INJ 1 mL 0.5 MG IVP ×2 (06:13→10:40)
[2024-11-10] MEDS: piperacillin-tazobactam 3.375 GM in sodium chloride 0.9% (plus) 50 ML IV ×3 (06:13→22:21)
--- NOTE | 2024-11-10 07:42 | P.HPUD_ITS ---
Surgery/Procedure H&P Update DATE OF PROCEDURE: November 10, 2024 DATE H&P PERFORMED: 11/09/24 H&P UPDATE INFORMATION: I have reviewed H&P completed within last 30 days, I have examined patient prior to procedure, No changes to prior documentation and H&P is in [facility] [place] [facility] EMR on date indicated PLANNED PROCEDURE: Operation Date: 11/10/24 12:45 Proposed Procedures p EGD(Not Applicable) - Eric Castanon MD
[2024-11-10] MEDS: folic acid 1 mg Tablet PO (09:23)
[2024-11-10] MEDS: thiamine 100 mg Tablet PO (09:23)
[2024-11-10] MEDS: multivitamin therapeutic Tablet 1 TAB PO (09:23)
[2024-11-10] MEDS: nicotine 21 mg Patch 1 PATCH TRANSDERMA (09:23)
[2024-11-10 09:27] LABS: Chol HDL Ratio 3.78 mg/dL (1.0-5.00); Cholesterol 174 mg/dL (0-200); HDL Cholesterol 46 mg/dL (60-100); LDL Cholesterol Calculated 101 mg/dL (50-129); Triglycerides 133 mg/dL (0-150)
--- NOTE | 2024-11-10 11:40 | P.ANESASSM_ITS ---
Pre-Anesthetic Assessment Height/Weight: Height 1.83 m Weight 76.793 kg Temp Pulse Resp BP Pulse Ox O2 Del Method 97.9 F 81 16 130/80 97 Room Air 11/10/24 07:55 11/10/24 07:55 11/10/24 10:40 11/10/24 07:55 11/10/24 07:55 11/10/24 07:55 Preop Diagnosis: duodenitis Operation Date: 11/10/24 13:15 Proposed Procedures p EGD(Not Applicable) - Eric Castanon MD Familial anesthetic complications: none Was Beta Terra taken within 24 hours: N/A Was Clonidine taken within 24 hours: N/A Last intake: Intake Last Liquid Date 11/09/24 Last Liquid Time 11:00 Last Solid Date 11/09/24 Last Solid Time 08:00 Social Alcohol (2-3 beers every other day per pt) and Tobacco Exam alert, oriented x 3 and clear to auscultation bilaterally Airway Mallampati: Class II Dentition: full History/ROS No significant history except as noted Pulmonary Asthma (occasionally uses inhaler) CV/HEM None reported None reported Hepatic None reported GI hx pancreatitis Metabolic Hyperlipidemia [facility] [place] None reported Neuropsych None reported Anesthetic Plan ASA status: 2 Anesthesia: Anesthesia Evaluation and MAC Risk of > 500 ml blood loss (7ml/kg in children): No Medications/Allergies Home Medications Medication Instructions Recorded Confirmed Last Taken Type buspirone 10 mg tablet 10 mg PO TID 05/11/24 11/09/24 10/19/24 History sucralfate 100 mg/mL oral 1 g (10 mL) PO BID 8 weeks #1,120 10/20/24 11/09/24 Unknown Rx suspension (Carafate) mL Allergies Allergy/AdvReac Type Severity Reaction Status Date / Time No Known Allergies Allergy Verified 11/09/24 12:25 Current Medications Generic Name Dose Route Start Last Admin Trade Name Freq PRN Reason Stop Dose Admin Folic Acid 1 mg 11/09/24 15:00 11/10/24 09:23 Folic Acid 1 Mg Tablet PO 1 mg DAILY AMAN Administration Sodium Chloride 1,000 mls @ 150 mls/hr 11/09/24 16:30 11/10/24 09:22 Sodium Chloride 0.9% IV 150 mls/hr .Q6H40M AMAN Administration Piperacillin Sod/Tazobactam 50 mls @ 12.5 mls/hr 11/09/24 23:00 11/10/24 10:43 Sod 3.375 gm/ Sodium Chloride IV Infused Q8H AMAN Infusion Multivitamins Therapeutic 1 tab 11/09/24 15:00 11/10/24 09:23 Multivitamin Therapeutic Tablet PO 1 tab DAILY AMAN Administration Nicotine 1 patch 11/09/24 19:33 11/10/24 09:23 Nicotine 21 Mg Patch TRANSDERMA 1 patch DAILY AMAN Administration Pantoprazole Sodium 40 mg 11/10/24 04:00 11/10/24 03:29 Pantoprazole 40 Mg Sdv IVP 40 mg Q12H AMAN Administration Sucralfate 1 gm 11/09/24 16:30 11/10/24 10:43 Sucralfate 1 Gm/10 Ml Oral Liq Udc PO Not Given Q6H AMAN Thiamine Mononitrate 100 mg 11/09/24 15:00 11/10/24 09:23 Thiamine 100 Mg Tablet PO 100 mg DAILY AMAN Administration PFS Anesthesia Medical History Hypertriglyceridemia Transaminitis Alcoholism Acute pancreatitis Family History Other Cancer Dementia Social History Smoking and tobacco/nicotine status: unknown if used tobacco/nicotine Alcohol intake: current Substance/Drug Use: never Data Anesthesia 11/10/24 04:53 11/10/24 04:53 Short CBC 11/09/24 11/10/24 Range/Units 13:55 04:53 WBC 8.15 5.76 (3.29-11.43) 10^3/uL Hgb 16.50 13.50 (11.27-16.99) g/dL Hct 47.4 40.1 (37-53) % MCV 90.8 94.6 (82-101) fl Plt Count 236 188 (157-399) 10^3/cmm Neut % (Auto) 85.8 58.4 % Neut # (Auto) 6.99 3.36 (1.8-7.7) 10^3/uL BMP 11/09/24 11/10/24 13:55 04:53 Sodium 140 143 Potassium 4.3 3.6 Chloride 101 106 Carbon Dioxide 27 27 BUN 9 9 Creatinine 0.7 0.8 Glucose 146 H 98 Calcium 10.0 9.0 Liver Function 11/09/24 11/10/24 Range/Units 13:55 04:53 Total Bilirubin 0.6 0.9 (0.15-1.2) mg/dL GGT 227 H (8-61) U/L AST 24 21 (0-40) U/L ALT 23 16 (0-41) U/L Alkaline Phosphatase 102 78 (40-130) U/L Albumin 4.7 3.8 (3.5-5.2) g/dL Urine 11/09/24 11/09/24 Range/Units 19:45 22:40 Urine Color Cancelled Yellow Urine Appearance Cancelled Clear Urine pH Cancelled 5.5 Ur Specific [place] Cancelled 1.066 H Urine Protein Cancelled Trace A Urine Glucose (UA) Cancelled Negative Urine Ketones Cancelled Negative Urine Nitrate Cancelled Negative Urine Bilirubin Cancelled Negative Ur Leukocyte Esterase Cancelled Negative Urine RBC Cancelled 0-2 Urine WBC Cancelled 0-5 Ur Renal Epithelial Cell Cancelled [place] 11/09/24 11/10/24 16:50 04:53 PT 12.60 13.40 INR 0.88 0.95 C-Reactive Protein 9.3 H Microbiology 11/09/24 16:50 Blood Culture - Preliminary Blood SPECIMEN COLLECTED 11/09/24 16:58 Blood Culture - Preliminary Blood SPECIMEN COLLECTED Cardiac Studies: 2 No Data to Display
--- NOTE | 2024-11-10 12:30 | ANE.PACU2 ---
Inpatient post-anesthesia follow up: Airway intact: Yes Vital signs: Temperature 98 F Pulse Rate 62 Respiratory Rate 17 Blood Pressure 131/85 Pulse Oximetry 97 Oxygen Delivery Me thod Room Air Oxygen Flow Rate Fraction of Inspir ed Oxygen Hydration adequate: Yes Nausea and vomiting: No Pain level: 1 Mental status: Baseline
--- NOTE | 2024-11-10 13:10 | PM.MISC ---
Miscellaneous Note Purpose of Documentation: Update on patient care Note: Upper endoscopy done today, findings consistent with duodenitis and gastritis of the antrum. Significant edema of the mucosa of the duodenum, no significant mucosal defects noted. Will recommend that we continue clear liquid diet today and advance to GI soft tomorrow. Will continue twice a day PPI and 4 times a day liquid Carafate. Patient will need to avoid alcohol intake to allow for healing of the severe episode of duodenitis. He can follow-up with me in 2 weeks to discuss results of pathology.
--- NOTE | 2024-11-10 15:39 | P.PN_ITS ---
Subjective 2 Subjective: Patient was seen this morning, denies any fevers, no chills, no cough does have persistent abdominal pain, the Dilaudid does help with the pain but per pain is persisting despite it, diarrhea has resolved, Vitals/I&O/Wt Last Vital Signs Temp 98 F 11/10/24 13:15 Pulse 62 11/10/24 13:15 Resp 17 11/10/24 13:15 BP 131/85 11/10/24 13:15 Pulse Ox 97 11/10/24 13:15 O2 Del Method Room Air 11/10/24 13:15 11/10/24 11/10/24 11/10/24 06:59 14:59 22:59 Intake Total 995 / 1045 1050 / 1050 Balance 995 / 1045 1050 / 1050 Weight last 48 hrs Weight 76.793 kg Weight 74.843 kg Weight 74.843 kg Physical Exam 2 Const: COMMON NORMALS: no acute distress and patient oriented x3 Resp: COMMON NORMALS: normal respiratory effort, No retractions, No use of accessory muscles and clear to auscultation bilaterally AUSCULTATION: clear to auscultation bilaterally Cardio: COMMON NORMALS: regular rate, regular rhythm, S1 normal heart sound present and S2 normal heart sound present RATE: regular rate RHYTHM: r egular rhythm HEART SOUNDS: S1 normal heart sound present and S2 normal heart sound present GI: COMMON NORMALS: Normal to inspection, nondistended, normoactive bowel sounds present and non-tender Extremity: COMMON NORMALS: no pedal edema Neuro: COMMON NORMALS: patient oriented x3 Psych: COMMON NORMALS: mental status grossly normal Data 11/10/24 04:53 11/10/24 04:53 Micro: Microbiology 11/09/24 16:50 Blood Culture - Preliminary Blood SPECIMEN COLLECTED 11/09/24 16:58 Blood Culture - Preliminary Blood SPECIMEN COLLECTED A&P Assessment and plan (1) Pancreatitis: Qualifiers: Acute pancreatitis complication: no infection or necrosis Chronicity: a cute Pancreatitis type: alcohol induced Qualified Code(s): K85.20 - Alcohol induced acute pancreatitis without necrosis or infection (2) Duodenitis: (3) Peptic ulcer disease: (4) Alcohol withdrawal: (5) Alcoholism: (6) Hypertriglyceridemia: Plan Concern for peptic ulcer disease, concerns for gastric/duodenal ulcer, duodenitis, gastritis CT/CT abdomen pelvis w con* [id number] IMPRESSION: 1. Severe inflammation to the gastric antrum and proximal duodenal segments with a questionable fluid collection in the duodenal wall (possible ulceration), again highly concerning for peptic ulcer disease. Gastroenterology consultation is recommended. 2. Mild contiguous inflammation to the pancreatic head hepatic flexure, and CBD. 3. Mild reactive ascites. Plan -General Surgery consulted -N.p.o. -IV fluids -Protonix 40 IV twice daily -Carafate -Zosyn -Nausea control Zofran, Reglan -Plans on EGD today Pancreatitis -Check for triglycerides over 500 likely has a component of hypertriglyceridemia pancreatitis in addition to alcoholism -Will need ICU admission for insulin drip -IV fluids -N.p.o. -Protonix -Zosyn -Dilaudid for pain control -Nausea control Zofran, Reglan -Abdominal exams Hypertriglyceridemia- -triglycerides are reasonable Alcohol withdrawal, CIWA protocol Full code SCDs for DVT prophylax Lovenox relatively contraindicated given concerns for gastric/duodenal ulcer Attestations 2 Medical Necessity Statement*: Patient requires hospitalization for pancreatitis, peptic ulcer disease concerns Diagnoses Pancreatitis K85.20 Acute pancreatitis complication: no infection or necrosis Chronicity: acute Pancreatitis type: alcohol induced Duodenitis K29.80 Peptic ulcer disease K27.9 Alcohol withdrawal F10.939 Alcoholism F10.20 Hypertriglyceridemia E78.1
[2024-11-10] MEDS: HYDROmorphone 1 mg/mL INJ 1 mL 0.75 MG IVP ×2 (16:03→20:56)
[2024-11-10] MEDS: sodium chloride 0.9% 1,000 ML 100 ML IV (16:06)
[2024-11-11] VITALS (11 sets, daily range): BP systolic 110–145; BP diastolic 72–93; PULSE 53–80; RESP 16–18; TEMP 36.7–36.9; O2SAT 95–97
[2024-11-11] MEDS: sodium chloride 0.9% 1,000 ML 100 ML IV ×2 (02:28→12:38)
[2024-11-11] MEDS: HYDROmorphone 1 mg/mL INJ 1 mL 0.75 MG IVP ×5 (02:29→22:46)
[2024-11-11] MEDS: sucralfate 1 gm/10 mL Oral Liq UDC PO ×4 (03:45→22:46)
[2024-11-11] MEDS: pantoprazole 40 mg SDV IVP ×2 (03:46→16:19)
[2024-11-11 05:32] LABS: Basophils % 0.6 %; Eosinophils # 0.1 10^3/uL (0.0-0.8); Eosinophils % 2.3 %; Hematocrit 37.5 % (37-53); Lymphocytes # 1.7 10^3/uL (0.8-4.8); Mean Corpuscular HGB Conc 34.7 g/dL (30-55); Mean Corpuscular Hemoglobin 31.6 pg (27-33); Mean Corpuscular Volume 91.2 fl (82-101); Mean Platelet Volume 9.6 fL (7.4-10.4); Monocytes # 0.5 10^3/uL (0.2-0.9); Monocytes % 9.6 %; Neutrophils # 2.88 10^3/uL (1.8-7.7); Neutrophils % 55.1 %; Nucleated Red Blood Cells % 0 %; Platelet Count 174 10^3/cmm (157-399); Red Blood Count 4.11 10^6/uL (3.85-5.65); Red Cell Distribution Width 11.2 % (12.1-15.1); White Blood Count 5.22 10^3/uL (3.29-11.43)
[2024-11-11 05:43] LABS: INR 0.98 (0.8-1.2)
[2024-11-11 05:56] LABS: Alanine Aminotransferase 18 U/L (0-41); Albumin Level 3.7 g/dL (3.5-5.2); Alkaline Phosphatase 78 U/L (40-130); Anion Gap 13.3 (5-19); Aspartate Amino Transferase 23 U/L (0-40); Blood Urea Nitrogen 6 mg/dL (6-20); C Reactive Protein 6.2 mg/L (0.0-4.9); Calcium 8.7 mg/dL (8.5-10.5); Carbon Dioxide 27 mmol/L (22-29); Chloride 102 mmol/L (98-107); Creatinine Clr Calc Pharmacy 169.4576; Globulin 2.6 g/dL (1.3-4.6); Glomerular Filtration Rate 132.4 mL/min (90-130); Glucose 83 mg/dL (65-115); Magnesium 1.7 mg/dL (1.7-2.3); Osmolality Calculated 285 mOsm/kg (285-295); Phosphorus 3.4 mg/dL (2.5-4.5); Potassium 3.3 mmol/L (3.5-5.1); Sodium 139 mmol/L (136-145); Total Bilirubin 0.8 mg/dL (0.15-1.2); Total Protein 6.3 g/dL (6.6-8.7)
[2024-11-11 06:00] LABS: Procalcitonin 0.04 ng/mL (0-0.5)
[2024-11-11] MEDS: piperacillin-tazobactam 3.375 GM in sodium chloride 0.9% (plus) 50 ML IV ×3 (06:30→22:45)
[2024-11-11] MEDS: nicotine 21 mg Patch 1 PATCH TRANSDERMA (06:39)
--- NOTE | 2024-11-11 06:48 | P.PN_ITS ---
Subjective 2 Subjective: Patient doing okay this morning, still has some pain in the epigastrium region that is slightly improved from yesterday. I discussed findings of EGD he shows understanding. Vitals/I&O/Wt Last Vital Signs Temp 98.1 F 11/11/24 03:30 Pulse 63 11/11/24 03:30 Resp 18 11/11/24 06:30 BP 110/72 11/11/24 03:30 Pulse Ox 97 11/11/24 03:30 O2 Del Method Room Air 11/11/24 03:30 11/10/24 11/10/24 11/11/24 14:59 22:59 06:59 Intake Total 1050 / 1050 1408 / 2458 1050 / 3508 Balance 1050 / 1050 1408 / 2458 1050 / 3508 Weight last 48 hrs Weight 171 lb 5 oz Weight 169 lb 4.8 oz Weight 165 lb Weight 165 lb Physical Exam 2 GI: OTHER: Abdomen is soft, there is some mild to moderate tenderness in the epigastrium. Nondistended. Data 11/11/24 04:59 11/11/24 04:59 Micro: Microbiology 11/09/24 16:50 Blood Culture - Preliminary Blood NEGATIVE TO DATE 11/09/24 16:58 Blood Culture - Preliminary Blood NEGATIVE TO DATE A&P Assessment and plan (1) Duodenitis: (2) Alcohol withdrawal: (3) Pancreatitis: Qualifiers: Acute pancreatitis complication: no infection or necrosis Chronicity: a cute Pancreatitis type: alcohol induced Qualified Code(s): K85.20 - Alcohol induced acute pancreatitis without necrosis or infection Plan Patient showing good progression, he can follow-up with me in 2 weeks to total of about the results of the biopsies. We can advance to a GI soft diet today to test tolerance. Patient will need to continue twice a day pantoprazole and 4 times a day Carafate liquid for the next 4 weeks. He will need to abstain from alcohol intake. Will probably recommend that we complete a 7-day course of antibiotics due to the significant periduodenal inflammation. Patient shows understanding. Attestations 2 Medical Necessity Statement*: Per medical team. Coding Level of Care Code Acute Code for [facility] Diagnoses Duodenitis K29.80 Alcohol withdrawal F10.939 Pancreatitis K85.20 Acute pancreatitis complication: no infection or necrosis Chronicity: acute Pancreatitis type: alcohol induced
[2024-11-11] MEDS: multivitamin therapeutic Tablet 1 TAB PO (08:47)
[2024-11-11] MEDS: folic acid 1 mg Tablet PO (08:47)
[2024-11-11] MEDS: thiamine 100 mg Tablet PO (08:47)
[2024-11-11] MEDS: potassium chloride ER 20 mEq Tablet 40 MEQ PO (08:50)
--- NOTE | 2024-11-11 14:07 | P.PN_ITS ---
Subjective 2 Subjective: Patient was seen this morning, denies any fevers, no chills, no nausea, no vomiting, does have persistent abdominal pain, no diarrhea, Vitals/I&O/Wt Last Vital Signs Temp 98.3 F 11/11/24 12:00 Pulse 69 11/11/24 12:00 Resp 16 11/11/24 12:00 BP 132/84 11/11/24 12:00 Pulse Ox 97 11/11/24 12:00 O2 Del Method Room Air 11/11/24 12:00 11/10/24 11/11/24 11/11/24 22:59 06:59 14:59 Intake Total 1408 / 2458 1050 / 3508 1410 / 1410 Output Total 900 / 900 Balance 1408 / 2458 1050 / 3508 510 / 510 Weight last 48 hrs Weight 77.706 kg Weight 76.793 kg Weight 74.843 kg Physical Exam 2 Const: COMMON NORMALS: no acute distress and patient oriented x3 Resp: COMMON NORMALS: normal respiratory effort, No retractions, No use of accessory muscles and clear to auscultation bilaterally AUSCULTATION: clear to auscultation bilaterally Cardio: COMMON NORMALS: regular rate, regular rhythm, S1 normal heart sound present and S2 normal heart sound present RATE: regular rate RHYTHM: r egular rhythm HEART SOUNDS: S1 normal heart sound present and S2 normal heart sound present GI: COMMON NORMALS: Normal to inspection, nondistended, normoactive bowel sounds present and non-tender Extremity: COMMON NORMALS: no pedal edema Neuro: COMMON NORMALS: patient oriented x3 Psych: COMMON NORMALS: mental status grossly normal Data 11/11/24 04:59 11/11/24 04:59 Micro: Microbiology 11/09/24 16:50 Blood Culture - Preliminary Blood NEGATIVE TO DATE 11/09/24 16:58 Blood Culture - Preliminary Blood NEGATIVE TO DATE A&P Assessment and plan (1) Pancreatitis: Qualifiers: Acute pancreatitis complication: no infection or necrosis Chronicity: a cute Pancreatitis type: alcohol induced Qualified Code(s): K85.20 - Alcohol induced acute pancreatitis without necrosis or infection (2) Duodenitis: (3) Peptic ulcer disease: (4) Alcohol withdrawal: (5) Alcoholism: (6) Hypertriglyceridemia: Plan Concern for peptic ulcer disease, concerns for gastric/duodenal ulcer, duodenitis, gastritis CT/CT abdomen pelvis w con* [id number] IMPRESSION: 1. Severe inflammation to the gastric antrum and proximal duodenal segments with a questionable fluid collection in the duodenal wall (possible ulceration), again highly concerning for peptic ulcer disease. Gastroenterology consultation is recommended. 2. Mild contiguous inflammation to the pancreatic head hepatic flexure, and CBD. 3. Mild reactive ascites. -EGD showed significant antrum gastritis, significant duodenitis biopsies were taken Plan -General Surgery consulted -GI soft diet -De-escalate IV fluids -Protonix 40 IV twice daily -Carafate -Zosyn -Nausea control Zofran, Reglan Pancreatitis -Likely alcohol related -Triglycerides within normal range -IV fluids -GI soft -Protonix -Zosyn -Dilaudid for pain control -Nausea control Zofran, Reglan -Abdominal exams Hypertriglyceridemia- -triglycerides are reasonable Alcohol withdrawal, CIWA protocol Full code SCDs for DVT prophylax Lovenox relatively contraindicated given concerns for gastric/duodenal ulcer Plan for today de-escalate fluids, advance diet as tolerated pain control, Attestations 2 Medical Necessity Statement*: Patient requires hospitalization for pancreatitis, gastritis, duodenitis, alcohol drawl Diagnoses Pancreatitis K85.20 Acute pancreatitis complication: no infection or necrosis Chronicity: acute Pancreatitis type: alcohol induced Duodenitis K29.80 Peptic ulcer disease K27.9 Alcohol withdrawal F10.939 Alcoholism F10.20 Hypertriglyceridemia E78.1
[2024-11-11] MEDS: acetaminophen 325 mg Tablet 650 MG PO (19:51)
[2024-11-12 03:33] VITALS: BP 128/80; PULSE 53; RESP 16; TEMP 36.6; O2SAT 98
[2024-11-12] MEDS: sodium chloride 0.9% 1,000 ML 50 ML IV (03:49)
[2024-11-12] MEDS: pantoprazole 40 mg SDV IVP (03:51)
[2024-11-12] MEDS: sucralfate 1 gm/10 mL Oral Liq UDC PO ×2 (03:51→09:53)
[2024-11-12 06:03] LABS: Basophils % 0.4 %; Eosinophils # 0.1 10^3/uL (0.0-0.8); Eosinophils % 2.3 %; Hematocrit 38.3 % (37-53); Lymphocytes # 1.4 10^3/uL (0.8-4.8); Lymphocytes % 27.5 %; Mean Corpuscular Hemoglobin 31.8 pg (27-33); Mean Platelet Volume 9.9 fL (7.4-10.4); Monocytes # 0.6 10^3/uL (0.2-0.9); Monocytes % 10.7 %; Neutrophils # 3.01 10^3/uL (1.8-7.7); Neutrophils % 58.7 %; Nucleated Red Blood Cells % 0 %; Platelet Count 217 10^3/cmm (157-399); Red Blood Count 4.21 10^6/uL (3.85-5.65); Red Cell Distribution Width 11.4 % (12.1-15.1); White Blood Count 5.13 10^3/uL (3.29-11.43)
[2024-11-12 06:17] LABS: INR 0.99 (0.8-1.2)
[2024-11-12] MEDS: piperacillin-tazobactam 3.375 GM in sodium chloride 0.9% (plus) 50 ML IV (06:28)
[2024-11-12 06:29] VITALS: RESP 16
[2024-11-12] MEDS: HYDROmorphone 1 mg/mL INJ 1 mL 0.75 MG IVP (06:29)
[2024-11-12 06:31] LABS: Alanine Aminotransferase 21 U/L (0-41); Albumin Level 3.9 g/dL (3.5-5.2); Alkaline Phosphatase 87 U/L (40-130); Anion Gap 15.9 (5-19); Aspartate Amino Transferase 26 U/L (0-40); Blood Urea Nitrogen 6 mg/dL (6-20); C Reactive Protein 5.8 mg/L (0.0-4.9); Calcium 9.3 mg/dL (8.5-10.5); Carbon Dioxide 26 mmol/L (22-29); Chloride 103 mmol/L (98-107); Creatinine Clr Calc Pharmacy 146.8851; Globulin 2.8 g/dL (1.3-4.6); Glomerular Filtration Rate 113.5 mL/min (90-130); Glucose 93 mg/dL (65-115); Osmolality Calculated 289 mOsm/kg (285-295); Phosphorus 3.9 mg/dL (2.5-4.5); Potassium 3.9 mmol/L (3.5-5.1); Sodium 141 mmol/L (136-145); Total Bilirubin 0.6 mg/dL (0.15-1.2); Total Protein 6.7 g/dL (6.6-8.7)
[2024-11-12 06:32] LABS: Procalcitonin 0.04 ng/mL (0-0.5)
[2024-11-12 07:51] VITALS: BP 134/85; PULSE 61; RESP 18; TEMP 36.4; O2SAT 97
[2024-11-12] MEDS: folic acid 1 mg Tablet PO (08:21)
[2024-11-12] MEDS: multivitamin therapeutic Tablet 1 TAB PO (08:21)
[2024-11-12] MEDS: nicotine 21 mg Patch 1 PATCH TRANSDERMA (08:21)
[2024-11-12] MEDS: thiamine 100 mg Tablet PO (08:21)
--- NOTE | 2024-11-12 08:38 | P.PN_ITS ---
Subjective 2 Subjective: Excellent progression, tolerating diet, abdominal pain has improved. Vitals/I&O/Wt Last Vital Signs Temp 97.6 F 11/12/24 07:51 Pulse 61 11/12/24 07:51 Resp 18 11/12/24 07:51 BP 134/85 11/12/24 07:51 Pulse Ox 97 11/12/24 07:51 O2 Del Method Room Air 11/12/24 07:51 11/11/24 11/12/24 11/12/24 22:59 06:59 14:59 Intake Total 651.667 / 2421.667 928.333 / 3350.000 480 / 480 Output Total 500 / 1800 200 / 2000 Balance 151.667 / 621.667 728.333 / 1350.000 480 / 480 Weight last 48 hrs Weight 167 lb 4.8 oz Weight 171 lb 5 oz Physical Exam 2 GI: OTHER: Abdomen is soft with minimal epigastric tenderness and nondistended. Data 11/12/24 05:11 11/12/24 05:11 A&P Assessment and plan (1) Duodenitis: Plan Cleared for discharge from the general surgery standpoint, can continue GI soft diet I will follow-up in 2 to 4 weeks to discuss results of pathology. He should continue twice a day PPI and 4 times a day Carafate liquid. All other care per medical team. Attestations 2 Medical Necessity Statement*: Per medical team Coding Level of Care Code Acute Code for [facility] Diagnoses Duodenitis K29.80
--- NOTE | 2024-11-12 10:31 | PM.DCS ---
Discharge Providers Date of Admission: 11/09/24 18:09 Date of Discharge: November 12, 2024 Attending Provider at Admission: Marcial Partida MD Attending Provider at Discharge: Marcial Partida MD Primary Care Provider: LAZARO Le Diagnoses at Discharge Discharge Diagnosis (1) Duodenitis: Status: Acute Reason for Visit Reason for Visit: severe upper abd pain Hospital Course Hospital Course Patrick Gracia is a 29 year old male with a past medical history of acute pancreatitis, hypertriglyceridemia induced pancreatitis, alcoholism, nausea, vomiting, abdominal pain, diarrhea. Patient since June 2023, has had 2 hospitalizations for acute pancreatitis, both hypertriglyceridemia induced pancreatitis requiring insulin drip. He in addition has had 5 ER visits in the last year for abdominal pain.Patient was seen in the emergency room on 06/01/2025, for abdominal pain, with concerns for alcoholism, concern for withdrawals, imaging at that time showed concerns for possible peptic ulcer disease, he was supposed to follow-up with general surgery as outpatient for EGD, managed on Protonix. And Carafate. He tells me that since then he continues to have abdominal pain, nausea, vomiting, diarrhea reports drinking up to 5 beers a day, no other alcohol use, he does report vaping, does report using cigarettes, he denies current drug use but has reported drug abuse in the past. He denies any hemoptysis or hematemesis or bloody or black tarry stools. Or coffee-ground emesis. No family history of gastric ulcers, for his hypertriglyceridemia he is not on any medications he has not followed up with primary care provider or endocrinology. In the emergency room, he was diagnosed with severe inflammation of the gastric And proximal duodenum segments highly concerning for peptic ulcer disease, fluid collection 1.8 x 1.6 cm in the pancreas duodenal groove. Mild contiguous inflammation to the pancreatic head hepatic flexure and CBD. Mild reactive ascites. Lipase was 180. General surgery has been consulted, plans on EGD tomorrow morning. Concerns for pancreatitis, has been given Protonix, Zofran, pain control. Discussed with ER provider will get a triglyceride level, if triglycerides are over 500, will likely require ICU admission for insulin drip, Patient was admitted to [facility] for nausea, vomiting, with pancreatitis, duodenitis, gastritis, alcohol withdrawal. Received IV fluid, bowel rest, pain control, IV antibiotics, general surgery was consulted. Overall patient's clinical condition improved, he will be discharged on a GI soft diet/low-fat, advised to abstain from alcohol, morbidity and mortality discussed, discharged on p.o. antibiotics, with instructions to follow-up with primary care provider as outpatient. I have also discharged home on hydrocodone for pain control and abdominal pain, he is to use hydrocodone sparingly, do not drive or operate machinery or drink while taking medication. Concern for peptic ulcer disease, concerns for gastric/duodenal ulcer, duodenitis, gastritis CT/CT abdomen pelvis w con* [id number] IMPRESSION: 1. Severe inflammation to the gastric antrum and proximal duodenal segments with a questionable fluid collection in the duodenal wall (possible ulceration), again highly concerning for peptic ulcer disease. Gastroenterology consultation is recommended. 2. Mild contiguous inflammation to the pancreatic head hepatic flexure, and CBD. 3. Mild reactive ascites. -EGD showed significant antrum gastritis, significant duodenitis biopsies were taken -Will be discharged on Protonix, Carafate, follow-up with general surgery for biopsy results For hypertriglyceridemia, discharged with fenofibrate with a close follow-up with Dr. Louie as outpatient For alcoholism, monitor for alcohol withdrawal, I have offered inpatient rehab however patient is declined, he will follow-up with outpatient alcohol rehab programs, advised to abstain from alcohol, morbidity mortality discussed, do not drink and drive. Patient voiced understanding, all questions answered, agreed to proceed Physical Exam Const: COMMON NORMALS: no acute distress and patient oriented x3 Resp: COMMON NORMALS: normal respiratory effort, No retractions, No use of accessory muscles and clear to auscultation bilaterally AUSCULTATION: clear to auscultation bilaterally Cardio: COMMON NORMALS: regular rate, regular rhythm, S1 normal heart sound present and S2 normal heart sound present RATE: regular rate RHYTHM: regular rhythm HEART SOUNDS: S1 normal heart sound present and S2 normal heart sound present GI: COMMON NORMALS: Normal to inspection, nondistended, normoactive bowel sounds present and non-tender Extremity: COMMON NORMALS: no pedal edema Neuro: COMMON NORMALS: patient oriented x3 Psych: COMMON NORMALS: mental status grossly normal Discharge Data Studies Completed and Pending Completed Studies During Hospitalization Category Date Time Status CT abdomen pelvis w con* [id number] Stat Cat Scan 11/09/24 14:32 Completed Pending at discharge Category Date Time Status Blood Culture Stat Lab 11/09/24 16:50 Results Pathology: Surgical [PTH] Routine Pth 11/10/24 12:09 Received Radiology Impressions Abdomen/Pelvis CT 11/09/24 14:32 IMPRESSION: 1. Severe inflammation to the gastric antrum and proximal duodenal segments with a questionable fluid collection in the duodenal wall (possible ulceration), again highly concerning for peptic ulcer disease. Gastroenterology consultation is recommended. 2. Mild contiguous inflammation to the pancreatic head hepatic flexure, and CBD. 3. Mild reactive ascites. ADDENDUM: 11/09/24 1526 ADDENDUM: Please note that groove pancreatitis is also in the differential diagnosis. Comments: THIS REPORT CONTAINS FINDINGS THAT MAY BE CRITICAL TO PATIENT CARE. The findings were verbally communicated via telephone conference with OLIVERIO LEYVA at 3:24 PM [employer] ADMINISTRATOR on 11/09/2024. The findings were acknowledged and understood. Laboratory Results WBC 5.13 10^3/uL (3.29-11.43) 11/12/24 05:11 RBC 4.21 10^6/uL (3.85-5.65) 11/12/24 05:11 Hgb 13.40 g/dL (11.27-16.99) 11/12/24 05:11 Hct 38.3 % (37-53) 11/12/24 05:11 MCV 91.0 fl (82-101) 11/12/24 05:11 MCH 31.8 pg (27-33) 11/12/24 05:11 MCHC 35.0 g/dL (30-55) 11/12/24 05:11 RDW 11.4 % (12.1-15.1) L 11/12/24 05:11 Plt Count 217 10^3/cmm (157-399) 11/12/24 05:11 MPV 9.9 fL (7.4-10.4) 11/12/24 05:11 Neut % (Auto) 58.7 % 11/12/24 05:11 Lymph % (Auto) 27.5 % 11/12/24 05:11 [place] % (Auto) 10.7 % 11/12/24 05:11 Eos % (Auto) 2.3 % 11/12/24 05:11 Baso % (Auto) 0.4 % 11/12/24 05:11 Neut # (Auto) 3.01 10^3/uL (1.8-7.7) 11/12/24 05:11 Lymph # (Auto) 1.4 10^3/uL (0.8-4.8) 11/12/24 05:11 [place] # (Auto) 0.6 10^3/uL (0.2-0.9) 11/12/24 05:11 Eos # (Auto) 0.1 10^3/uL (0.0-0.8) 11/12/24 05:11 Baso # (Auto) 0.0 10^3/uL (0.0-0.1) 11/12/24 05:11 Nucleated RBC % (auto) 0 % 11/12/24 05:11 Nucleated RBCs # 0.0 /100WBC 11/12/24 05:11 PT 13.80 SECONDS (12.1-14.9) 11/12/24 05:11 INR 0.99 (0.8-1.2) 11/12/24 05:11 Sodium 141 mmol/L (136-145) 11/12/24 05:11 Potassium 3.9 mmol/L (3.5-5.1) 11/12/24 05:11 Chloride 103 mmol/L (98-107) 11/12/24 05:11 Carbon Dioxide 26 mmol/L (22-29) 11/12/24 05:11 Anion Gap 15.9 (5-19) 11/12/24 05:11 BUN 6 mg/dL (6-20) 11/12/24 05:11 Creatinine 0.8 mg/dL (0.7-1.2) 11/12/24 05:11 GFR Calculation 113.5 mL/min (90-130) 11/12/24 05:11 Glucose 93 mg/dL (65-115) 11/12/24 05:11 Estimat Average Glucose 100 11/09/24 13:55 Hemoglobin A1c 5.1 % (4.0-6.0) 11/09/24 13:55 Calculated Osmolality 289 mOsm/kg (285-295) 11/12/24 05:11 Lactic Acid 1.0 mmol/L (0.5-2.2) 11/09/24 13:55 Calcium 9.3 mg/dL (8.5-10.5) 11/12/24 05:11 Phosphorus 3.9 mg/dL (2.5-4.5) 11/12/24 05:11 Magnesium 2.0 mg/dL (1.7-2.3) 11/12/24 05:11 Total Bilirubin 0.6 mg/dL (0.15-1.2) 11/12/24 05:11 GGT 227 U/L (8-61) H 11/09/24 13:55 AST 26 U/L (0-40) 11/12/24 05:11 ALT 21 U/L (0-41) 11/12/24 05:11 Alkaline Phosphatase 87 U/L (40-130) 11/12/24 05:11 Ammonia 35 umol/L (16-60) 11/09/24 16:58 C-Reactive Protein 5.8 mg/L (0.0-4.9) H 11/12/24 05:11 Total Protein 6.7 g/dL (6.6-8.7) 11/12/24 05:11 Albumin 3.9 g/dL (3.5-5.2) 11/12/24 05:11 Globulin 2.8 g/dL (1.3-4.6) 11/12/24 05:11 Triglycerides 133 mg/dL (0-150) 11/10/24 04:53 Cholesterol 174 mg/dL (0-200) 11/10/24 04:53 LDL Cholesterol, Calc 101 mg/dL (50-129) 11/10/24 04:53 HDL Cholesterol 46 mg/dL (60-100) L 11/10/24 04:53 LDL/HDL Ratio 2.20 RATIO (0.00-3.22) 11/10/24 04:53 Cholesterol/HDL Ratio 3.78 mg/dL (1.0-5.00) 11/10/24 04:53 Lipase 180 U/L (13-60) H 11/09/24 13:55 Procalcitonin 0.04 ng/mL (0-0.5) 11/12/24 05:11 Urine Color Yellow (Yellow) 11/09/24 22:40 Urine Appearance Clear (CLEAR) 11/09/24 22:40 Urine pH 5.5 (5-7) 11/09/24 22:40 Ur Specific [place] 1.066 (1.005-1.030) H 11/09/24 22:40 Urine Protein Trace (Negative) A 11/09/24 22:40 Urine Glucose (UA) Negative (Normal) 11/09/24 22:40 Urine Ketones Negative (Negative) 11/09/24 22:40 Urine Blood Negative (Negative) 11/09/24 22:40 Urine Nitrate Negative (Negative) 11/09/24 22:40 Urine Bilirubin Negative (Negative) 11/09/24 22:40 Prot Sulfosalicylic Acd Cancelled 11/09/24 19:45 Urine Urobilinogen 1.0 mg/dL (Negative) 11/09/24 22:40 Ur Leukocyte Esterase Negative (Negative) 11/09/24 22:40 Urine RBC 0-2 /hpf (0-2) 11/09/24 22:40 Urine WBC 0-5 /hpf (0-5) 11/09/24 22:40 Ur Squamous Epith Cells 0-5 /hpf (0-5) 11/09/24 22:40 Ur Transition Epith Cell Cancelled 11/09/24 19:45 Ur Renal Epithelial Cell Cancelled 11/09/24 19:45 Calcium Oxalate Crystal Cancelled 11/09/24 19:45 Uric Acid Crystals Cancelled 11/09/24 19:45 Triple Phos Crystals Cancelled 11/09/24 19:45 Other Crystals Cancelled 11/09/24 19:45 Amorphous Sediment Not Reportable 11/09/24 22:40 Urine Bacteria None seen /hpf (NONE) 11/09/24 22:40 Hyaline Casts 0-4 /lpf H 11/09/24 22:40 Fine Granular Casts Cancelled 11/09/24 19:45 Coarse Granular Casts Cancelled 11/09/24 19:45 RBC Casts Cancelled 11/09/24 19:45 Other Casts Cancelled 11/09/24 19:45 Urine Mucus Cancelled 11/09/24 19:45 Urine Trichomonas Cancelled 11/09/24 19:45 Urine Yeast Cancelled 11/09/24 19:45 Urine Sperm Cancelled 11/09/24 19:45 Ur Oval Fat Bodies Cancelled 11/09/24 19:45 Urine Opiates Screen Positive ng/mL (Negative) H 11/09/24 22:40 Ur Barbiturates Screen Negative ng/mL (Negative) 11/09/24 22:40 Ur Phencyclidine Scrn Negative ng/mL (Negative) 11/09/24 22:40 Ur Amphetamines Screen Negative ng/mL (Negative) 11/09/24 22:40 U Benzodiazepines Scrn Negative ng/mL (Negative) 11/09/24 22:40 Urine Cocaine Screen Negative ng/mL (Negative) 11/09/24 22:40 U Marijuana (THC) Screen Positive ng/mL (Negative) H 11/09/24 22:40 Ethyl Alcohol < 10 mg/dL (0-10) 11/09/24 13:55 Serum Ketones Negative (Negative) 11/09/24 16:30 Vitals Last Vital Signs Temp 97.6 F 11/12/24 07:51 Pulse 61 11/12/24 07:51 Resp 18 11/12/24 07:51 BP 134/85 11/12/24 07:51 Pulse Ox 97 11/12/24 07:51 O2 Del Method Room Air 11/12/24 07:51 Discharge Plan Discharge Patient Disposition: Home Condition: Stable Prescriptions: New multivitamin with folic acid [Thera] 400 mcg Tablet 1 tab PO DAILY 30 Days Qty: 30 0RF pantoprazole [Protonix] 40 mg tablet,delayed release (DR/EC) 40 mg PO BID 30 Days Qty: 60 0RF amoxicillin-pot clavulanate 875-125 mg tablet 1 tab PO BID 5 Days Qty: 10 0RF fenofibrate 50 mg capsule 50 mg PO DAILY 30 Days Qty: 30 0RF thiamine mononitrate (vit B1) [Vitamin B-1 (mononitrate)] 100 mg Tablet 100 mg PO DAILY 30 Days Qty: 30 0RF hydrocodone-acetaminophen 5-325 mg tablet 1 tab PO BID PRN (Reason: pain) 3 Days Qty: 6 0RF Continued buspirone 10 mg tablet 10 mg PO TID Changed sucralfate [Carafate] 100 mg/mL suspension 1 g PO Q6H 30 Days Qty: 1120 0RF Discharge Orders: Discharge Order (Routine); Ordered 11/12/24 Ordered By: Marcial Partida Referrals: Eric Castanon MD [Physician] - 2 weeks Miller Louie MD [Physician] - 2 weeks (hypertriyglycedemia) Katlin Sheppard FNP [Primary Care Provider] - Discharge Diet: Low Fat and GI Soft Discharge Activity: Resume usual activity Patient Instructions: Pancreatitis (DC), Abuse of Alcohol (DC), Alcohol Withdrawal (DC), Polysubstance Use Disorder (GEN), Hyperlipidemia (DC), GI Post Discharge Instructions w/ Anesthesia, Opioid Safety Activity Restrictions/Additional Instructions: - Please stop drinking alcohol -Do not drink and drive -Please avoid any other substance abuse, -Please stop smoking -Please hydrate well drink plenty of electrolyte balanced fluids -Slowly advance diet from clear liquid diet, GI soft low-fat diet -I have discharged you on hydrocodone please use sparingly for pain, do not drive or operate heavy machinery or drink while taking medication -Please use Protonix and Carafate as prescribed -For your hypertriglyceridemia please use fenofibrate -Follow-up with general surgery -Follow-up with primary care -Follow-up with Dr. Louie for hypertriglyceridemia in 2 weeks Discharge Attestations Time Spent in Discharge Care*: greater than 30 min Time Spent in Smoking Cessation: more than 10 minutes Morbidity and mortality associate with vaping discussed, abstain from vaping Discussed abstaining from any drug use, morbidity and mortality discussed Quality Metrics Clinical Quality Measures [ No reported AMI, CVA or VTE this stay] Coding Level of Care Code 75739 Total time (in minutes) for Discharge: 45 Diagnoses Duodenitis K29.80
[2024-11-12 11:42] VITALS: BP 134/85; PULSE 61; RESP 18; TEMP 36.4; O2SAT 97
== END 2024-11-12 11:44 | disposition home or self-care (01) | DRG 439 ==
LOC: ER 16:04 → MEDSURG 18:09
PROVIDERS: Emergency Medicine; Surgery; Admitting Provider Family Medicine; Emergency Provider Family Medicine; PCP Registered Nurse; Visit Provider Family Medicine
PROC: 0DJ08ZZ Inspection of Upper Intestinal Tract, Via Natural or Artificial Opening Endoscopic (ICD-10-PCS; principal; 2024-11-10 13:15)
DX: K85.20 Alcohol induced acute pancreatitis without necrosis or infection (principal); F10.139 Alcohol abuse with withdrawal, unspecified; K29.80 Duodenitis without bleeding; E78.1 Pure hyperglyceridemia; K29.70 Gastritis, unspecified, without bleeding
CPT/HCPCS: 36415; 43239; 74177; 80053; 80061; 80306; 80307; 81001; 82009; 82140; 82977; 83036; 83605; 83690; 83735; 84100; 84145; 84478; 85025; 85610; 86140; 87040; 88305; 94664; 96365; 96372; 96375; 99285; J1171; J2270; J2405; J2470; J2543; J2704; J3411; J3490; J7030

== ENCOUNTER 2024-11-22 10:26 | Emergency (ER) | payer BC, MEDICAID, SELFPAY ==
[2024-11-22] VITALS (8 sets, daily range): BP systolic 131–146; BP diastolic 87–105; PULSE 75–107; RESP 16–18; TEMP 36.7; O2SAT 93–98; BMI 22.4
[2024-11-22 11:02] LABS: Basophils % 0.1 %; Eosinophils % 0.1 %; Lymphocytes # 1.1 10^3/uL (0.8-4.8); Lymphocytes % 13.9 %; Mean Corpuscular HGB Conc 34.4 g/dL (30-55); Mean Corpuscular Hemoglobin 31.6 pg (27-33); Mean Corpuscular Volume 91.8 fl (82-101); Mean Platelet Volume 9.2 fL (7.4-10.4); Monocytes # 0.3 10^3/uL (0.2-0.9); Monocytes % 3.6 %; Neutrophils # 6.33 10^3/uL (1.8-7.7); Nucleated Red Blood Cells % 0 %; Platelet Count 333 10^3/cmm (157-399); Red Cell Distribution Width 11.4 % (12.1-15.1); White Blood Count 7.72 10^3/uL (3.29-11.43)
[2024-11-22 11:22] LABS: Alanine Aminotransferase 22 U/L (0-41); Alkaline Phosphatase 95 U/L (40-130); Anion Gap 16.8 (5-19); Aspartate Amino Transferase 21 U/L (0-40); Blood Urea Nitrogen 8 mg/dL (6-20); Carbon Dioxide 26 mmol/L (22-29); Chloride 101 mmol/L (98-107); Creatinine Clr Calc Pharmacy 166.9582; Globulin 3.5 g/dL (1.3-4.6); Glomerular Filtration Rate 132.4 mL/min (90-130); Glucose 129 mg/dL (65-115); Lipase 94 U/L (13-60); Osmolality Calculated 290 mOsm/kg (285-295); Potassium 3.8 mmol/L (3.5-5.1); Sodium 140 mmol/L (136-145); Total Bilirubin 0.8 mg/dL (0.15-1.2); Total Protein 8.5 g/dL (6.6-8.7)
--- NOTE | 2024-11-22 13:27 | W.ED.ABDPA2 ---
Documented by User: GIANNA Murphy 11/22/24 17:03 HPI - Abdominal Pain General: Chief Complaint: Abdominal Pain Stated Complaint: upper R abd pain Time Seen by Provider: 11/22/24 13:21 Source: patient and family Mode of arrival: ambulatory Limitations: no limitations History of Present Illness: Patient is a 29-year-old male with a history of pancreatitis, gastritis, duodenitis, chronic alcohol abuse here for complaints of upper abdominal pain that he states feels identical to previous pancreatitis episodes. Patient was recently admitted to the hospital and discharged on 11/10. He underwent EGD imaging by Dr. Castanon and was placed on Protonix and Carafate after he was found to have gastritis/duodenitis. Patient states he does have a follow-up appointment with general surgery tomorrow as well as primary care on . Patient states he relapsed with his alcohol use on and drank 6 shots of hard liquor. He began experiencing abdominal pain on Friday that has persisted. He has had episodes of vomiting. He has been compliant on his Protonix and Carafate. No further alcohol use since . MD elicited complaint: abdominal pain Pertinent past history: gastritis and other (pancreatitis ) Onset (ago): day(s) Pain Consistency: constant Location: Epigastric, LUQ and RUQ Severity: severe Quality: stabbing and sharp Radiation: none Migration to: no migration Exacerbating factors: eating Relieving factors: nothing Associated Symptoms: Reports nausea and vomiting; Denies chills, diarrhea, dysuria, fever(s) and hematemesis Related Data Home Medications ?Medication ?Instructions ?Recorded ?Confirmed buspirone 10 mg tablet 10 mg PO TID 05/11/24 11/22/24 fenofibrate 54 mg tablet 54 mg PO DAILY 11/22/24 11/22/24 Previous Rx's ?Medication ?Instructions ?Recorded multivitamin with folic acid 400 1 tab PO DAILY 30 days #30 tabs 11/12/24 mcg tablet (Thera) pantoprazole 40 mg tablet,delayed 40 mg PO BID 30 days #60 tabs 11/12/24 release (Protonix) sucralfate 100 mg/mL oral 1 g (10 mL) PO Q6H 30 days #1,120 11/12/24 suspension (Carafate) mL thiamine mononitrate (vit B1) 100 100 mg PO DAILY 30 days #30 tabs 11/12/24 mg tablet (Vitamin B-1 (mononitrate)) hydrocodone 5 mg-acetaminophen 325 1 tab PO Q6H PRN pain #14 tabs 11/22/24 mg tablet [id number] 1 cap PO TID #90 caps 11/22/24 36,000-114,000-180,000 unit capsule,delay rel (Creon) ondansetron 4 mg disintegrating 4 mg PO Q8H PRN nausea and 11/22/24 tablet vomiting #14 tabs Allergies Allergy/AdvReac Type Severity Reaction Status Date / Time No Known Allergies Allergy Verified 11/09/24 12:25 Review of Systems Const: Denies: fever(s), chills, body aches, fatigue or malaise Card: Denies: chest pain Resp: Denies: dyspnea GI: Reports: abdominal pain, nausea and vomiting; Denies: hematemesis or diarrhea : Denies: flank pain, difficulty urinating, dysuria or oliguria Musc: Denies: neck pain, back pain, extremity pain, extremity swelling, joint swelling or joint redness Skin/Breast: Denies: rash Neuro: Denies: headache(s), numbness in extremities, weakness in extremities, sensory changes or dizziness PFSH ED PFSH: Medical History Hypertriglyceridemia Transaminitis Alcoholism Acute pancreatitis Family History Other Cancer Dementia Social History Smoking and tobacco/nicotine status: unknown if used tobacco/nicotine Alcohol intake: current Substance/Drug Use: never Physical Exam Const: COMMON NORMALS: no acute distress, average body habitus, patient oriented x3, no limitations, healthy appearing, alert and well nourished GENERAL APPEARANCE: cooperative ORIENTATION/CONSCIOUSNESS: Yes awake, Yes oriented to person, Yes oriented to place and Yes oriented to time Neck/C-Spine: COMMON NORMALS: full ROM, no lymphadenopathy and no meningeal signs GENERAL: Yes normal visual inspection Resp: COMMON NORMALS: normal respiratory effort and clear to auscultation bilaterally AUSCULTATION: clear to auscultation bilaterally Cardio: COMMON NORMALS: regular rate and regular rhythm RATE: regular rate RHYTHM: regular rhythm GI: COMMON NORMALS: Normal to inspection, nondistended, normoactive bowel sounds present, Soft to palpation, No hepatosplenomegaly present and no masses INSPECTION: Yes normal to inspection AUSCULTATION: Yes normoactive bowel sounds PALPATION: Yes Soft to palpation, Yes Tenderness to palpation present (GI) (throughout upper abdomen ), No Guarding due to palpation present (GI), No Rigid due to palpation and Yes No hepatosplenomegaly present : COMMON NORMALS: Yes no CVA tenderness BLADDER/KIDNEY EXAM: Yes no CVA tenderness Back/Pelvis: COMMON NORMALS: no CVA tenderness and thoracic and lumbar spine normal to inspection Extremity: GENERAL: Yes normal exam except as noted Neuro: DOMINGA COMA SCALE: document GCS findings [place] coma scale eye opening: Spontaneous [place] coma scale verbal response: Orientated [place] coma scale motor response: [place] commands Dom[place] coma scale total score: 15 COMMON NORMALS: patient oriented x3 SENSORIUM/ORIENTATION: Yes alert, Yes oriented to person, Yes oriented to place and Yes oriented to time MENINGEAL SIGNS: Yes no meningeal signs Skin: COMMON NORMALS: no rashes or lesions noted GENERAL SKIN EXAM: no rashes or lesions noted Course Vital Signs: Vital signs: Vital Signs Temperature 98.1 F 11/22/24 11:01 Pulse Rate 94 11/22/24 15:38 Respiratory Rate 18 11/22/24 15:38 Blood Pressure 135/91 11/22/24 16:03 Pulse Oximetry 97 11/22/24 16:41 Oxygen Delivery Me thod Room Air 11/22/24 11:01 MDM - Abdominal Pain Medical Decision Making Patient here for upper abdominal pain, nausea, vomiting. History of alcoholic and hypertriglyceridemia pancreatitis, gastritis, and duodenitis. He did relapse on alcohol recently. He arrives in no acute distress. Vital signs are stable. Blood work overall is unremarkable. His electrolytes are normal. Lipase is 94. Patient was given IV pain medications and nausea medications without much improvement of his pain. He is hesitant about going home and is requesting admission. I did speak to Dr. Potts. We currently do not have any beds in the hospital. Question whether he would meet inpatient criteria. Dr. Potts is graciously willing to come evaluate patient and speak to him as well as family member in the room and come up with a plan. He does have follow-up with general surgeon tomorrow as well as PCP follow-up on . Dr. Childers did recommend a dose of IV protonix, XR abdomen to evaluate for free air-this was normal HOWEVER radiologist commented on their intrepretation of CT scan on 11/09 and was concerned about a walled off duodenal perforation and recommended repeat CT scan if he continued to have pain. Spoke to hospitalist again who is recommending obtaining CT scan. This with no change. He will be allowed discharge with pain and nausea medications as well as pancreatic enzymes at the request of Dr. Daigle. He will follow-up with general surgery tomorrow. He has primary care follow-up on . Medical Records I reviewed the patient's medical records. Lab Data I reviewed the patient's lab results. 11/22/24 10:47 11/22/24 10:47 Labs/Radiology: Radiology Impressions Abdomen X-Ray 11/22/24 14:43 IMPRESSION: No acute abnormality identified. Previous CT scan of the abdomen and pelvis 11/09/2024 was reviewed. Highly suspicious for sealed off duodenal perforation with extensive inflammatory change in the antrum, duodenum, and ascending colon. As clinically warranted a repeat CT scan might be considered to exclude abscess formation in the interim if the patient has fever or white count or nonresolving abdominal pain. Abdomen/Pelvis CT 11/22/24 16:04 IMPRESSION: 1. Persistent gastroduodenitis/peptic ulcer disease, as described above. 2. Additional findings, as above. Laboratory Results WBC 7.72 10^3/uL (3.29-11.43) 11/22/24 10:47 RBC 4.90 10^6/uL (3.85-5.65) 11/22/24 10:47 Hgb 15.50 g/dL (11.27-16.99) 11/22/24 10:47 Hct 45.0 % (37-53) 11/22/24 10:47 MCV 91.8 fl (82-101) 11/22/24 10:47 MCH 31.6 pg (27-33) 11/22/24 10:47 MCHC 34.4 g/dL (30-55) 11/22/24 10:47 RDW 11.4 % (12.1-15.1) L 11/22/24 10:47 Plt Count 333 10^3/cmm (157-399) 11/22/24 10:47 MPV 9.2 fL (7.4-10.4) 11/22/24 10:47 Neut % (Auto) 82.0 % 11/22/24 10:47 Lymph % (Auto) 13.9 % 11/22/24 10:47 [place] % (Auto) 3.6 % 11/22/24 10:47 Eos % (Auto) 0.1 % 11/22/24 10:47 Baso % (Auto) 0.1 % 11/22/24 10:47 Neut # (Auto) 6.33 10^3/uL (1.8-7.7) 11/22/24 10:47 Lymph # (Auto) 1.1 10^3/uL (0.8-4.8) 11/22/24 10:47 [place] # (Auto) 0.3 10^3/uL (0.2-0.9) 11/22/24 10:47 Eos # (Auto) 0.0 10^3/uL (0.0-0.8) 11/22/24 10:47 Baso # (Auto) 0.0 10^3/uL (0.0-0.1) 11/22/24 10:47 Nucleated RBC % (auto) 0 % 11/22/24 10:47 Nucleated RBCs # 0.0 /100WBC 11/22/24 10:47 Sodium 140 mmol/L (136-145) 11/22/24 10:47 Potassium 3.8 mmol/L (3.5-5.1) 11/22/24 10:47 Chloride 101 mmol/L (98-107) 11/22/24 10:47 Carbon Dioxide 26 mmol/L (22-29) 11/22/24 10:47 Anion Gap 16.8 (5-19) 11/22/24 10:47 BUN 8 mg/dL (6-20) 11/22/24 10:47 Creatinine 0.7 mg/dL (0.7-1.2) 11/22/24 10:47 GFR Calculation 132.4 mL/min (90-130) H 11/22/24 10:47 Glucose 129 mg/dL (65-115) H 11/22/24 10:47 Calculated Osmolality 290 mOsm/kg (285-295) 11/22/24 10:47 Lactic Acid 0.8 mmol/L (0.5-2.2) 11/22/24 10:54 Calcium 10.0 mg/dL (8.5-10.5) 11/22/24 10:47 Total Bilirubin 0.8 mg/dL (0.15-1.2) 11/22/24 10:47 AST 21 U/L (0-40) 11/22/24 10:47 ALT 22 U/L (0-41) 11/22/24 10:47 Alkaline Phosphatase 95 U/L (40-130) 11/22/24 10:47 Total Protein 8.5 g/dL (6.6-8.7) 11/22/24 10:47 Albumin 5.0 g/dL (3.5-5.2) 11/22/24 10:47 Globulin 3.5 g/dL (1.3-4.6) 11/22/24 10:47 Lipase 94 U/L (13-60) H 11/22/24 10:47 Urine Color Dark yellow (Yellow) A 11/22/24 16:07 Urine Appearance Cloudy (CLEAR) A 11/22/24 16:07 Urine pH 5.5 (5-7) 11/22/24 16:07 Ur Specific [place] 1.031 (1.005-1.030) H 11/22/24 16:07 Urine Protein Trace (Negative) A 11/22/24 16:07 Urine Glucose (UA) Negative (Normal) 11/22/24 16:07 Urine Ketones 2+ (Negative) H 11/22/24 16:07 Urine Blood Negative (Negative) 11/22/24 16:07 Urine Nitrate Negative (Negative) 11/22/24 16:07 Urine Bilirubin 1+ (Negative) H 11/22/24 16:07 Urine Urobilinogen 1.0 mg/dL (Negative) 11/22/24 16:07 Ur Leukocyte Esterase Negative (Negative) 11/22/24 16:07 Urine RBC 3-5 /hpf (0-2) 11/22/24 16:07 Urine WBC 0-4 /hpf (0-5) H 11/22/24 16:07 Ur Squamous Epith Cells 0-4 /hpf (0-5) H 11/22/24 16:07 Calcium Oxalate Crystal 0-4 /hpf H 11/22/24 16:07 Amorphous Sediment Not Reportable 11/22/24 16:07 Urine Bacteria None /hpf (NONE) 11/22/24 16:07 Hyaline Casts 10-15 /lpf H 11/22/24 16:07 All radiology interpretation(s) finalized by discharge Discharge Plan Discharge Patient Disposition: Home Clinical Impression: Gastritis, Duodenitis, Pancreatitis Condition: Stable Prescriptions: [place] 36,000-114,000- 180,000 unit capsule,delayed release(DR/EC) 1 cap PO TID Qty: 90 0RF Rx Instructions: administer with meals and/or snacks hydrocodone-acetaminophen 5-325 mg tablet 1 tab PO Q6H PRN (Reason: pain) Qty: 14 0RF ondansetron 4 mg tablet,disintegrating 4 mg PO Q8H PRN (Reason: nausea and vomiting) Qty: 14 0RF No Action buspirone 10 mg tablet 10 mg PO TID multivitamin with folic acid [Thera] 400 mcg Tablet 1 tab PO DAILY 30 Days Qty: 30 0RF pantoprazole [Protonix] 40 mg tablet,delayed release (DR/EC) 40 mg PO BID 30 Days Qty: 60 0RF thiamine mononitrate (vit B1) [Vitamin B-1 (mononitrate)] 100 mg Tablet 100 mg PO DAILY 30 Days Qty: 30 0RF sucralfate [Carafate] 100 mg/mL suspension 1 g PO Q6H 30 Days Qty: 1120 0RF fenofibrate 54 mg tablet 54 mg PO DAILY Discharge Orders: Discharge ED (Routine); Ordered 11/22/24 Ordered By: Jasmin Nielson Referrals: Eric Castanon MD [Physician] - 11/23/24 Katlin Sheppard FNP [Primary Care Provider] - 1-3 days Discharge Diet: Low Cholesterol and Low Fat Patient Instructions: Opioid Safety, Pain Management Activity Restrictions/Additional Instructions: Abstain from any alcohol. Increase Protonix dose to 80 mg twice daily. Continue sucralfate. Follow-up with surgery for reassessment and follow-up on biopsy results. Continue fenofibrate, follow-up with your primary provider and with endocrinology for reassessment. If you are not able to provide a stool sample for C. difficile as discussed, this will need to be collected in the lab in case of persistent diarrhea. Pancreatic enzyme replacement is started due to fatty diarrhea. Follow-up with your primary provider and consider referral to gastroenterology with regards to pancreatitis. Risk of progression to chronic pancreatitis. As well as gastritis with duodenitis. Limited to clear liquid diet for now to start, but if tolerating, gradual advance to GI soft, bland diet, avoiding spicy or fatty foods. Discussed, seek medical attention in case of any worsening or new concerning symptoms. Print Language: American Coding Level of Care Code ED Bookie for Chg Fwd Documented by User: Delgado Potts MD 11/22/24 16:20 HPI - Abdominal Pain General: Chief Complaint: Abdominal Pain Stated Complaint: upper R abd pain Time Seen by Provider: 11/22/24 13:21 Related Data Home Medications ?Medication ?Instructions ?Recorded ?Confirmed buspirone 10 mg tablet 10 mg PO TID 05/11/24 11/22/24 fenofibrate 54 mg tablet 54 mg PO DAILY 11/22/24 11/22/24 Previous Rx's ?Medication ?Instructions ?Recorded multivitamin with folic acid 400 1 tab PO DAILY 30 days #30 tabs 11/12/24 mcg tablet (Thera) pantoprazole 40 mg tablet,delayed 40 mg PO BID 30 days #60 tabs 11/12/24 release (Protonix) sucralfate 100 mg/mL oral 1 g (10 mL) PO Q6H 30 days #1,120 11/12/24 suspension (Carafate) mL thiamine mononitrate (vit B1) 100 100 mg PO DAILY 30 days #30 tabs 11/12/24 mg tablet (Vitamin B-1 (mononitrate)) hydrocodone 5 mg-acetaminophen 325 1 tab PO Q6H PRN pain #14 tabs 11/22/24 mg tablet teqwig-vbfpzrfh-fikdfcn 1 cap PO TID #90 caps 11/22/24 36,000-114,000-180,000 unit capsule,delay rel (Creon) ondansetron 4 mg disintegrating 4 mg PO Q8H PRN nausea and 11/22/24 tablet vomiting #14 tabs Allergies Allergy/AdvReac Type Severity Reaction Status Date / Time No Known Allergies Allergy Verified 11/09/24 12:25 PFSH ED PFSH: Medical History Hypertriglyceridemia Transaminitis Alcoholism Acute pancreatitis Family History Other Cancer Dementia Social History Smoking and tobacco/nicotine status: unknown if used tobacco/nicotine Alcohol intake: current Substance/Drug Use: never Physical Exam Neuro: DOMINGA COMA SCALE: document GCS findings [place] coma scale total score: 15 Course Vital Signs: Vital signs: Vital Signs Temperature 98.1 F 11/22/24 11:01 Pulse Rate 94 11/22/24 15:38 Respiratory Rate 18 11/22/24 15:38 Blood Pressure 135/91 11/22/24 16:03 Pulse Oximetry 97 11/22/24 16:41 Oxygen Delivery Me thod Room Air 11/22/24 11:01 MDM - Abdominal Pain Lab Data 11/22/24 10:47 11/22/24 10:47 Labs/Radiology: Radiology Impressions Abdomen X-Ray 11/22/24 14:43 IMPRESSION: No acute abnormality identified. Previous CT scan of the abdomen and pelvis 11/09/2024 was reviewed. Highly suspicious for sealed off duodenal perforation with extensive inflammatory change in the antrum, duodenum, and ascending colon. As clinically warranted a repeat CT scan might be considered to exclude abscess formation in the interim if the patient has fever or white count or nonresolving abdominal pain. Abdomen/Pelvis CT 11/22/24 16:04 IMPRESSION: 1. Persistent gastroduodenitis/peptic ulcer disease, as described above. 2. Additional findings, as above. Laboratory Results WBC 7.72 10^3/uL (3.29-11.43) 11/22/24 10:47 RBC 4.90 10^6/uL (3.85-5.65) 11/22/24 10:47 Hgb 15.50 g/dL (11.27-16.99) 11/22/24 10:47 Hct 45.0 % (37-53) 11/22/24 10:47 MCV 91.8 fl (82-101) 11/22/24 10:47 MCH 31.6 pg (27-33) 11/22/24 10:47 MCHC 34.4 g/dL (30-55) 11/22/24 10:47 RDW 11.4 % (12.1-15.1) L 11/22/24 10:47 Plt Count 333 10^3/cmm (157-399) 11/22/24 10:47 MPV 9.2 fL (7.4-10.4) 11/22/24 10:47 Neut % (Auto) 82.0 % 11/22/24 10:47 Lymph % (Auto) 13.9 % 11/22/24 10:47 [place] % (Auto) 3.6 % 11/22/24 10:47 Eos % (Auto) 0.1 % 11/22/24 10:47 Baso % (Auto) 0.1 % 11/22/24 10:47 Neut # (Auto) 6.33 10^3/uL (1.8-7.7) 11/22/24 10:47 Lymph # (Auto) 1.1 10^3/uL (0.8-4.8) 11/22/24 10:47 [place] # (Auto) 0.3 10^3/uL (0.2-0.9) 11/22/24 10:47 Eos # (Auto) 0.0 10^3/uL (0.0-0.8) 11/22/24 10:47 Baso # (Auto) 0.0 10^3/uL (0.0-0.1) 11/22/24 10:47 Nucleated RBC % (auto) 0 % 11/22/24 10:47 Nucleated RBCs # 0.0 /100WBC 11/22/24 10:47 Sodium 140 mmol/L (136-145) 11/22/24 10:47 Potassium 3.8 mmol/L (3.5-5.1) 11/22/24 10:47 Chloride 101 mmol/L (98-107) 11/22/24 10:47 Carbon Dioxide 26 mmol/L (22-29) 11/22/24 10:47 Anion Gap 16.8 (5-19) 11/22/24 10:47 BUN 8 mg/dL (6-20) 11/22/24 10:47 Creatinine 0.7 mg/dL (0.7-1.2) 11/22/24 10:47 GFR Calculation 132.4 mL/min (90-130) H 11/22/24 10:47 Glucose 129 mg/dL (65-115) H 11/22/24 10:47 Calculated Osmolality 290 mOsm/kg (285-295) 11/22/24 10:47 Lactic Acid 0.8 mmol/L (0.5-2.2) 11/22/24 10:54 Calcium 10.0 mg/dL (8.5-10.5) 11/22/24 10:47 Total Bilirubin 0.8 mg/dL (0.15-1.2) 11/22/24 10:47 AST 21 U/L (0-40) 11/22/24 10:47 ALT 22 U/L (0-41) 11/22/24 10:47 Alkaline Phosphatase 95 U/L (40-130) 11/22/24 10:47 Total Protein 8.5 g/dL (6.6-8.7) 11/22/24 10:47 Albumin 5.0 g/dL (3.5-5.2) 11/22/24 10:47 Globulin 3.5 g/dL (1.3-4.6) 11/22/24 10:47 Lipase 94 U/L (13-60) H 11/22/24 10:47 Urine Color Dark yellow (Yellow) A 11/22/24 16:07 Urine Appearance Cloudy (CLEAR) A 11/22/24 16:07 Urine pH 5.5 (5-7) 11/22/24 16:07 Ur Specific [place] 1.031 (1.005-1.030) H 11/22/24 16:07 Urine Protein Trace (Negative) A 11/22/24 16:07 Urine Glucose (UA) Negative (Normal) 11/22/24 16:07 Urine Ketones 2+ (Negative) H 11/22/24 16:07 Urine Blood Negative (Negative) 11/22/24 16:07 Urine Nitrate Negative (Negative) 11/22/24 16:07 Urine Bilirubin 1+ (Negative) H 11/22/24 16:07 Urine Urobilinogen 1.0 mg/dL (Negative) 11/22/24 16:07 Ur Leukocyte Esterase Negative (Negative) 11/22/24 16:07 Urine RBC 3-5 /hpf (0-2) 11/22/24 16:07 Urine WBC 0-4 /hpf (0-5) H 11/22/24 16:07 Ur Squamous Epith Cells 0-4 /hpf (0-5) H 11/22/24 16:07 Calcium Oxalate Crystal 0-4 /hpf H 11/22/24 16:07 Amorphous Sediment Not Reportable 11/22/24 16:07 Urine Bacteria None /hpf (NONE) 11/22/24 16:07 Hyaline Casts 10-15 /lpf H 11/22/24 16:07 Discharge Plan Discharge Patient Disposition: Home Clinical Impression: Gastritis, Duodenitis, Pancreatitis Condition: Stable Prescriptions: [employer] 36,000-114,000- 180,000 unit capsule,delayed release(DR/EC) 1 cap PO TID Qty: 90 0RF Rx Instructions: administer with meals and/or snacks hydrocodone-acetaminophen 5-325 mg tablet 1 tab PO Q6H PRN (Reason: pain) Qty: 14 0RF ondansetron 4 mg tablet,disintegrating 4 mg PO Q8H PRN (Reason: nausea and vomiting) Qty: 14 0RF No Action buspirone 10 mg tablet 10 mg PO TID multivitamin with folic acid [Thera] 400 mcg Tablet 1 tab PO DAILY 30 Days Qty: 30 0RF pantoprazole [Protonix] 40 mg tablet,delayed release (DR/EC) 40 mg PO BID 30 Days Qty: 60 0RF thiamine mononitrate (vit B1) [Vitamin B-1 (mononitrate)] 100 mg Tablet 100 mg PO DAILY 30 Days Qty: 30 0RF sucralfate [Carafate] 100 mg/mL suspension 1 g PO Q6H 30 Days Qty: 1120 0RF fenofibrate 54 mg tablet 54 mg PO DAILY Discharge Orders: Discharge ED (Routine); Ordered 11/22/24 Ordered By: Jasmin Nielson Referrals: Eric Castanon MD [Physician] - 11/23/24 Katlin Sheppard FNP [Primary Care Provider] - 1-3 days Discharge Diet: Low Cholesterol and Low Fat Patient Instructions: Opioid Safety, Pain Management Activity Restrictions/Additional Instructions: Abstain from any alcohol. Increase Protonix dose to 80 mg twice daily. Continue sucralfate. Follow-up with surgery for reassessment and follow-up on biopsy results. Continue fenofibrate, follow-up with your primary provider and with endocrinology for reassessment. If you are not able to provide a stool sample for C. difficile as discussed, this will need to be collected in the lab in case of persistent diarrhea. Pancreatic enzyme replacement is started due to fatty diarrhea. Follow-up with your primary provider and consider referral to gastroenterology with regards to pancreatitis. Risk of progression to chronic pancreatitis. As well as gastritis with duodenitis. Limited to clear liquid diet for now to start, but if tolerating, gradual advance to GI soft, bland diet, avoiding spicy or fatty foods. Discussed, seek medical attention in case of any worsening or new concerning symptoms. Print Language: American Coding Level of Care Code ED Bookie for [place]
[2024-11-22] MEDS: lidocaine 2% viscous 15 ML, aluminum-mag hydrox-simethicon 30 ML, sucralfate oral liq 1 GM PO (13:40)
[2024-11-22] MEDS: ondansetron 2 mg/ML SDV 2 mL 4 MG IVP (13:54)
[2024-11-22] MEDS: sodium chloride 0.9% 1,000 ML 999 ML IV (13:54)
[2024-11-22] MEDS: HYDROMORPHONE HCL 0.5 MG/0.5 ML INJ 1 MG IVP ×2 (14:00→15:36)
--- NOTE | 2024-11-22 14:43 | XR_ITS ---
WS: [id number] XR abdomen 1V* [id number] REASON FOR EXAM: upright, check for free air FINDINGS: No free air or retroperitoneal air. Bowel gas pattern is unremarkable. No mass or organomegaly. No urinary tract calculi. XR/XR abdomen 1V* [id number] IMPRESSION: No acute abnormality identified. Previous CT scan of the abdomen and pelvis 11/09/2024 was reviewed. Highly suspi cious for sealed off duodenal perforation with extensive inflammatory change in the antrum, duodenum, and ascending colon. As clinically warranted a repeat CT scan might be considered to exclude abscess formation in the interim if the pa tient has fever or white count or nonresolving abdominal pain.
[2024-11-22 14:59] LABS: Lactic Sepsis W/Reflex 0.8 mmol/L (0.5-2.2)
[2024-11-22] MEDS: pantoprazole 40 mg SDV IVP (15:13)
--- NOTE | 2024-11-22 15:59 | PM.CONSULT ---
Providers/Reason For Consult Consulting Physician/Specialty*: Hospitalist Reason for Consult*: Epigastric pain Primary Care Provider: LAZARO Le History of Present Illness History of Present Illness Pleasant 29-year-old gentleman with history of alcohol use disorder, pancreatitis, recently hospitalized 11/09-11/12 with acute pancreatitis with lipase 180, extensive gastritis, duodenitis found on EGD on 11/10, treated with twice daily Protonix, sucralfate, hypertriglyceridemia received treatment with insulin, started on fenofibrate, counseled on abstaining from any alcohol consumption, with follow-up with primary provider and surgery as well as endocrinology. Hydrocodone for pain control. His follow-up with the surgeon is tomorrow in the morning. Stomach and duodenal biopsies pending. He started experiencing additional abdominal pain after he had a relapse with alcohol, then on Friday also had some [employer] foods which exacerbated the matter further.. He has been having epigastric pain with some radiation to the back. Since last discharge having some fatty diarrhea. Denies taking any NSAIDs. In ER he is afebrile, without leukocytosis. Lipase mildly elevated, but improved from prior at 94. Liver parameters unremarkable, normal T. bili, alk phos. Received a fluid infusion. Antiemetic, pain medication with hydromorphone. Pain is partially relieved with Dilaudid. Review of Systems Const: Denies: fever(s) or chills Eyes: Denies: change in vision ENMT: Denies: throat pain Card: Denies: chest pain, edema, pre-syncope or dyspnea on exertion Resp: Denies: dyspnea, productive cough, change in phlegm color or hemoptysis GI: Reports: abdominal pain, nausea and diarrhea; Denies: vomiting, constipation, hematochezia or melena : Denies: flank pain, difficulty urinating, urinary frequency or hematuria Musc: Denies: back pain, joint swelling or joint redness Skin/Breast: Denies: rash Neuro: Denies: headache(s) or confusion Medications/Allergies Home Medications ?Medication ?Instructions ?Recorded ?Confirmed ?Last Taken ?Type buspirone 10 mg tablet 10 mg PO TID 05/11/24 11/22/24 11/21/24 History multivitamin with folic acid 400 1 tab PO DAILY 30 days #30 tabs 11/12/24 11/22/2425 Rx mcg tablet (Thera) pantoprazole 40 mg tablet,delayed 40 mg PO BID 30 days #60 tabs 11/12/24 11/22/24 11/21/24 Rx release (Protonix) sucralfate 100 mg/mL oral 1 g (10 mL) PO Q6H 30 days #1,120 11/12/24 11/22/24 11/21/24 Rx suspension (Carafate) mL thiamine mononitrate (vit B1) 100 100 mg PO DAILY 30 days #30 tabs 11/12/24 11/22/24 11/21/24 Rx mg tablet (Vitamin B-1 (mononitrate)) fenofibrate 54 mg tablet 54 mg PO DAILY 11/22/24 11/22/24 11/21/24 History Allergies Allergy/AdvReac Type Severity Reaction Status Date / Time No Known Allergies Allergy Verified 11/09/24 12:25 PFSH Acute PFSH: Medical History Hypertriglyceridemia Transaminitis Alcoholism Acute pancreatitis Family History Other Cancer Dementia Social History Smoking and tobacco/nicotine status: unknown if used tobacco/nicotine Alcohol intake: current Substance/Drug Use: never Vitals/I&O/Wt Last Vital Signs Temp 98.1 F 11/22/24 11:01 Pulse 94 11/22/24 15:38 Resp 18 11/22/24 15:38 BP 146/87 11/22/24 15:38 Pulse Ox 98 11/22/24 15:38 O2 Del Method Room Air 11/22/24 11:01 11/22/24 11/22/24 11/22/24 06:59 14:59 22:59 Intake Total 1000 / 1000 Balance 1000 / 1000 Weight last 48 hrs Weight 74.843 kg Physical Exam Narrative: Accompanied by his mom. Const: COMMON NORMALS: patient oriented x3 and alert GENERAL APPEARANCE: cooperative ORIENTATION/CONSCIOUSNESS: Yes awake HENMT: COMMON NORMALS: oropharynx normal Neck/C-Spine: COMMON NORMALS: no JVD Resp: COMMON NORMALS: normal respiratory effort and clear to auscultation bilaterally AUSCULTATION: clear to auscultation bilaterally Cardio: COMMON NORMALS: no JVD, regular rhythm, S1 normal heart sound present, S2 normal heart sound present and No murmurs present (Cardio) RHYTHM: regular rhythm HEART SOUNDS: S1 normal heart sound present and S2 normal heart sound present GI: COMMON NORMALS: Normal to inspection, nondistended, normoactive bowel sounds present and Soft to palpation PALPATION: Yes Soft to palpation and Yes Tenderness to palpation present (GI) Details: other (Epigastric) Extremity: COMMON NORMALS: no joint enlargement and no pedal edema Neuro: COMMON NORMALS: patient oriented x3 and moves all extremities SENSORIUM/ORIENTATION: Yes alert Skin: COMMON NORMALS: no rashes or lesions noted GENERAL SKIN EXAM: no rashes or lesions noted Data 11/22/24 10:47 11/22/24 10:47 A&P Assessment and plan (1) Epigastric pain: Some epigastric pain started on after relapse with alcohol, worsened after [employer] foods on Friday, with some radiation to the back. Since last discharge also has been having some fatty stools. Extensive gastritis, duodenitis on last presentation. Additionally last admission acute pancreatitis, lipase 180. Reviewed vitals, CBC, CMP, lipase, prior to discharge note, ER provider note, discussed with ER provider, discussed with patient and his mother. Currently there is no indication of SIRS or sepsis. Does not fit criteria of acute pancreatitis. Has had exacerbation of abdominal pain after alcohol intake, as well as seasoned [employer] Bowl foods. Suspected flare of gastritis, duodenitis. Without evidence of acute pancreatitis at the moment, although unfortunately could have progressed to some chronic pancreatitis with fatty diarrhea since last discharge. Received some partial relief with IV Dilaudid treatment in ER. Antiemetic, received IV fluid infusion. Discussed consideration of options of hospitalization for observation, versus discharge home with close follow-up, he does have an appointment with his surgeon tomorrow, additionally has appointment with endocrinology and discussed follow-up with primary care provider. Discussed strict abstinence from any alcohol, he does not take any NSAIDs. Discussed avoiding spicy or fatty foods. He should continue treatment of hypertriglyceridemia. Abdominal x-ray is obtained to further assess for any perforation, on review no free air is noted; there was a fluid collection in the last CT imaging, and given persistent abdominal pain discussed with ER provider as per x-ray read, CT abdomen pelvis assessment is reasonable to exclude abscess, although less likely, or other serious acute intra-abdominal process. He otherwise if possible would prefer not to stay in hospital given current high caseload of influenza, coronavirus, RSV and other infections in the hospital. However, he understands to seek medical attention in case of any worsening or new concerning symptoms given significance of his recent conditions in case of recurrence or worsening. He knows to avoid alcohol, he is looking into outpatient rehabilitation. Knows to minimize and avoid fatty foods or season/spicy foods. Pancreatic enzyme replacement is provided for now given some symptoms of malabsorption, and he will further discuss and revisit with his primary provider and consider referral to gastroenterology which unfortunately is unavailable here. He will for now increase pantoprazole to 80 mg twice daily, continue sucralfate. Follow-up with surgery in office for reassessment of gastritis, duodenitis, biopsy results. In the meantime C. difficile is also requested given recent hospitalization, sulfate diarrhea. Plan Minimal dysuria: UA is also requested. Hypertriglyceridemia: Continue fenofibrate. Follow-up with endocrinology. PDMP PDMP Reviewed: Not Reviewed and High MDM includes amount and/or complexity of data reviewed/ordered [ previous or external records, resulted lab(s)/test(s), ordered lab(s)/test(s) and other healthcare professional discussion] and described risk of complication, morbidity or mortality of management as documented Diagnoses Epigastric pain R10.13
--- NOTE | 2024-11-22 16:04 | CTR_ITS ---
PROCEDURE INFORMATION: Exam: CT Abdomen And Pelvis With Contrast Exam date and time: 11/22/2024 4:23 PM Age: 29 years old Clinical indication: Abdominal pain; Epigastric; Additional info: See XR radiology read TECHNIQUE: Imaging protocol: Computed tomography of the abdomen and pelvis with contrast. Axial, coronal and sagittal reformatted images were created and reviewed. Radiation optimization: All CT scans at this facility use at least one of these dose optimization techniques: automated exposure control; mA and/or kV adjustment per patient size (includes targeted exams where dose is matched to clinical indication); or iterative reconstruction. Contrast material: OMNIPAQUE 350; Contrast volume: 100 ml; Contrast route: INTRAVENOUS (IV); COMPARISON: CT abdomen pelvis w con* [id number] 11/09/2024 2:52 PM RADIATION DOSE METRICS: Total DLP (mGy-cm): 426.63 FINDINGS: Liver: Unremarkable. Gallbladder and biliary ducts: No radiodense gallstones. No biliary ductal dilatation. Pancreas: Unremarkable. Spleen: Unremarkable. Adrenal glands: Normal. No mass. Kidneys and ureters: No mass. No radiodense calculi. No hydronephrosis. Stomach and bowel: Prominent wall thickening of the gastric antrum and duodenal bulb with associated mural and perigastric/periduodenal edema/fluid, similar to prior. No obstruction. No pneumatosis. Appendix: Dilated appendix without significant periappendiceal inflammatory change, similar to prior. Intraperitoneal space: No free fluid. No organized fluid collection. No free air. Vasculature: Unremarkable. No aneurysm. Lymph nodes: No pathologically enlarged lymph nodes. Urinary bladder: Unremarkable as visualized. Reproductive: Unremarkable. Bones/joints: No acute osseous abnormality. Soft tissues: Unremarkable. CT/CT abdomen pelvis w con* [id number] IMPRESSION: 1. Persistent gastroduodenitis/peptic ulcer disease, as described above. 2. Additional findings, as above.
[2024-11-22 16:21] LABS: Bilirubin Urine 1+ (Negative); Blood Urine Negative (Negative); Glucose Urine UA Negative (Normal); Ketones Urine 2+ (Negative); Leukocyte Esterase Urine Negative (Negative); Nitrate Urine Negative (Negative); Protein Urine Trace (Negative); Urine Appearance Cloudy (CLEAR); Urine Color Dark Yellow (Yellow); pH Urine 5.5 (5-7)
[2024-11-22 16:23] LABS: Add Urine Microscopic? YES
[2024-11-22] MEDS: iohexol 350 mg/mL 500 mL Btl (per mL) IV (16:29)
[2024-11-22 16:43] LABS: Specific Gravity, Urine 1.031 (1.005-1.030)
[2024-11-22 16:44] LABS: Calcium Oxalate Crystals Urine 0-4 /hpf; Squamous Epithelial Cell Urine 0-4 /hpf (0-5); UA Manual Slide Review YES; UA Slide Review UA Slide Review Perf; WBC Urine 0-4 /hpf (0-5)
== END 2024-11-22 17:14 | disposition home or self-care (01) ==
PROVIDERS: Emergency Provider Physician Assistant; PCP Registered Nurse
DX: K29.70 Gastritis, unspecified, without bleeding (principal); K29.80 Duodenitis without bleeding; K85.90 Acute pancreatitis without necrosis or infection, unspecified
CPT/HCPCS: 36415; 74018; 74177; 80053; 81001; 83605; 83690; 85025; 96361; 96374; 96375; 96376; 99285; J1171; J2405; J2470; J7030

== ENCOUNTER 2024-12-28 12:24 | Emergency (ER) | payer BC, MEDICAID, SELFPAY ==
[2024-12-28 12:45] VITALS: BP 133/89; PULSE 91; TEMP 36.8; O2SAT 99; BMI 23.0
[2024-12-28 13:15] LABS: Basophils % 0.2 %; Eosinophils % 0.1 %; Hematocrit 43.5 % (37-53); Lymphocytes % 11.7 %; Mean Corpuscular HGB Conc 34.5 g/dL (30-55); Mean Corpuscular Hemoglobin 31.9 pg (27-33); Mean Corpuscular Volume 92.6 fl (82-101); Mean Platelet Volume 9.4 fL (7.4-10.4); Monocytes # 0.4 10^3/uL (0.2-0.9); Monocytes % 4.2 %; Neutrophils # 7.23 10^3/uL (1.8-7.7); Neutrophils % 83.6 %; Nucleated Red Blood Cells % 0 %; Platelet Count 287 10^3/cmm (157-399); Red Cell Distribution Width 11.9 % (12.1-15.1); White Blood Count 8.65 10^3/uL (3.29-11.43)
[2024-12-28 13:33] LABS: Alanine Aminotransferase 10 U/L (0-41); Albumin Level 4.8 g/dL (3.5-5.2); Alkaline Phosphatase 85 U/L (40-130); Anion Gap 17.8 (5-19); Aspartate Amino Transferase 15 U/L (0-40); Blood Urea Nitrogen 12 mg/dL (6-20); Calcium 9.6 mg/dL (8.5-10.5); Carbon Dioxide 27 mmol/L (22-29); Chloride 97 mmol/L (98-107); Creatinine Clr Calc Pharmacy 147.8209; Globulin 3.4 g/dL (1.3-4.6); Glomerular Filtration Rate 113.5 mL/min (90-130); Glucose 97 mg/dL (65-115); Osmolality Calculated 286 mOsm/kg (285-295); Potassium 3.8 mmol/L (3.5-5.1); Sodium 138 mmol/L (136-145); Total Bilirubin 0.7 mg/dL (0.15-1.2); Total Protein 8.2 g/dL (6.6-8.7)
[2024-12-28] MEDS: lactated ringers 1,000 ML 999 ML IV (13:38)
--- NOTE | 2024-12-28 13:41 | W.ED.ABDPA2 ---
HPI - Abdominal Pain General: Chief Complaint: Abdominal Pain Stated Complaint: n/v/d, dark urine, abd pain Time Seen by Provider: 12/28/24 13:24 Source: patient Mode of arrival: ambulatory Limitations: no limitations History of Present Illness: Patient is a 29-year-old male with a history of alcohol use disorder, pancreatitis, extensive gastritis, duodenitis here complaining of upper abdominal pain. Patient was seen here at our facility last month. He since followed up with general surgery, Dr. Castanon. Unfortunately patient states he has recently had some family problems over the past week has relapsed on alcohol and began drinking heavily (6-7 shots) in the evenings. Last drink was approximately 2 to 3 days ago. He is having pain across his upper abdomen as well as nausea and vomiting. No hematemesis. MD elicited complaint: abdominal pain Pertinent past history: gastritis Onset (ago): day(s) Pain Consistency: constant Location: Epigastric, LUQ and RUQ Severity: severe Quality: stabbing and sharp Radiation: none Migration to: no migration Associated Symptoms: Reports nausea and vomiting; Denies change in bowel habits, chills, diarrhea, dysuria, fever(s) and hematemesis Related Data Home Medications ?Medication ?Instructions ?Recorded ?Confirmed fenofibrate 54 mg tablet 54 mg PO DAILY 11/22/24 12/28/24 buspirone 15 mg tablet 15 mg PO TID 12/28/24 12/28/24 naltrexone 50 mg tablet 50 mg PO DAILY 12/28/24 12/28/24 Previous Rx's ?Medication ?Instructions ?Recorded [id number] 1 cap PO TID #90 caps 11/22/24 36,000-114,000-180,000 unit capsule,delay rel (Creon) ondansetron 4 mg disintegrating 4 mg PO Q8H PRN nausea and 11/22/24 tablet vomiting #14 tabs pantoprazole 40 mg tablet,delayed 40 mg PO BID 14 days #28 tabs 12/28/24 release (Protonix) sucralfate 1 gram tablet (Carafate) 1 g PO TID 2 weeks #42 tabs 12/28/24 Allergies Allergy/AdvReac Type Severity Reaction Status Date / Time No Known Allergies Allergy Verified 12/28/24 12:50 Review of Systems Const: Denies: fever(s), chills, body aches, fatigue or malaise Card: Denies: chest pain Resp: Denies: dyspnea GI: Reports: abdominal pain, nausea and vomiting; Denies: hematemesis, diarrhea or change in bowel habits : Denies: flank pain or dysuria Musc: Denies: neck pain, back pain, extremity pain, extremity swelling, joint swelling or joint redness Skin/Breast: Denies: rash Neuro: Denies: headache(s) or dizziness Psych: Denies: suicidal ideation PFSH ED PFSH: Medical History Hypertriglyceridemia Transaminitis Alcoholism Acute pancreatitis Family History Other Cancer Dementia Social History Smoking and tobacco/nicotine status: unknown if used tobacco/nicotine Alcohol intake: current Substance/Drug Use: never Physical Exam Const: COMMON NORMALS: no acute distress, average body habitus, patient oriented x3, no limitations, healthy appearing, alert and well nourished GENERAL APPEARANCE: cooperative HENMT: COMMON NORMALS: normocephalic and atraumatic HEAD & SCALP: normal to inspection, normocephalic and atraumatic Eye: GENERAL EYE: appearance normal, both eyes and all related structures and normal light reflex DIRECT OPHTHALMOSCOPY: Yes normal light reflex Resp: COMMON NORMALS: normal respiratory effort and clear to auscultation bilaterally AUSCULTATION: clear to auscultation bilaterally Cardio: COMMON NORMALS: regular rate and regular rhythm RATE: regular rate RHYTHM: regular rhythm GI: COMMON NORMALS: Normal to inspection, nondistended, normoactive bowel sounds present, Soft to palpation, No hepatosplenomegaly present and no masses INSPECTION: Yes normal to inspection AUSCULTATION: Yes normoactive bowel sounds PALPATION: Yes Soft to palpation, Yes Tenderness to palpation present (GI) (throughout upper abdomen), Yes Guarding due to palpation present (GI), No Rigid due to palpation and Yes No hepatosplenomegaly present : COMMON NORMALS: Yes no CVA tenderness BLADDER/KIDNEY EXAM: Yes no CVA tenderness Back/Pelvis: COMMON NORMALS: no CVA tenderness and thoracic and lumbar spine normal to inspection Extremity: GENERAL: Yes normal exam except as noted Neuro: COMMON NORMALS: patient oriented x3, moves all extremities, no focal motor deficits and no sensory deficits noted SENSORIUM/ORIENTATION: Yes alert Skin: COMMON NORMALS: no rashes or lesions noted GENERAL SKIN EXAM: no rashes or lesions noted Course Vital Signs: Vital signs: Vital Signs Temperature 98.3 F 12/28/24 12:45 Pulse Rate 91 12/28/24 12:45 Blood Pressure 133/89 12/28/24 12:45 Pulse Oximetry 99 12/28/24 12:45 Oxygen Delivery Me thod Room Air 12/28/24 12:45 MDM - Abdominal Pain Medical Decision Making Patient feeling better after medications given here. His blood work overall is unremarkable. He has normal LFTs. Lipase is normal. I do not feel CT imaging is indicated at this time. Symptoms most likely related to a flare of his known gastritis/duodenitis due to recent alcohol use. Will be placed back on his Protonix and Carafate x 2 weeks. Discussed alcohol cessation and other dietary modifications with his condition. He can follow-up with primary care or Dr. Castanon in 1 week if symptoms are not improving. Return precautions discussed. Differential Diagnosis Likely abdominal pain, gastroenteritis and pancreatitis Medical Records I reviewed the patient's medical records. Lab Data I reviewed the patient's lab results. 12/28/24 13:04 12/28/24 13:04 Labs/Radiology: Laboratory Results WBC 8.65 10^3/uL (3.29-11.43) 12/28/24 13:04 RBC 4.70 10^6/uL (3.85-5.65) 12/28/24 13:04 Hgb 15.00 g/dL (11.27-16.99) 12/28/24 13:04 Hct 43.5 % (37-53) 12/28/24 13:04 MCV 92.6 fl (82-101) 12/28/24 13:04 MCH 31.9 pg (27-33) 12/28/24 13:04 MCHC 34.5 g/dL (30-55) 12/28/24 13:04 RDW 11.9 % (12.1-15.1) L 12/28/24 13:04 Plt Count 287 10^3/cmm (157-399) 12/28/24 13:04 MPV 9.4 fL (7.4-10.4) 12/28/24 13:04 Neut % (Auto) 83.6 % 12/28/24 13:04 Lymph % (Auto) 11.7 % 12/28/24 13:04 [place] % (Auto) 4.2 % 12/28/24 13:04 Eos % (Auto) 0.1 % 12/28/24 13:04 Baso % (Auto) 0.2 % 12/28/24 13:04 Neut # (Auto) 7.23 10^3/uL (1.8-7.7) 12/28/24 13:04 Lymph # (Auto) 1.0 10^3/uL (0.8-4.8) 12/28/24 13:04 [place] # (Auto) 0.4 10^3/uL (0.2-0.9) 12/28/24 13:04 Eos # (Auto) 0.0 10^3/uL (0.0-0.8) 12/28/24 13:04 Baso # (Auto) 0.0 10^3/uL (0.0-0.1) 12/28/24 13:04 Nucleated RBC % (auto) 0 % 12/28/24 13:04 Nucleated RBCs # 0.0 /100WBC 12/28/24 13:04 Sodium 138 mmol/L (136-145) 12/28/24 13:04 Potassium 3.8 mmol/L (3.5-5.1) 12/28/24 13:04 Chloride 97 mmol/L (98-107) L 12/28/24 13:04 Carbon Dioxide 27 mmol/L (22-29) 12/28/24 13:04 Anion Gap 17.8 (5-19) 12/28/24 13:04 BUN 12 mg/dL (6-20) 12/28/24 13:04 Creatinine 0.8 mg/dL (0.7-1.2) 12/28/24 13:04 GFR Calculation 113.5 mL/min (90-130) 12/28/24 13:04 Glucose 97 mg/dL (65-115) 12/28/24 13:04 Calculated Osmolality 286 mOsm/kg (285-295) 12/28/24 13:04 Calcium 9.6 mg/dL (8.5-10.5) 12/28/24 13:04 Magnesium 2.0 mg/dL (1.7-2.3) 12/28/24 13:04 Total Bilirubin 0.7 mg/dL (0.15-1.2) 12/28/24 13:04 AST 15 U/L (0-40) 12/28/24 13:04 ALT 10 U/L (0-41) 12/28/24 13:04 Alkaline Phosphatase 85 U/L (40-130) 12/28/24 13:04 Total Protein 8.2 g/dL (6.6-8.7) 12/28/24 13:04 Albumin 4.8 g/dL (3.5-5.2) 12/28/24 13:04 Globulin 3.4 g/dL (1.3-4.6) 12/28/24 13:04 Lipase 50 U/L (13-60) 12/28/24 13:04 No radiology studies performed this visit Discharge Plan Discharge Patient Disposition: Home Clinical Impression: Gastritis and duodenitis Condition: Stable Prescriptions: New sucralfate [Carafate] 1 gram tablet 1 g PO TID 14 Days Qty: 42 0RF Continued pantoprazole [Protonix] 40 mg tablet,delayed release (DR/EC) 40 mg PO BID 14 Days Qty: 28 6RF No Action fenofibrate 54 mg tablet 54 mg PO DAILY Creon 36,000-114,000- 180,000 unit capsule,delayed release(DR/EC) 1 cap PO TID Qty: 90 0RF Rx Instructions: administer with meals and/or snacks ondansetron 4 mg tablet,disintegrating 4 mg PO Q8H PRN (Reason: nausea and vomiting) Qty: 14 0RF naltrexone 50 mg tablet 50 mg PO DAILY buspirone 15 mg tablet 15 mg PO TID Discharge Orders: Discharge ED (Routine); Ordered 12/28/24 Ordered By: Jasmin Nielson Referrals: Katlin Sheppard FNP [Primary Care Provider] - Patient Instructions: Gastritis (DC), Diet for Stomach Ulcers and Gastritis (ED) Activity Restrictions/Additional Instructions: As we discussed, I would like you to do a bland liquid diet over the next 2 weeks. Avoid alcohol, anti-inflammatories, spicy, acidic foods. Please fill your prescription medications today and continue for 2 weeks. You need to return to the emergency department for worsening pain, inability to hold down food or water, generally feeling worse or unwell, fevers, or any other concerns you may have. Print Language: Azerbaijani Coding Level of Care Code ED Digital Intern for [employer]
[2024-12-28] MEDS: LORazepam 2 mg/mL INJ 1 mL 1 MG IVP (13:51)
[2024-12-28] MEDS: pantoprazole 40 mg SDV IVP (13:51)
[2024-12-28] MEDS: lidocaine 2% viscous 15 ML, aluminum-mag hydrox-simethicon 30 ML, sucralfate oral liq 1 GM PO (13:51)
[2024-12-28 14:04] LABS: Lipase 50 U/L (13-60)
[2024-12-28] MEDS: HYDROmorphone 0.5 MG/0.5 ML INJ IVP (14:25)
[2024-12-28 14:49] VITALS: BP 135/94; PULSE 91; O2SAT 95
== END 2024-12-28 14:50 | disposition home or self-care (01) ==
PROVIDERS: Emergency Medicine; Emergency Provider Physician Assistant; PCP Registered Nurse
DX: K29.70 Gastritis, unspecified, without bleeding (principal); K29.80 Duodenitis without bleeding
CPT/HCPCS: 36415; 80053; 83690; 83735; 85025; 96361; 96374; 96375; 99285; J1171; J2060; J2470; J7120; J9999

== ENCOUNTER 2025-02-02 09:38 | Emergency (ER) | payer BC, MEDICAID, SELFPAY ==
[2025-02-02 09:49] VITALS: BP 149/96; PULSE 93; RESP 16; TEMP 37.4; O2SAT 98; BMI 21.5
--- NOTE | 2025-02-02 10:52 | ED_ITS ---
HPI - Abdominal Pain 2 General: Chief Complaint: Abdominal Pain Stated Complaint: abd pain, n/v/d, chills Time Seen by Provider: 02/02/25 10:51 History of Present Illness: 29-year-old male with a history of alcoh olism, chronic pancreatitis, duodenitis, gastritis, hypertriglyceridemia presents along with his mother to the emergency department. Patient reports that he drank at a wedding 12 days ago. He has not had any alcohol since in the last 11 days. He has had daily abdominal pain, nausea, intermittent nonbloody vomiting, and some pain radiating into his right flank and central back. He reports it feels similar to his multiple previous episodes of pancreatitis and duodenitis. He also ran out of his Protonix 5 days ago. The patient does take Carafate intermittently. He has not on Creon, fenofibrate, or naltrexone; these were listed on his prescription list but I think they are leftover from discharge in October. In speaking to the patient, he really did not understand that elevated triglyceride levels can cause severe problems both in his pancreas and elsewhere. No black or bloody stools. Associated Symptoms: Denies chills, diarrhea, dysuria, fever(s) and syncope Related Data Home Medications ?Medication ?Instructions ?Recorded ?Confirmed buspirone 15 mg tablet 15 mg PO TID 12/28/24 naltrexone 50 mg tablet 50 mg PO DAILY 12/28/2401/12 Previous Rx's ?Medication ?Instructions ?Recorded ondansetron 4 mg disintegrating 4 mg PO Q8H PRN nausea and 11/22/24 tablet vomiting #14 tabs pantoprazole 40 mg tablet,delayed 40 mg PO BID 14 days #28 tabs 12/28/24 release (Protonix) fenofibrate micronized 67 mg 67 mg PO DAILY #30 caps 0 02/02/25 capsule [id number] 1 cap PO BID 30 days #60 cap s 02/02/25 24,000-76,000-120,000 unit capsule,delayed rel (Creon) naltrexone 50 mg tablet 50 mg PO DAILY alcohol absti nence 02/02/25 #30 tabs ondansetron 4 mg disintegrating 4 mg PO Q6H PRN nausea and 02/02/25 tablet vomiting #14 tabs pantoprazole 40 mg granules 40 mg PO DAILY 8 weeks #60 ea 02/02/25 delayed-release for susp in packet (Protonix) promethazine 25 mg rectal 25 mg NM Q6H PRN nausea and 02/02/25 suppository vomiting #12 ea sennosides 8.6 mg-docusate sodium 1 tab-cap PO BID PRN constipation 02/02/25 50 mg tablet (Senna with Docusate #30 tabs Sodium) sucralfate 1 gram tablet 1 g PO TID 30 days #90 tabs 02/02/25 Allergies Allergy/AdvReac Type Severity Reaction Status Date / Time No Known Allergies Allergy Verified 12/28/24 12:50 Review of Systems 2 General: Reports: 10 or more systems reviewed and unremarkable except in HPI and below Const: Denies: fever(s), chills or body aches Eyes: Denies: change in vision ENMT: Denies: throat pain Card: Denies: chest pain, edema or syncope Resp: Denies: dyspnea or productive cough GI: Denies: diarrhea : Denies: dysuria or urinary frequency Musc: Denies: neck pain, extremity pain or extremity swelling Skin/Breast: Denies: rash or erythema Neuro: Denies: headache(s), numbness in extremities, weakness in extremities, lack of coordination or difficulty walking PFSH ED 2 PFSH: Medical History Hypertriglyceridemia Transaminitis Alcoholism Acute pancreatitis Family History Other Cancer Dementia Social History Smoking and tobacco/nicotine status: unknown if used tobacco/nicotine Alcohol intake: current Substance/Drug Use: never Physical Exam 2 Narrative: EXAM NARRATIVE: Abdomen is soft, nondistended, tender in the epigastric, right upper quadrant, left upper quadrant. Some pain with firm percussion through the flanks bilaterally. No peritoneal signs. Does not appear to be guarding. Const: COMMON NORMALS: no limitations, alert and well nourished EXAM LIMITATIONS: no altered mental status GENERAL APPEARANCE: cooperative, well kempt and well developed ORIENTATION/CONSCIOUSNESS: Yes awake; not confused HENMT: COMMON NORMALS: normocephalic, atraumatic, external ears normal and Normal external nose present HEAD & SCALP: normal to inspection, normocephalic and atraumatic FACE & SINUS: face symmetric NOSE: Normal external nose present EXTERNAL EAR: Yes external ears normal MOUTH: lip normal; no muffled voice Eye: COMMON NORMALS: EOMs intact bilaterally and conjunctivae normal G ENERAL EYE: appearance normal, both eyes and all related structures C ONJUNCTIVA: Yes conjunctivae normal Neck/C-Spine: COMMON NORMALS: no JVD GENERAL: Yes normal visual inspection and Yes trachea midline Resp: COMMON NORMALS: normal respiratory effort, No use of accessory muscles and clear to auscultation bilaterally EFFORT & INSPECTION: Yes able to speak in complete sentences and Yes symmetric chest movement AUSCULTATION: clear to auscultation bilaterally Cardio: COMMON NORMALS: no JVD, regular rate and regular rhythm RATE: r egular rate RHYTHM: regular rhythm PERIPHERAL PULSES: radial pulses present GI: COMMON NORMALS: Soft to palpation PALPATION: Yes Soft to palpation and No Guarding due to palpation present (GI) Back/Pelvis: COMMON NORMALS: thoraco-lumbar ROM normal Extremity: COMMON NORMALS: normal to inspection GENERAL: Yes normal exam except as noted Neuro: COMMON NORMALS: moves all extremities, no focal motor deficits and no sensory deficits noted SENSORIUM/ORIENTATION: Yes alert Psych: COMMON NORMALS: mental status grossly normal, Normal thought process present, cooperative, normal affect and speech normal APPEARANCE: Yes well kempt SPEECH: Yes normal speech THOUGHT PROCESS: Normal thought process present Skin: COMMON NORMALS: no rashes or lesions noted, turgor normal and no jaundice GENERAL SKIN EXAM: no rashes or lesions noted and turgor normal Course 2 Vital Signs: Vital signs: Vital Signs Temperature 99.3 F 02/02/25 09:49 Pulse Rate 72 02/02/25 12:13 Respiratory Rate 16 02/02/25 09:49 Blood Pressure 147/100 02/02/25 12:13 Pulse Oximetry 97 02/02/25 12:13 Oxygen Delivery Me thod Room Air 02/02/25 09:49 MDM - Abdominal Pain Medical Decision Making Patient with alcoholism and hypertriglyceridemia with poor understanding of his underlying condition. The patient's last 2 visits have predominantly been to gastroduodenitis, sometimes with mild pancreatitis. I do not think he has any perforation based on his timeline and abdominal exam. He is not exhibiting any peritoneal signs or distention. He does report feeling pretty dehydrated and I think it is reasonable to give him 2 L of IV fluids. He also has nausea and has been out of his Protonix. We will give him Protonix IV, antiemetics, pain control. He has had 6 [address] scans just in our system. This equates to at least 1000 x-rays of the abdomen and pelvis. This is a significant risk factor for cancer given his young age. Given the fact that he does not have any peritoneal signs today, I spoke to him about doing a CT scan or treating clinically. The patient would like to treat clinically. Since his lipase is rarely significantly elevated, they have usually been relying on radiographic appearance of his pancreas to determine pancreatitis. He did fairly recently have an upper GI and he did not have any perforation or bleeding ulcer. Update: WBC 7 w/o left shift. Hgb high (suspect hemoconcentration) Platelets okay CMP unremarkable CRP normal Lipase 169 (mild elevation) Ethanol <10 Triglycerides normal today 1310 Patient reports nausea improved but pain is still present. He reports morphine rarely works for him. He is requesting Dilaudid. He was given 1 mg of IV Dilaudid for pain control. At this time, the patient's abdominal exam and laboratory workup are reassuring. If we can get his pain and nausea controlled, he can be discharged with antiemetics, Protonix, fenofibrate, Creon, naltrexone, Carafate Lab Data 02/02/25 10:51 02/02/25 10:51 Labs/Radiology: Laboratory Results WBC 6.98 10^3/uL (3.29-11.43) 02/02/25 10:51 RBC 5.48 10^6/uL (3.85-5.65) 02/02/25 10:51 Hgb 17.60 g/dL (11.27-16.99) H 02/02/25 10:51 Hct 52.2 % (37-53) 02/02/25 10:51 MCV 95.3 fl (82-101) 02/02/25 10:51 MCH 32.1 pg (27-33) 02/02/25 10:51 MCHC 33.7 g/dL (30-55) 02/02/25 10:51 RDW 11.4 % (12.1-15.1) L 02/02/25 10:51 Plt Count 253 10^3/cmm (157-399) 02/02/25 10:51 MPV 9.7 fL (7.4-10.4) 02/02/25 10:51 Neut % (Auto) 70.7 % 02/02/25 10:51 Lymph % (Auto) 21.1 % 02/02/25 10:51 Rincon % (Auto) 7.0 % 02/02/25 10:51 Eos % (Auto) 0.6 % 02/02/25 10:51 Baso % (Auto) 0.3 % 02/02/25 10:51 Neut # (Auto) 4.94 10^3/uL (1.8-7.7) 02/02/25 10:51 Lymph # (Auto) 1.5 10^3/uL (0.8-4.8) 02/02/25 10:51 Rincon # (Auto) 0.5 10^3/uL (0.2-0.9) 02/02/25 10:51 Eos # (Auto) 0.0 10^3/uL (0.0-0.8) 02/02/25 10:51 Baso # (Auto) 0.0 10^3/uL (0.0-0.1) 02/02/25 10:51 Nucleated RBC % (auto) 0 % 02/02/25 10:51 Nucleated RBCs # 0.0 /100WBC 02/02/25 10:51 Sodium 141 mmol/L (136-145) 02/02/25 10:51 Potassium 4.0 mmol/L (3.5-5.1) 02/02/25 10:51 Chloride 103 mmol/L (98-107) 02/02/25 10:51 Carbon Dioxide 24 mmol/L (22-29) 02/02/25 10:51 Anion Gap 18.0 (5-19) 02/02/25 10:51 BUN 9 mg/dL (6-20) 02/02/25 10:51 Creatinine 0.6 mg/dL (0.7-1.2) L 02/02/25 10:51 GFR Calculation 158.2 mL/min (90-130) H 02/02/25 10:51 Glucose 99 mg/dL (65-115) 02/02/25 10:51 Calculated Osmolality 291 mOsm/kg (285-295) 02/02/25 10:51 Lactic Acid 0.9 mmol/L (0.5-2.2) 02/02/25 10:51 Calcium 9.5 mg/dL (8.5-10.5) 02/02/25 10:51 Total Bilirubin 0.7 mg/dL (0.15-1.2) 02/02/25 10:51 AST 20 U/L (0-40) 02/02/25 10:51 ALT 14 U/L (0-41) 02/02/25 10:51 Alkaline Phosphatase 71 U/L (40-130) 02/02/25 10:51 C-Reactive Protein 3.0 mg/L (0.0-4.9) 02/02/25 10:51 Total Protein 8.0 g/dL (6.6-8.7) 02/02/25 10:51 Albumin 4.6 g/dL (3.5-5.2) 02/02/25 10:51 Globulin 3.4 g/dL (1.3-4.6) 02/02/25 10:51 Triglycerides 100 mg/dL (0-150) 02/02/25 10:51 Lipase 169 U/L (13-60) H 02/02/25 10:51 Ethyl Alcohol < 10 mg/dL (0-10) 02/02/25 10:51 No radiology studies performed this visit Discharge Plan Discharge Patient Disposition: Home Clinical Impression: Gastroduodenitis without bleeding, History of alcohol abuse, Chronic pancreatitis Condition: Stable Prescriptions: New sennosides-docusate sodium [Senna with Docusate Sodium] 8.6-50 mg tablet 1 tab-cap PO BID PRN (Reason: constipation) Qty: 30 0RF ondansetron 4 mg tablet,disintegrating 4 mg PO Q6H PRN (Reason: nausea and vomiting) Qty: 14 2RF pantoprazole [Protonix] [address] for susp in packet 40 mg PO DAILY 56 Days Qty: 60 0RF promethazine 25 mg suppository 25 mg NM Q6H PRN (Reason: nausea and vomiting) Qty: 12 1RF Creon 24,000-76,000 -120,000 unit capsule,delayed release(DR/EC) 1 cap PO BID 30 Days Qty: 60 0RF Rx Instructions: administer with meals and/or snacks fenofibrate micronized 67 mg capsule 67 mg PO DAILY Qty: 30 1RF naltrexone 50 mg tablet 50 mg PO DAILY Qty: 30 0RF Continued sucralfate 1 gram tablet 1 g PO TID 30 Days Qty: 90 0RF No Action ondansetron 4 mg tablet,disintegrating 4 mg PO Q8H PRN (Reason: nausea and vomiting) Qty: 14 0RF naltrexone 50 mg tablet 50 mg PO DAILY buspirone 15 mg tablet 15 mg PO TID pantoprazole [Protonix] 40 mg tablet,delayed release (DR/EC) 40 mg PO BID 14 Days Qty: 28 6RF Discharge Orders: Discharge ED (Routine); Ordered 02/02/25 Ordered By: Tiburcio Mendez Referrals: Katlin Sheppard FNP [Primary Care Provider] - 4-7 days (Gastroduodenitis, alcohol abuse in early remission, chronic pancreatitis, history of hypertriglyceridemia) Discharge Diet: Advance as tolerated Discharge Activity: Increase activity as tolerated Patient Instructions: Pancreatitis (ED), Diet for Stomach Ulcers and Gastritis (ED), Abuse of Alcohol (ED), Pain Management Activity Restrictions/Additional Instructions: There are several important instructions. -It is imperative that you never use alcohol again. It is clear that there is a pattern of bodily harm that has been established through multiple visits. Any use of alcohol should and will be considered alcohol abuse, even small amounts, due to the fact that it is known to cause you serious bodily harm. Naltrexone has been prescribed. This will help eliminate cravings and reduce the likelihood of alcohol relapse. -Do not start naltrexone if you are using an opiate medication. -In order to help your pancreas, please eat a low-fat diet and use the Creon prescription provided for the next 30 days. -You have a history of high triglycerides. We are going to help keep your triglycerides down until you can get them rechecked in follow-up. The medication we are going to use is fenofibrate. Please read the package instructions. Many people do experience some gastrointestinal upset with this medication. - We suspect that your stomach and duodenum are inflamed. You have been prescribed nausea medications, Protonix, and Carafate. I have also attached information about a diet for stomach ulcers and gastritis. Follow-up with your nurse practitioner or DrItzel In the next 4 to 7 days. Please read all discharge instructions and abide by recommendations and return precautions. Make an appointment to follow-up with your primary care doctor as directed for follow-up. Return to ER if getting worse or other emergent symptoms. Print Language: Kinyarwanda Coding Level of Care Code ED [employer] for [employer]
[2025-02-02] MEDS: sodium chloride 0.9% 1,000 ML 999 ML IV ×2 (10:58→11:51)
[2025-02-02 10:59] LABS: Basophils % 0.3 %; Eosinophils % 0.6 %; Hematocrit 52.2 % (37-53); Lymphocytes # 1.5 10^3/uL (0.8-4.8); Lymphocytes % 21.1 %; Mean Corpuscular HGB Conc 33.7 g/dL (30-55); Mean Corpuscular Hemoglobin 32.1 pg (27-33); Mean Corpuscular Volume 95.3 fl (82-101); Mean Platelet Volume 9.7 fL (7.4-10.4); Monocytes # 0.5 10^3/uL (0.2-0.9); Neutrophils # 4.94 10^3/uL (1.8-7.7); Neutrophils % 70.7 %; Nucleated Red Blood Cells % 0 %; Platelet Count 253 10^3/cmm (157-399); Red Blood Count 5.48 10^6/uL (3.85-5.65); Red Cell Distribution Width 11.4 % (12.1-15.1); White Blood Count 6.98 10^3/uL (3.29-11.43)
[2025-02-02] MEDS: ondansetron 2 mg/ML SDV 2 mL 4 MG IVP (10:59)
[2025-02-02 11:21] LABS: Alanine Aminotransferase 14 U/L (0-41); Albumin Level 4.6 g/dL (3.5-5.2); Alkaline Phosphatase 71 U/L (40-130); Blood Urea Nitrogen 9 mg/dL (6-20); Calcium 9.5 mg/dL (8.5-10.5); Carbon Dioxide 24 mmol/L (22-29); Chloride 103 mmol/L (98-107); Creatinine Clr Calc Pharmacy 192.0121; Globulin 3.4 g/dL (1.3-4.6); Glomerular Filtration Rate 158.2 mL/min (90-130); Glucose 99 mg/dL (65-115); Lipase 169 U/L (13-60); Osmolality Calculated 291 mOsm/kg (285-295); Sodium 141 mmol/L (136-145); Total Bilirubin 0.7 mg/dL (0.15-1.2)
[2025-02-02 11:23] LABS: Alcohol Level < 10 mg/dL (0-10); Aspartate Amino Transferase 20 U/L (0-40)
[2025-02-02 11:31] LABS: Lactic Sepsis W/Reflex 0.9 mmol/L (0.5-2.2)
[2025-02-02 11:32] LABS: Triglycerides 100 mg/dL (0-150)
[2025-02-02] MEDS: pantoprazole 40 mg SDV 80 MG IVP (11:48)
[2025-02-02] MEDS: prochlorperazine 10 mg/2 mL Inj IVP (11:49)
[2025-02-02] MEDS: diphenhydrAMINE 50 mg/mL SDV 1mL IVP (11:52)
[2025-02-02] MEDS: morphine 4 mg/mL SDV 1 mL 10 MG IVP (12:11)
[2025-02-02 12:13] VITALS: BP 147/100; PULSE 72; O2SAT 97
[2025-02-02] MEDS: HYDROmorphone 0.5 MG/0.5 ML INJ 1 MG IVP (13:19)
[2025-02-02 13:45] VITALS: BP 138/88; PULSE 72; O2SAT 97
[2025-02-02 13:57] VITALS: BP 138/88; PULSE 73; O2SAT 96
== END 2025-02-02 14:00 | disposition home or self-care (01) ==
PROVIDERS: Emergency Medicine; Emergency Provider Emergency Medicine; PCP Registered Nurse
DX: K29.90 Gastroduodenitis, unspecified, without bleeding (principal); K86.1 Other chronic pancreatitis
CPT/HCPCS: 80053; 80307; 83605; 83690; 84478; 85025; 86140; 96361; 96374; 96375; 96376; 99284; J0780; J1171; J1200; J2270; J2405; J2470; J7030